=== PATIENT | male | born 1940 | race Caucasian/White ===

== ENCOUNTER → 2016-11-19 | Day surgery (SDC) | payer MEDICARE ==
[~2016-11-19] VITALS: Ht 180.3 cm; Wt 86.2 kg
[~2016-11-19] MED LIST: AMLO5TAB2 PO; ASP81CT PO; HURRICAINE EXT TUBE (BENZOCAINE) ONE; HURRICAINE EXT TUBE (BENZOCAINE) XX PRN; LISI1TAB6 PO; MIDAZOLAM 2 MG/2 ML (VERSED) VIAL ONE; NS IV 500 ML 500 ML IV PRN; NS IV 500 ML 500 ML ONE; OMEG1CAP51 PO; fentaNYL INJECTION 100 MCG/2 ML AMP ONE
[2016-11-19 12:50] VITALS: BP 144/93
[2016-11-19] MEDS: fentaNYL INJECTION 100 MCG/2 ML AMP IVP PRN ×2 (15:04→15:07)
--- NOTE | 2016-11-19 15:04 | Conscious Sedation/ASA ---
Conscious Sedation Pre-Proced Time Reviewed: 15:04 ASA Class: 2 Airway Mallampati Classification: ([place] appropriate class) I. II. III, IV Lungs Heart ASA score ASA 1: a normal healthy patient ASA 2: a patient with a mild systemic disease (mid diabetes, controlled hypertension, obesity ASA 3: a patient with a severe systemic disease that limits activity (angina , COPD, prior Myocardial infarction) ASA 4: a patient with an incapacitating disease that is a constant threat to life (CHF, renal failure) ASA 5: a moribund patient not expected to survive 24 hrs. (ruptured aneurysm) ASA 6: a declared brain patient whose organs are being harvested. For emergent operations, add the letter E after the classification Grade 1 Sedation Plan: Discussed options with patient/fam Note The patient is an appropriate candidate to undergo the planned procedure, sedation, and anesthesia. The patient immediately re-assessed prior to indication. CHRIS BLOOD MD Nov 19, 2016 3:04 pm
--- NOTE | 2016-11-19 15:04 | History & Physicial ---
History of Present Illness History of Present Illness Reason for visit/HPI to undergo an upper endoscopy regarding possible food impaction in his esophagus. Date of Admission Date Seen by Provider: Nov 19, 2016 Time Seen by Provider: 15:02 I consulted on this patient on 11/19/16 15:01 Attending Physician Chris Blood MD Admitting Physician Shaji Gil DO Consult Allergies and Home Medications Allergies Coded Allergies: Penicillins (Verified Allergy, Unknown, 11/19/16) Home Medications Amlodipine Besylate 5 Mg Tablet, 5 MG PO DAILY, (Reported) Lisinopril/Hydrochlorothiazide 1 Each Tablet, 1 EACH PO DAILY, (Reported) Past Yitzitj-Tyjihj-Shcgqf Hx Patient Social History Marrital Status: Employed/Student: self-employed Alcohol Use: Occasionally Uses Recreational Drug Use: No Smoking Status: Never a Smoker Recent Foreign Travel: No Contact w/other who traveled: No Recent Hopitalizations: No Immunizations Up To Date Date of Pneumonia Vaccine: May 06, 2016 Surgeries HX Surgeries: Yes (ROTAROR CUFF SURG. X2 ) Surgeries: Joint Replacement Respiratory Hx Respiratory Disorders: No Cardiovascular Hx Cardiovascular Disorders: No Neurological Hx Neurological Disorders: No Reproductive System Hx Reproductive Disorders: No Sexually Transmitted Disease: No HIV/AIDS: No Genitourinary Hx Genitourinary Disorders: No Gastrointestinal Hx Gastrointestinal Disorders: No Musculoskeletal Hx Musculoskeletal Disorders: No Endocrine Hx Endocrine Disorders: No HEENT HX ENT Disorders: No Cancer Hx Cancer: No Psychosocial Hx Psychiatric Problems: No Blood Transfusions Hx Blood Disorders: No Constitutional: no symptoms reported EENTM: throat pain Respiratory: cough Cardiovascular: no symptoms reported Gastrointestinal: dysphagia, nausea, vomiting Genitourinary: no symptoms reported Musculoskeletal: no symptoms reported Skin: no symptoms reported Psychiatric/Neurological: No Symptoms Reported Physical Exam Vital Signs Vital Sign - Last 12Hours 11/19/16 12:50 Temp 97.7 Pulse 76 Resp 20 B/P (MAP) 144/93 Pulse Ox 97 O2 Delivery Room Air Capillary Refill : General Appearance: Moderate Distress HEENT: Normal ENT Inspection Neck: Normal Inspection Respiratory: Lungs Clear Cardiovascular: Regular Rate, Rhythm Gastrointestinal: Non Tender, Soft Extremity: Normal Inspection Skin: Warm/Dry Assessment/Plan Assessment and Plan gentleman with a possible food impaction in his esophagus. Upper endoscopy with therapeutic intent offered. Willing to proceed Problems: CHRIS BLOOD MD Nov 19, 2016 3:04 pm
[2016-11-19] MEDS: MIDAZOLAM 2 MG/2 ML (VERSED) VIAL IVP PRN ×3 (15:06→15:08)
--- NOTE | 2016-11-19 15:23 | Endo Procedure Record ---
Endo Procedure Report Date of Procedure Nov 19, 2016 Surgeon (s) CHRIS BLOOD MD Post Procedure/Op Diagnosis impacted food in the distal esophagus. Distal esophageal stricture with inflammation Procedure Performed EGD with disimpaction of food Description of Procedure Anesthesia Type: Conscious Sedation Specimen(s) collected/removed none Description of the Procedure Indication for procedure: This gentleman presented with infection of the piece of rib in his esophagus over a 24-hour period he was offered therapeutic endoscopy.informed consent was obtained after reviewing the procedure in detail. Description of procedure:He was placed in the left lateral disposition and his vital signs were monitored. Conscious sedation was achieved using Versed and fentanyl. The flexible gastroscope was introduced down the esophagus where a piece of rib was found impacted at the distal end. It was gently disimpacted into the stomach. Further examination confirmed an inflamed distal esophageal stricture To avoid iatrogenic perforation, balloon dilatation was deferred. He tolerated the procedure well and was taken back to the nursing area in a stable condition. Impression: Food impaction at the distal esophagus due to a stricture. Successful endoscopic disimpaction.Will schedule an elective balloon dilatation in 2 weeks. Copies To: CAROLANN ROMAN XAVIER M MD Nov 19, 2016 3:23 pm
--- NOTE | 2016-11-19 15:25 | Discharge Inst-Simple/Standard ---
Discharge Inst-Standard Discharge Medications New, Converted or Re-Newed RX: Other Patient Instructions/Follow Up Plan of Care/Instructions/FU: my office will schedule an elective balloon dilatation in 2 weeks.soft diet for 3-4 days. Activity as Tolerated: Yes Discharge Diet: Soft Diet CHRIS BLOOD MD Nov 19, 2016 3:25 pm
[2016-11-19 15:50] VITALS: BP 104/55
[2016-11-19 16:20] VITALS: BP 145/93
[2016-11-19 16:25] VITALS: BP 145/93
== END | disposition home or self-care (01) ==
LOC: ENDO 12:27
PROVIDERS: ATTEND Surgery
DX: K22.2 Esophageal obstruction (principal); T18.128A Food in esophagus causing other injury, initial encounter

== ENCOUNTER → 2016-11-25 | Outpatient (CLI) | payer MEDICARE ==
[~2016-11-25] MED LIST changes: -HURRICAINE EXT TUBE (BENZOCAINE) ONE; -HURRICAINE EXT TUBE (BENZOCAINE) XX PRN; -MIDAZOLAM 2 MG/2 ML (VERSED) VIAL ONE; -NS IV 500 ML 500 ML IV PRN; -NS IV 500 ML 500 ML ONE; -fentaNYL INJECTION 100 MCG/2 ML AMP ONE
== END ==
LOC: PREOP 05:46
PROVIDERS: ATTEND Surgery
DX: Z01.818 Encounter for other preprocedural examination (principal); K22.2 Esophageal obstruction

== ENCOUNTER 2016-12-01 09:20 | Day surgery (SDC) | payer MEDICARE ==
[~2016-12-01] VITALS: Ht 177.8 cm; Wt 86.2 kg
[2016-12-01] MEDS ORDERED: NS IV 500 ML 500 ML ONE (09:28)
[2016-12-01] MEDS ORDERED: NS IV 500 ML 500 ML IV ONE (09:30)
[2016-12-01 09:40] VITALS: BP 133/90
[2016-12-01] MEDS ORDERED: OMG1KC PO (09:44)
[2016-12-01] MEDS ORDERED: ASPI-586 PO (09:44)
--- NOTE | 2016-12-01 10:46 | Conscious Sedation/ASA ---
Conscious Sedation Pre-Proced Time Reviewed: 10:46 ASA Class: 2 Airway Mallampati Classification: (osage appropriate class) I. II. III, IV Lungs Heart ASA score ASA 1: a normal healthy patient ASA 2: a patient with a mild systemic disease (mid diabetes, controlled hypertension, obesity ASA 3: a patient with a severe systemic disease that limits activity (angina , COPD, prior Myocardial infarction) ASA 4: a patient with an incapacitating disease that is a constant threat to life (CHF, renal failure) ASA 5: a moribund patient not expected to survive 24 hrs. (ruptured aneurysm) ASA 6: a declared brain patient whose organs are being harvested. For emergent operations, add the letter E after the classification Grade 1 Sedation Plan: Discussed options with patient/fam Note The patient is an appropriate candidate to undergo the planned procedure, sedation, and anesthesia. The patient immediately re-assessed prior to indication. CHRIS BLOOD MD Dec 01, 2016 10:46 am
--- NOTE | 2016-12-01 10:46 | History & Physicial ---
History of Present Illness History of Present Illness Reason for visit/HPI to undergo endoscopic balloon dilatation of an esophageal stricture Date of Admission Date Seen by Provider: Dec 01, 2016 Time Seen by Provider: 10:45 I consulted on this patient on 12/01/16 10:45 Attending Physician Chris Blood MD Admitting Physician Shaji Gil DO Consult Allergies and Home Medications Allergies Coded Allergies: Penicillins (Verified Allergy, Unknown, 11/19/16) Home Medications Amlodipine Besylate 5 Mg Tablet, 5 MG PO DAILY, (Reported) Aspirin 81 Mg Tablet.dr, 81 MG PO DAILY, (Reported) Lisinopril/Hydrochlorothiazide 1 Each Tablet, 1 EACH PO DAILY, (Reported) [place] 3 Polyunsat Fatty Acids 1,000 Mg Cap, 3,000 MG PO DAILY, (Reported) Past Uajdtdj-Xzvsif-Hhtsts Hx Patient Social History Marrital Status: Employed/Student: retired Alcohol Use: Regular Use Recreational Drug Use: No Smoking Status: Never a Smoker Recent Foreign Travel: No Contact w/other who traveled: No Recent Hopitalizations: No Recent Infectious Disease Expo: No Immunizations Up To Date Date of Pneumonia Vaccine: May 06, 2016 Surgeries HX Surgeries: Yes (ROTAROR CUFF SURG. X2 ) Surgeries: Gallbladder, Joint Replacement Respiratory Hx Respiratory Disorders: No Cardiovascular Hx Cardiovascular Disorders: Yes Cardiac Disorders: Hypertension Neurological Hx Neurological Disorders: No Reproductive System Hx Reproductive Disorders: No Sexually Transmitted Disease: No HIV/AIDS: No Genitourinary Hx Genitourinary Disorders: No Gastrointestinal Hx Gastrointestinal Disorders: Yes Gastrointestinal Disorders: Gastroesophageal Reflux Musculoskeletal Hx Musculoskeletal Disorders: No Endocrine Hx Endocrine Disorders: No HEENT HX ENT Disorders: No Cancer Hx Cancer: No Psychosocial Hx Psychiatric Problems: No Integumentary HX Skin/Integumentary Disorder: No Blood Transfusions Hx Blood Disorders: No Constitutional: no symptoms reported EENTM: no symptoms reported Respiratory: no symptoms reported Cardiovascular: no symptoms reported Gastrointestinal: no symptoms reported Genitourinary: no symptoms reported Musculoskeletal: no symptoms reported Skin: no symptoms reported Psychiatric/Neurological: No Symptoms Reported Physical Exam Vital Signs Vital Sign - Last 12Hours 12/01/16 09:40 Temp 97.7 Pulse 60 Resp 18 B/P (MAP) 133/90 Pulse Ox 98 O2 Delivery Room Air Capillary Refill : General Appearance: No Apparent Distress HEENT: Normal ENT Inspection Neck: Normal Inspection Respiratory: Lungs Clear Cardiovascular: Regular Rate, Rhythm Gastrointestinal: Non Tender, Soft Extremity: Normal Inspection Neurologic/Psychiatric: Alert, Oriented x3 Skin: Warm/Dry Assessment/Plan Assessment and Plan gentleman with a known esophageal stricture. 4 endoscopic balloon dilatation. Problems: CHRIS BLOOD MD Dec 01, 2016 10:46 am
[2016-12-01] MEDS ORDERED: MIDAZOLAM 2 MG/2 ML (VERSED) VIAL ONE ×3 (11:15→11:16)
[2016-12-01] MEDS ORDERED: HURRICAINE EXT TUBE (BENZOCAINE) ONE (11:16)
[2016-12-01] MEDS ORDERED: fentaNYL INJECTION 100 MCG/2 ML AMP ONE (11:16)
[2016-12-01] MEDS: fentaNYL INJECTION 100 MCG/2 ML AMP IVP PRN ×2 (11:28→11:35)
[2016-12-01] MEDS: MIDAZOLAM 2 MG/2 ML (VERSED) VIAL IVP PRN ×3 (11:30→11:38)
--- NOTE | 2016-12-01 11:51 | Endo Procedure Record ---
Endo Procedure Report Date of Procedure Dec 01, 2016 Surgeon (s) CHRIS BLOOD MD Post Procedure/Op Diagnosis esophageal stricture Procedure Performed EGD with balloon dilatation Description of Procedure Anesthesia Type: Conscious Sedation Specimen(s) collected/removed none Description of the Procedure Indication for procedure: This gentleman presented with food impaction in his esophagus about 10 days ago, requiring endoscopic management. A structure that was inflamed at the distal end of the esophagus was encountered. To reduce the risk of perforation, immediate balloon dilatation was avoided. He returns today for an elective balloon dilatation. Informed consent was obtained after reviewing the procedure in detail. Description of the procedure: He was placed in left lateral decubitus position and his vital signs were monitored. Conscious sedation was achieved using Versed and fentanyl. The flexible gastroscope was introduced down the esophagus , past the stomach, into the proximal duodenum. Finding and intervention: Concentric stricture at the distal end of the esophagus with resolution of previously noted inflammation. It was dilated to 18 mm with the balloon. Stomach and duodenum where normal. He tolerated the procedure well and was taken back to the nursing area in a stable condition Impression: Elective balloon dilatation of peptic esophageal stricture completed. Recommend proton pump inhibitors. Copies To: CAROLANN ROMAN XAVIER M MD Dec 01, 2016 11:51 am
[2016-12-01] MEDS ORDERED: PANT40TA2 PO (11:52)
--- NOTE | 2016-12-01 11:53 | Discharge Inst-Simple/Standard ---
Discharge Inst-Standard Discharge Medications New, Converted or Re-Newed RX: RX on Chart Patient Instructions/Follow Up Plan of Care/Instructions/FU: follow-up when necessary Activity as Tolerated: Yes Discharge Diet: No Restrictions CHRIS BLOOD MD Dec 01, 2016 11:53 am
[2016-12-01] MEDS ORDERED: HURRICAINE EXT TUBE (BENZOCAINE) XX ONE (12:00)
[2016-12-01 12:10] VITALS: BP 106/74
[2016-12-01 12:40] VITALS: BP 112/83
[2016-12-01 12:44] VITALS: BP 112/83
== END 2016-12-01 12:46 | disposition home or self-care (01) ==
LOC: ENDO 09:20
PROVIDERS: ATTEND Surgery
DX: K22.2 Esophageal obstruction (principal); I10 Essential (primary) hypertension; K21.9 Gastro-esophageal reflux disease without esophagitis

== ENCOUNTER 2017-10-07 13:10 | Outpatient (CLI) | payer MEDICARE ==
[~2017-10-07] VITALS: Ht 177.8 cm; Wt 86.2 kg
[~2017-10-07 13:10] MED LIST changes: +ASPI-586 PO; +OMG1KC PO; +PANT40TA2 PO
[2017-10-07] MEDS ORDERED: CYAN100092 IJ (13:15)
[2017-10-07] MEDS ORDERED: LISI40TA PO (13:15)
[2017-10-07] MEDS ORDERED: PANT40TA3 PO (13:15)
== END 2017-10-07 13:19 ==
LOC: PREOP 13:10
PROVIDERS: ATTEND Specialist
DX: Z01.818 Encounter for other preprocedural examination (principal)

== ENCOUNTER 2017-10-09 08:30 | Day surgery (SDC) | payer MEDICARE ==
[~2017-10-09] VITALS: Ht 177.8 cm; Wt 86.2 kg
[~2017-10-09 08:30] MED LIST changes: +CYAN100092 IJ; +LISI40TA PO; +PANT40TA3 PO
[2017-10-09 08:45] VITALS: BP 146/86
[2017-10-09] MEDS ORDERED: VANCOMYCIN/BSS (COMPOUNDED) 10 MG/ML SYR OP ONE (09:00)
[2017-10-09] MEDS ORDERED: EPINEPHrine INJECTION 1 MG/ML AMP INJ ONE (09:00)
[2017-10-09] MEDS ORDERED: POVIDONE (BETADINE) OPHTH SOLN 5% 30 ML OP ONE (09:00)
[2017-10-09] MEDS ORDERED: TIMOLOL MALEATE 0.5% 5 ML (TIMOPTIC) BTL OU PRN (09:00)
[2017-10-09] MEDS ORDERED: LIDOCAINE PF 1% 2 ML AMP IR PRN (09:00)
[2017-10-09] MEDS: TETRACAINE 0.5% OPHTH SOLN 4 ML BTL (SINGLE DOSE ONLY) OU PRN ×4 (09:03→09:35)
--- OUTSIDE RECORDS SUMMARY | 2017-10-09 09:12 | XMS REPORT | Continuity of Care Document ---
Author Author [facility] Organization [facility] Address Unknown Phone Unavailable Allergies Active Description Code Type Severity Reaction Onset Reported/Identified Relationship to Patient Clinical Status Yes PENICILLIN PENICILLIN Unknown N/A 03/21/2014 Yes Penicillins [id number] Drug Allergy Unknown N/A 11/19/2016 Medications There is no data. Problems Date Dx Coded Attending Type Code Diagnosis Diagnosed By 03/20/2014 KIRAN GANDHI MD Ot V72.84 03/20/2014 KIRAN GANDHI MD, Ot V72.84 03/21/2014 KIRAN GANDHI MD, Ot V72.84 03/21/2014 KIRAN GANDHI MD Ot 211.3 BENIGN NEOPLASM LG BOWEL 03/21/2014 KIRAN GANDHI MD Ot V76.51 SCREEN MAL NEOP-COLON 12/08/2014 KIRAN GANDHI MD Ot V72.84 12/12/2014 CAROLANN ROMAN DO Ot 786.07 12/12/2014 CAROLANN ROMAN DO Ot 786.2 12/22/2014 CAROLANN ROMAN DO Ot 786.07 12/22/2014 CAROLANN ROMAN DO Ot 786.2 01/02/2015 KIRAN GANDHI MD Ot V72.84 01/02/2015 CAROLANN ROMAN DO Ot 786.07 01/02/2015 ROMANCAROLANN SCHMIDT DO Ot 786.2 01/04/2015 ROMANCAROLANN SCHMIDT DO Ot 786.07 01/04/2015 ROMAN DOCAROLANN Ot 786.2 01/09/2015 ROMANCAROLANN LEVY DO Ot 242.90 01/24/2015 CAROLANN ROMAN DO Ot 242.90 01/31/2015 ROMANCAROLANN SCHMIDT DO Ot 242.90 01/31/2015 ROMANCAROLANN SCHMIDT DO Ot 242.90 02/12/2015 ROMANCAROLANN SCHMIDT DO Ot 242.90 11/20/2016 CAITIE DELONG, CHRIS Macias Ot K22.2 ESOPHAGEAL OBSTRUCTION 11/20/2016 CHRIS BLOOD MD Ot T18.128A FOOD IN ESOPHAGUS CAUSING OTHER INJURY, 11/26/2016 CHRIS BLOOD MD Ot K22.2 ESOPHAGEAL OBSTRUCTION 11/26/2016 CHRIS BLOOD MD Ot Z01.818 ENCOUNTER FOR OTHER PREPROCEDURAL EXAMIN 11/28/2016 HIRAM DELONG, KIRAN Marcus Ot V72.84 EXAM PRE-OPERATIVE NOS 11/28/2016 ROMANCAROLANN LEVY DO Ot 786.07 WHEEZING 11/28/2016 ROMANCAROLANN LEVY DO Ot 786.2 COUGH 11/28/2016 CAROLANN ROMAN DO Ot 242.90 THYROTOX NOS NO CRISIS 11/28/2016 CAROLANN ROMAN DO Ot 242.90 THYROTOX NOS NO CRISIS 11/28/2016 CHRIS BLOOD MD Ot K22.2 ESOPHAGEAL OBSTRUCTION 11/28/2016 CHRIS BLOOD MD Ot T18.128A FOOD IN ESOPHAGUS CAUSING OTHER INJURY, 11/28/2016 CHRIS BLOOD MD Ot K22.2 ESOPHAGEAL OBSTRUCTION 11/28/2016 CHRIS BLOOD MD Ot Z01.818 ENCOUNTER FOR OTHER PREPROCEDURAL EXAMIN 12/01/2016 CHRIS BLOOD MD Ot K22.2 ESOPHAGEAL OBSTRUCTION 12/01/2016 CHRIS BLOOD MD Ot T18.128A FOOD IN ESOPHAGUS CAUSING OTHER INJURY, 12/01/2016 CHRIS BLOOD MD Ot I10 ESSENTIAL (PRIMARY) HYPERTENSION 12/01/2016 CHRIS BLOOD MD Ot K21.9 GASTRO-ESOPHAGEAL REFLUX DISEASE WITHOUT 12/01/2016 CHRIS BLOOD MD Ot K22.2 ESOPHAGEAL OBSTRUCTION 12/02/2016 CHRIS BLOOD MD Ot I10 ESSENTIAL (PRIMARY) HYPERTENSION 12/02/2016 CHRIS BLOOD MD Ot K21.9 GASTRO-ESOPHAGEAL REFLUX DISEASE WITHOUT 12/02/2016 CHRIS BLOOD MD Ot K22.2 ESOPHAGEAL OBSTRUCTION 01/16/2017 CHRIS BLOOD MD Ot K22.2 ESOPHAGEAL OBSTRUCTION 01/16/2017 CHRIS BLOOD MD Ot T18.128A FOOD IN ESOPHAGUS CAUSING OTHER INJURY, 01/21/2017 CHRIS BLOOD MD Ot K22.2 ESOPHAGEAL OBSTRUCTION 01/21/2017 CHRIS BLOOD MD Ot T18.128A FOOD IN ESOPHAGUS CAUSING OTHER INJURY, Procedures There is no data. Results There is no data. Encounters ACCT No. Visit Date/Time Discharge Status Pt. Type Provider Facility Loc./Unit Complaint [id number] 12/01/2016 09:20:00 12/01/2016 12:46:00 DIS Outpatient CHRIS BLOOD MD [facility] ENDO STRICTURE [id number] 11/25/2016 05:46:00 11/25/2016 23:59:59 CLS Outpatient CHRIS BLOOD MD [facility] PREOP STRICTURE EGD [id number] 11/19/2016 12:27:00 11/19/2016 23:59:59 CLS Outpatient CHRIS BLOOD MD [facility] ENDO ESOPHAGEAL STRICTURE [id number] 01/11/2015 13:56:00 01/11/2015 23:59:59 CLS Outpatient CAROLANN ROMAN DO [facility] RAD HYPERTHYROID [id number] 01/02/2015 10:53:00 01/02/2015 23:59:59 CLS Outpatient CAROLANN ROMAN DO [facility] CARD HYPERTHYROID [id number] 12/08/2014 14:01:00 12/08/2014 23:59:59 CLS Outpatient CAROLANN ROMAN DO [facility] RAD COUGH,WHEEZING [id number] 03/21/2014 06:57:00 03/21/2014 10:00:00 DIS Outpatient KIRAN GANDHI MD [facility] SDC SCREENING [id number] 03/16/2014 07:21:00 03/16/2014 23:59:59 CLS Outpatient KIARN GANDHI MD [facility] PREOP SCREENING [id number] 01/11/2015 13:57:33 ACT Document Registration
[2017-10-09] MEDS: PHENYLEPHRINE 10% OPHTH (NEO-SYN) 5 ML BTL OU SCH ×3 (09:23→09:35)
[2017-10-09] MEDS: CYCLOPENTOLATE 1% (CYCLOGYL) 2 ML DROPS OP SCH ×3 (09:23→09:35)
--- NOTE | 2017-10-09 10:17 | Ophthalmologist Pre-Op Note ---
Pre-Operative Progress Note H&P Reviewed The H&P was reviewed, patient examined and no changes noted. Date H&P Reviewed: Oct 09, 2017 Time H&P Reviewed: 10:17 Pre-Op Dx Cataract, Left Eye NEELIMA PACHECO MD Oct 09, 2017 10:17
[2017-10-09] MEDS ORDERED: MIDAZOLAM 2 MG/2 ML (VERSED) VIAL ONE (10:20)
--- NOTE | 2017-10-09 10:40 | Ophthalmology Operative Report ---
Cataract removal/placement IOL PREOPERATIVE DIAGNOSIS: Cataract Left Eye POSTOPERATIVE DIAGNOSIS: Cataract Left Eye PROCEDURE: Cataract removal and placement of posterior chamber implant, left eye SURGEON: Kenan Pacheco ANESTHESIA: Topical with sedation COMPLICATIONS: None ESTIMATED BLOOD LOSS: Minimal DESCRIPTION OF PROCEDURE: After proper informed consent was obtained, the patient, a 77 male, was taken to the Operating Room and the left eye was anesthetized with tetracaine. The left eye was then prepped and draped in the usual manner. A wire lid speculum was placed. A paracentesis was made at the left hand position. Preservative free lidocaine was injected into the anterior chamber followed by viscoelastic. A clear corneal incision was made in the temporal position. A capsulorrhexis was preformed and the central nuclear and cortical material were removed. The posterior capsule was polished and an Mckay 16.0 [id number] IOL was placed into the capsular bag. The residual viscoelastic was aspirated and balanced saline solution was injected into the anterior chamber. 0.1 ml of Vancomycin (1mg/0.1ml ) was injected into the anterior chamber. The wound was checked and found to be water tight. The patient tolerated the procedure well without complications. KENAN PACHECO MD Oct 09, 2017 10:40
[2017-10-09 10:50] VITALS: BP 146/86
--- NOTE | 2017-10-09 13:40 | Anesthesia-General Post-Op ---
MAC Patient Condition Mental Status/LOC: Same as Preop Cardiovascular: Satisfactory Nausea/Vomiting: Absent Respiratory: Satisfactory Pain: Controlled Complications: Absent Post Op Complications Complications None Follow Up Care/Instructions Patient Instructions None needed. Anesthesiology Discharge Order Discharge Order Patient was seen after surgery and doing well, no complaints, stable vital signs , no apparent adverse anesthesia problems. AMBERLY OLIVERA DO Oct 09, 2017 13:40
== END 2017-10-09 10:54 | disposition home or self-care (01) ==
LOC: SDC 08:30
PROVIDERS: ATTEND Specialist
DX: H26.9 Unspecified cataract (principal); I10 Essential (primary) hypertension; Z79.82 Long term (current) use of aspirin; Z79.899 Other long term (current) drug therapy

== ENCOUNTER 2017-11-04 05:51 | Outpatient (CLI) | payer MEDICARE ==
[~2017-11-04] VITALS: Ht 177.8 cm; Wt 86.2 kg
== END 2017-11-04 11:56 | disposition home or self-care (01) ==
LOC: PREOP 05:51
PROVIDERS: ATTEND Specialist
DX: Z01.818 Encounter for other preprocedural examination (principal)

== ENCOUNTER 2017-11-06 07:23 | Day surgery (SDC) | payer MEDICARE ==
[~2017-11-06] VITALS: Ht 177.8 cm; Wt 86.2 kg
[2017-11-06 07:28] VITALS: BP 135/92
[2017-11-06] MEDS ORDERED: EPINEPHrine INJECTION 1 MG/ML AMP INJ ONE (07:30)
[2017-11-06] MEDS ORDERED: VANCOMYCIN/BSS (COMPOUNDED) 10 MG/ML SYR OP ONE (07:30)
[2017-11-06] MEDS ORDERED: POVIDONE (BETADINE) OPHTH SOLN 5% 30 ML OP ONE (07:30)
[2017-11-06] MEDS ORDERED: LIDOCAINE PF 1% 2 ML AMP IR PRN (07:30)
[2017-11-06] MEDS ORDERED: TIMOLOL MALEATE 0.5% 5 ML (TIMOPTIC) BTL OU PRN (07:30)
[2017-11-06] MEDS: TETRACAINE 0.5% OPHTH SOLN 4 ML BTL (SINGLE DOSE ONLY) OU PRN ×4 (07:40→08:00)
[2017-11-06] MEDS: PHENYLEPHRINE 10% OPHTH (NEO-SYN) 5 ML BTL OU SCH ×3 (07:45→08:00)
[2017-11-06] MEDS: CYCLOPENTOLATE 1% (CYCLOGYL) 2 ML DROPS OP SCH ×3 (07:46→08:00)
[2017-11-06] MEDS ORDERED: MIDAZOLAM 2 MG/2 ML (VERSED) VIAL ONE (08:13)
--- NOTE | 2017-11-06 08:18 | Ophthalmologist Pre-Op Note ---
Pre-Operative Progress Note H&P Reviewed The H&P was reviewed, patient examined and no changes noted. Date H&P Reviewed: Nov 06, 2017 Time H&P Reviewed: 08:17 Pre-Op Dx Cataract, Right Eye NEELIMA PACHECO MD Nov 06, 2017 08:17
--- NOTE | 2017-11-06 08:42 | Ophthalmology Operative Report ---
Cataract removal/placement IOL PREOPERATIVE DIAGNOSIS: Cataract Right Eye POSTOPERATIVE DIAGNOSIS: Cataract Right Eye PROCEDURE: Cataract removal and placement of posterior chamber implant, right eye SURGEON: Kenan Pacheco ANESTHESIA: Topical with sedation COMPLICATIONS: None ESTIMATED BLOOD LOSS: Minimal DESCRIPTION OF PROCEDURE: After proper informed consent was obtained, the patient, a 77 male, was taken to the Operating Room and the right eye was anesthetized with tetracaine. The right eye was then prepped and draped in the usual manner. A wire lid speculum was placed. A paracentesis was made at the left hand position. Preservative free lidocaine was injected into the anterior chamber followed by viscoelastic. A clear corneal incision was made in the temporal position. A capsulorrhexis was preformed and the central nuclear and cortical material were removed. The posterior capsule was polished and Mckay 17.0 SN6CWS IOL was placed into the capsular bag. The residual viscoelastic was aspirated and balanced saline solution was injected into the anterior chamber. Vancomycin was injected into the anterior chamber. The wound was checked and found to be water tight. The patient tolerated the procedure well without complications. KENAN PACHECO MD Nov 06, 2017 08:42
[2017-11-06 08:53] VITALS: BP 138/92
--- NOTE | 2017-11-06 09:27 | Anesthesia-General Post-Op ---
MAC Patient Condition Mental Status/LOC: Same as Preop Cardiovascular: Satisfactory Nausea/Vomiting: Absent Respiratory: Satisfactory Pain: Controlled Complications: Absent Post Op Complications Complications None Follow Up Care/Instructions Patient Instructions None needed. Anesthesiology Discharge Order Discharge Order Patient is doing well, no complaints, stable vital signs, no apparent adverse anesthesia problems. No complications reported per nursing. DOUG MC CRNA Nov 06, 2017 09:27
== END 2017-11-06 08:53 | disposition home or self-care (01) ==
LOC: SDC 07:23
PROVIDERS: ATTEND Specialist
DX: H26.9 Unspecified cataract (principal); I10 Essential (primary) hypertension; I48.91 Unspecified atrial fibrillation; Z79.82 Long term (current) use of aspirin; Z79.899 Other long term (current) drug therapy

== ENCOUNTER → 2017-11-23 | Outpatient (CLI) | payer MEDICARE | LOC: CARD 07:35 | PROVIDERS: ATTEND Internal Medicine | DX: I48.91 Unspecified atrial fibrillation (principal) | CPT/HCPCS: 93225; 93226 ==

== ENCOUNTER → 2017-12-08 | Outpatient (CLI) | payer MEDICARE | LOC: CARD 12:40 | PROVIDERS: ATTEND Internal Medicine | DX: I48.91 Unspecified atrial fibrillation (principal) | CPT/HCPCS: 93306 ==

== ENCOUNTER 2017-12-31 13:48 | Outpatient (CLI) | payer MEDICARE ==
[~2017-12-31 13:48] MED LIST changes: -AMLO5TAB2 PO; +AMLO5TAB7 PO
== END 2017-12-31 14:00 | disposition home or self-care (01) ==
LOC: SLEEP 13:48
PROVIDERS: ATTEND Internal Medicine Cardiovascular Disease
DX: G47.33 Obstructive sleep apnea (adult) (pediatric) (principal); I48.1 Persistent atrial fibrillation; I10 Essential (primary) hypertension; I49.3 Ventricular premature depolarization; I27.20 Pulmonary hypertension, unspecified

== ENCOUNTER 2018-02-15 20:45 | Outpatient (CLI) | payer MEDICARE | END 2018-02-16 06:20 | disposition home or self-care (01) | LOC: SLEEP 20:45 | PROVIDERS: ATTEND Nurse Practitioner Family | DX: G47.33 Obstructive sleep apnea (adult) (pediatric) (principal); G47.31 Primary central sleep apnea; G47.36 Sleep related hypoventilation in conditions classified elsewhere; G47.10 Hypersomnia, unspecified | CPT/HCPCS: 95811 ==

== ENCOUNTER → 2018-06-28 | Outpatient (CLI) | payer MEDICARE ==
[~2018-06-28] MED LIST changes: -AMLO5TAB7 PO; +AMLO5TAB9 PO
--- NOTE | 2018-06-28 18:28 | Diagnostic Imaging Report ---
INDICATION: Neck pain. AP, odontoid, and lateral views of the cervical spine are obtained. FINDINGS: Cervical vertebrae are normal in height and alignment. There is diffuse osteophyte formation throughout the cervical region with mild disc space narrowing. There is diffuse facet degenerative change which appears more prominent on the left than on the right. IMPRESSION: Diffuse degenerative findings in cervical spine as described above with no evidence of fracture or subluxation. Dictated by: Dictated on workstation # [id number]
== END ==
LOC: RAD 11:29
PROVIDERS: ATTEND Chiropractor Sports Physician
DX: M47.812 Spondylosis without myelopathy or radiculopathy, cervical region (principal); M50.30 Other cervical disc degeneration, unspecified cervical region; M25.78 Osteophyte, vertebrae
CPT/HCPCS: 72040

== ENCOUNTER → 2019-10-24 | Outpatient (CLI) | payer MEDICARE ==
[~2019-10-24] MED LIST changes: +AMIO200T4 PO; +AMLO10TA7 PO; +APIX5TAB PO; +CARB10DR5 OU; +CLIN300C11 PO; +IBUP-2185 PO; +LISI1TAB29 PO; -LISI1TAB6 PO; +METO-351 PO
--- NOTE | 2019-10-24 16:30 | Diagnostic Imaging Report ---
Indication: Right rib injury 3 views of the right ribs do not show any displaced fractures. There is no effusion or pneumothorax. IMPRESSION: Negative right ribs. There are moderate to severe degenerative changes of the right shoulder. Dictated by: Dictated on workstation # [id number]
== END ==
LOC: RAD 16:00
PROVIDERS: ATTEND Internal Medicine
DX: M19.011 Primary osteoarthritis, right shoulder (principal); R07.89 Other chest pain
CPT/HCPCS: 71100

== ENCOUNTER 2019-11-21 11:49 | Emergency (ER) | payer MEDICARE ==
[~2019-11-21] VITALS: Ht 177.8 cm; Wt 83.9 kg
[2019-11-21] MEDS ORDERED: fentaNYL INJECTION 100 MCG/2 ML AMP ONE (12:10)
[2019-11-21] MEDS ORDERED: proPOfol 200 MG/20 ML (DIPRIVAN) VIAL IV ONE ×2 (12:10→12:15)
--- NOTE | 2019-11-21 12:10 | NUR ---
1210- CONSENT SIGNED AND TIMEOUT PERFORMED FOR PROCEDURE. HR 151, RR 19, 95% RA, 98/83 1212-25MCG FENTNAYL ADMINISTERED 1213- 20MG PROPOFOL ADMINISTERED BY Sriram CARTER APRN 1215- 10 MG PROPOFOL ADMINISTERED BY Sriram CARTER APRN 1216- ZOLL CHARGED TO 120 JOULES, SHOCK ADMINISTERED 1216- HR 80.RR 17, 93% 4LNC, 110/74
[2019-11-21] MEDS ORDERED: fentaNYL INJECTION 100 MCG/2 ML AMP IVP PRN (12:15)
[2019-11-21] MEDS ORDERED: NS IV 1000 ML 1,000 ML IV SCH (12:15)
[2019-11-21 12:20] LABS: BASOPHILS % (AUTO) 0 % (0-10); EOSINOPHILS % (AUTO) 0 % (0-10); HEMATOCRIT 41 % (40-54); HEMOGLOBIN 13.9 G/DL (13.3-17.7); LYMPHOCYTES # (AUTO) 1.4 X 10^3 (1.0-4.0); LYMPHOCYTES % (AUTO) 18 % (12-44); MEAN CORPUSCULAR HEMOGLOBIN 28 PG (25-34); MEAN CORPUSCULAR HGB CONC 34 G/DL (32-36); MEAN CORPUSCULAR VOLUME 84 FL (80-99); MEAN PLATELET VOLUME 9.6 FL (7.4-10.4); MONOCYTES # (AUTO) 0.5 X 10^3 (0.0-1.0); MONOCYTES % (AUTO) 6 % (0-12); NEUTROPHILS # (AUTO) 5.7 X 10^3 (1.8-7.8); NEUTROPHILS % (AUTO) 75 % (42-75); PLATELET COUNT 260 10^3/uL (130-400); RED CELL DISTRIBUTION WIDTH 15.4 % (10.0-14.5); WHITE BLOOD COUNT 7.6 10^3/uL (4.3-11.0)
[2019-11-21 12:24] LABS: INR 1.5 (0.8-1.4); PROTHROMBIN TIME PATIENT 18.3 SEC (12.2-14.7)
[2019-11-21 12:26] LABS: ALBUMIN 4.1 GM/DL (3.2-4.5)
[2019-11-21 12:27] LABS: POTASSIUM 4.1 MMOL/L (3.6-5.0)
[2019-11-21 12:28] LABS: CALCIUM 9.5 MG/DL (8.5-10.1)
--- NOTE | 2019-11-21 12:28 | ED Cardiac General ---
History of Present Illness General Chief Complaint: Cardiac/General Problems Stated Complaint: ACCELERATED HEART RATE Nursing Triage Note: PT BROUGHT FROM DR TAYLOR OFFICE WITH COMPLAINT OF RAPID HR. Source: patient Exam Limitations: no limitations History of Present Illness Date Seen by Provider: Nov 21, 2019 Time Seen by Provider: 11:50 Initial Comments ER with reports of tachycardia. He rolled over in bed and noticed his heartbeat seems to be well a.m. today. I will he decided to come to the emergency room. No chest pain or shortness of breath. He has an implanted pacemaker/defibrillator. History of atrial fibrillation maintained on Eliquis and amiodarone Timing/Duration: 1/2 hour Activities at Onset: none NTG SL INDUSTRIAL MANAGEMENT TEACHER: No ASA po INDUSTRIAL MANAGEMENT TEACHER: No Associated Systoms: Denies Symptoms Allergies and Home Medications Allergies Coded Allergies: Penicillins (Verified Allergy, Unknown, 11/19/16) Home Medications Amiodarone HCl 200 Mg Tablet, 200 MG PO BID Take 2 tablet twice a day for one week then Take one tablet twice a day Prescribed by: ROMINA TRUJILLO on 09/30/19 09 Apixaban 5 Mg Tablet, 5 MG PO BID, (Reported) RECIEVED SAMPLES ON 08-09-2019 #60/30DS Carboxymethylcellulos/Glycerin 10 Ml Drops, 2 DROPS OU TID PRN for DRY EYES, (Reported) Clindamycin HCl 300 Mg Capsule, 300 MG PO TID Prescribed by: ROMINA TRUJILLO on 09/30/19905 Cyanocobalamin (Vitamin B-12) 1,000 Mcg/1 Ml Kit, 1,000 MCG IJ MONTHLY, (Reported) Ibuprofen 200 Mg Capsule, 600 MG PO Q8H PRN for PAIN-MILD (1-4), (Reported) Lisinopril 40 Mg Tablet, 40 MG PO DAILY, (Reported) Metoprolol Succinate 25 Mg Tab.er.24h, 25 MG PO DAILY Prescribed by: ROMINA TRUJILLO on 09/30/19 09 Kell 3 Polyunsat Fatty Acids 1,000 Mg Cap, 3,000 MG PO HS, (Reported) Patient Home Medication List Home Medication List Reviewed: Yes Review of Systems Review of Systems Constitutional: see HPI EENTM: No Symptoms Reported Respiratory: No Symptoms Reported Cardiovascular: No Symptoms Reported Gastrointestinal: See HPI Genitourinary: No Symptoms Reported Musculoskeletal: no symptoms reported Skin: no symptoms reported Psychiatric/Neurological: No Symptoms Reported Endocrine: No Symptoms Reported Hematologic/Lymphatic: No Symptoms Reported Past Wcvqjbg-Sxqqav-Wgxgvb Hx Patient Social History Alcohol Use: Occasionally Uses Number of Drinks Today: AA Alcohol Beverage of Choice: Beer Recreational Drug Use: No Smoking Status: Never a Smoker Recent Foreign Travel: No Contact w/Someone Who Travel: No Recent Infectious Disease Expo: No Recent Hopitalizations: No Immunizations Up To Date Date of Pneumonia Vaccine: May 06, 2016 Past Medical History Surgeries: Yes (ROTAROR CUFF SURG. X2 ) Gallbladder, Joint Replacement Respiratory: No Cardiac: Yes Hypertension Neurological: No Reproductive Disorders: No Sexually Transmitted Disease: No HIV/AIDS: No Gastrointestinal: Yes Gastroesophageal Reflux Musculoskeletal: No Endocrine: No Cancer: No Psychosocial: No Integumentary: No Blood Disorders: No Family Medical History No Pertinent Family Hx Physical Exam Vital Signs Vital Signs - First Documented 11/21/19 11/21/19 11:50 12:18 Temp 36.8 Pulse 156 Resp 16 B/P (MAP) 119/94 (102) Pulse Ox 99 O2 Delivery Room Air O2 Flow Rate 4.00 Capillary Refill : Less Than 3 Seconds Height, Weight, BMI Height: 5'10.00" Weight: 190lbs. 0.0oz. 86.330911yg; 26.00 BMI Method: General Appearance: No Apparent Distress, WD/WN Neck: Full Range of Motion, Normal Inspection Respiratory: No Accessory Muscle Use, No Respiratory Distress Cardiovascular: Normal Peripheral Pulses, Tachycardia (wide-complex tachycardia rate of 155. Alert and mentating well.) Gastrointestinal: Non Tender, Soft Neurologic/Psychiatric: Alert, Oriented x3 Skin: Normal Color, Warm/Dry Procedures/Interventions Patient Education: Explained Benefits, Explained Risks, Pt. Ack. Understanding Breath Sounds per Auscultation: Clear Heart Sounds per Auscultation: Regular Airway Exam: Mouth opens >2 fingers Sedation Adminstration Time: 1542 Total Time spent in 10 minutes Progress/Results/Core Measures Results/Orders Lab Results Laboratory Tests Test 11/21/19 11:58 Range/Units White Blood Count 7.6 4.3-11.0 10^3/uL Red Blood Count 4.91 4.35-5.85 10^6/uL Hemoglobin 13.9 13.3-17.7 G/DL Hematocrit 41 40-54 % Mean Corpuscular Volume 84 80-99 FL Mean Corpuscular Hemoglobin 28 25-34 PG Mean Corpuscular Hemoglobin Concent 34 32-36 G/DL Red Cell Distribution Width 15.4 H 10.0-14.5 % Platelet Count 260 130-400 10^3/uL Mean Platelet Volume 9.6 7.4-10.4 FL Neutrophils (%) (Auto) 75 42-75 % Lymphocytes (%) (Auto) 18 12-44 % Monocytes (%) (Auto) 6 0-12 % Eosinophils (%) (Auto) 0 0-10 % Basophils (%) (Auto) 0 0-10 % Neutrophils # (Auto) 5.7 1.8-7.8 X 10^3 Lymphocytes # (Auto) 1.4 1.0-4.0 X 10^3 Monocytes # (Auto) 0.5 0.0-1.0 X 10^3 Eosinophils # (Auto) 0.0 0.0-0.3 10^3/uL Basophils # (Auto) 0.0 0.0-0.1 10^3/uL Prothrombin Time 18.3 H 12.2-14.7 SEC INR Comment 1.5 H 0.8-1.4 Activated Partial Thromboplast Time 37 H 24-35 SEC Sodium Level 140 135-145 MMOL/L Potassium Level 4.1 3.6-5.0 MMOL/L Chloride Level 105 98-107 MMOL/L Carbon Dioxide Level 23 21-32 MMOL/L Anion Gap 12 5-14 MMOL/L Blood Urea Nitrogen 16 7-18 MG/DL Creatinine 1.68 H 0.60-1.30 MG/DL Estimat Glomerular Filtration Rate 40 BUN/Creatinine Ratio 10 Glucose Level 127 H 70-105 MG/DL Calcium Level 9.5 8.5-10.1 MG/DL Corrected Calcium 9.4 8.5-10.1 MG/DL Magnesium Level 1.9 1.6-2.4 MG/DL Total Bilirubin 1.3 H 0.1-1.0 MG/DL Aspartate Amino Transf (AST/SGOT) 39 H 5-34 U/L Alanine Aminotransferase (ALT/SGPT) 32 0-55 U/L Alkaline Phosphatase 75 40-136 U/L Myoglobin 139.0 H 10.0-92.0 NG/ML Troponin I < 0.028 <0.028 NG/ML B-Type Natriuretic Peptide 735.1 H <100.0 PG/ML Total Protein 8.2 6.4-8.2 GM/DL Albumin 4.1 3.2-4.5 GM/DL My Orders Orders - JORDYN CARTER APRN Diltiazem Injection (Cardizem Injection) (11/21/19 11:56) Ns Iv 1000 Ml (Sodium Chloride 0.9%) (11/21/19 12:15) Diltiazem Injection (Cardizem Injection) (11/21/19 12:15) Cbc With Automated Diff (11/21/19 12:07) Magnesium (11/21/19 12:07) Chest 1 View, Ap/Pa Only (11/21/19 12:07) Ekg Tracing (11/21/19 12:07) Comprehensive Metabolic Panel (11/21/19 12:07) Myoglobin Serum (11/21/19 12:07) Protime With Inr (11/21/19 12:07) Partial Thromboplastin Time (11/21/19 12:07) O2 (11/21/19 12:07) Monitor-Rhythm Ecg Trace Only (11/21/19 12:07) Ed Iv/Invasive Line Start (11/21/19 12:07) BNP (11/21/19 12:07) Troponin I (11/21/19 12:07) Propofol Injection (Diprivan Injection) (11/21/19 12:15) Fentanyl Injection (Sublimaze Injection (11/21/19 12:15) Fentanyl Injection (Sublimaze Injection (11/21/19 12:10) Propofol Injection (Diprivan Injection) (11/21/19 12:10) Ekg Tracing (11/21/19 13:44) Ekg Tracing (11/21/19 13:44) Medications Given in ED Vital Signs/I&O 11/21/19 11/21/19 11/21/19 11/21/19 11:50 12:10 12:18 13:40 Temp 36.8 Pulse 156 60 Resp 16 18 B/P (MAP) 119/94 (102) 98/63 Pulse Ox 99 94 O2 Delivery Room Air Room Air Nasal Cannula Room Air O2 Flow Rate 4.00 Blood Pressure Mean: 102 Departure Communication (Admissions) 1210-there was absolutely no change in rate despite 20 mg of IV Cardizem. Blood pressure got down to 90 systolic. Maintained a 154 heart rate wide-complex area and made to proceed with electrical cardioversion since he is maintained on oral anticoagulation. He was given 30 mg of propofol 25 g of fentanyl and cardioverted at 120 J synchronized. Converted to a rate of 80 paced, blood pressure 110/74. Patient tolerated very well. Spoke with Dr. Huang from cardiology agrees patient can go home since he is back to normal Impression Primary Impression: Wide-complex tachycardia Disposition: HOME, SELF-CARE Condition: Improved Departure-Patient Inst. Decision time for Depature: 13:24 Referrals: CAROLANN ROMAN DO (PCP/Family) Primary Care Physician Patient Instructions: Atrial Fibrillation (DC) Add. Discharge Instructions: 1. Call Dr. Taylor office today to make an appointment to be seen tomorrow. Return to ER for any concerns. All discharge instructions reviewed with patient and/or family. Voiced understanding. Copy Copies To 1: ROMINA TRUJILLO MD, PETER J APRN Nov 21, 2019 12:27
[2019-11-21 12:29] LABS: TOTAL PROTEIN 8.2 GM/DL (6.4-8.2)
[2019-11-21 12:31] LABS: BILIRUBIN,TOTAL 1.3 MG/DL (0.1-1.0)
[2019-11-21 12:33] LABS: CREATININE SERUM 1.68 MG/DL (0.60-1.30)
[2019-11-21 12:36] LABS: MAGNESIUM 1.9 MG/DL (1.6-2.4)
--- NOTE | 2019-11-21 12:36 | NUR ---
PT ALERT AND ORIENTED. SITTING UP IN BED
[2019-11-21 13:40] VITALS: BP 98/63
--- NOTE | 2019-11-21 13:42 | Diagnostic Imaging Report ---
INDICATION: Tachycardia. COMPARISON: 09/29/2019. FINDINGS: Single frontal radiographic view of the chest was obtained and demonstrates stable cardiomegaly. Pulmonary vasculature however is within normal limits. Lungs show low inspiratory volumes, but are otherwise clear. There is no focal consolidation, large effusion, nor pneumothorax. Osseous structures show no gross acute abnormalities. Left-sided AICD is noted. IMPRESSION: 1. Mild cardiomegaly, but no evidence of failure or focal infiltrate. Dictated by: Dictated on workstation # [id number]
== END 2019-11-21 13:40 | disposition home or self-care (01) ==
LOC: EDUNIT# 11:49 → ER 11:51
DX: R00.0 Tachycardia, unspecified (principal); I48.91 Unspecified atrial fibrillation; I10 Essential (primary) hypertension; Z79.01 Long term (current) use of anticoagulants; Z95.810 Presence of automatic (implantable) cardiac defibrillator; Z88.0 Allergy status to penicillin
CPT/HCPCS: 36415; 71045; 80053; 83735; 83874; 83880; 84484; 85025; 85610; 85730; 93005; 93041

== ENCOUNTER 2019-11-22 20:00 | Inpatient (IN) | payer MEDICARE ==
[~2019-11-22] VITALS: Ht 177.8 cm; Wt 83.7 kg
[2019-11-22] MEDS ORDERED: NS IV 1000 ML 1,000 ML ONE (20:16)
[2019-11-22] MEDS ORDERED: NS IV 1000 ML 1,000 ML IV SCH (20:18)
[2019-11-22] MEDS ORDERED: PROPOFOL DRIP (ICU) 100 ML IV ONE (20:20)
[2019-11-22] MEDS ORDERED: fentaNYL INJECTION 100 MCG/2 ML AMP ONE (20:20)
--- NOTE | 2019-11-22 20:23 | NUR ---
2022- TIMEOUT PERFORMED, DR ALVARADO AT BEDSIDE. 2024- 25MCG FENTANYL 2026- 30MG PROPOFOL IV PUSH ADMINISTERED DR ALVARADO. 2027- PT PLACED ON 4LNC 2029- RESPIRATORY DRIVE DECREASED, PT BAGGED AT THIS TIME 2030- FIRST SHOCK ADMINISTERED @ 120 JOULES 2032- 0.4MG NARCAN ADMINISTERED IV; NPA PLACED AT THIS TIME 2033- SECOND SHOCK ADMINISTERED @ 150 JOULES 2035- PT BACK IN SINUS RHYTHM. HR IN 60s 2044- PT ALERT AND SITTING UP IN BED. VSS
[2019-11-22 20:25] LABS: BASOPHILS % (AUTO) 0 % (0-10); EOSINOPHILS % (AUTO) 0 % (0-10); HEMATOCRIT 41 % (40-54); HEMOGLOBIN 13.8 G/DL (13.3-17.7); LYMPHOCYTES # (AUTO) 1.6 X 10^3 (1.0-4.0); LYMPHOCYTES % (AUTO) 20 % (12-44); MEAN CORPUSCULAR HEMOGLOBIN 29 PG (25-34); MEAN CORPUSCULAR HGB CONC 34 G/DL (32-36); MEAN CORPUSCULAR VOLUME 85 FL (80-99); MEAN PLATELET VOLUME 9.7 FL (7.4-10.4); MONOCYTES # (AUTO) 0.5 X 10^3 (0.0-1.0); MONOCYTES % (AUTO) 7 % (0-12); NEUTROPHILS # (AUTO) 5.7 X 10^3 (1.8-7.8); NEUTROPHILS % (AUTO) 73 % (42-75); PLATELET COUNT 244 10^3/uL (130-400); RED CELL DISTRIBUTION WIDTH 15.6 % (10.0-14.5); WHITE BLOOD COUNT 7.8 10^3/uL (4.3-11.0)
[2019-11-22] MEDS ORDERED: NALOXONE 0.4 MG/ML 1 ML (NARCAN) VIAL ONE (20:29)
[2019-11-22 20:34] LABS: INR 1.5 (0.8-1.4); PROTHROMBIN TIME PATIENT 18.8 SEC (12.2-14.7)
[2019-11-22 20:40] LABS: MAGNESIUM 2.8 MG/DL (1.6-2.4)
[2019-11-22] MEDS ORDERED: AMIODARONE INJECTION 450 MG in D5W IV SOLUTION (EXCEL) 250 ML IV SCH (20:45)
--- NOTE | 2019-11-22 21:17 | Diagnostic Imaging Report ---
INDICATION: Tachycardia COMPARISON is made to study of one day earlier. AP view of the chest reveals cardiomegaly. Left anterior chest wall defibrillator device remains in place. There is no evidence of pneumothorax or pulmonary edema. Pulmonary vascularity is at the upper limits of normal. Degenerative findings are seen in the shoulders. IMPRESSION: 1. Cardiomegaly with pulmonary vascularity at the upper limits of normal. 2. No overt pulmonary edema or other adverse change is seen. Dictated by: Dictated on workstation # [id number]
--- NOTE | 2019-11-22 21:37 | ED Cardiac General ---
History of Present Illness General Chief Complaint: Conscious Sedation Stated Complaint: HEART RATE 145 Nursing Triage Note: PT AMB TO RM 2 WITH COMPLAINT OF HIGH HEARTRATE. PT WAS SEEN AT DR TAYLOR THIS MORNING AT 0900 AND HAD CHANGES IN MEDICATIONS. PT WAS SEEN IN ER YESTERDAY AND CARDIOVERTED. Source: patient, old records History of Present Illness Date Seen by Provider: Nov 22, 2019 Time Seen by Provider: 20:15 Initial Comments PT ARRIVES VIA POV FROM HOME PT HAS HISTORY OF WIDE COMPLEX TACHYCARDIA HAD PACEMAKER/DEFIBRILLATOR PLACED IN SEPTEMBER FOR THIS PROBLEM PT SEEN HERE YESTERDAY FOR RECURRENCE--NO RESPONSE TO CARDIZEM, HAD SUCCESSFUL CARDIOVERSION AT 120 J UNDER CONSCIOUS SEDATION. WAS SENT HOME PT SEEN BY DR. TRUJILLO THIS MORNING AT 0900. STATES HIS AMIODARONE DOSE WAS DOUBLED AND HE WAS STARTED ON TOPROL. HAS TAKEN ALL OF THESE DOSES TODAY AROUND NOON TODAY, HE "WASN'T DOING ANYTHING" AND HE BEGAN HAVING TACHYCARDIA AGAIN. THIS HAS BEEN CONSTANT ALL DAY. DID NOT ATTEMPT TO CONTACT DR. TRUJILLO THIS AFTERNOON FOR THIS NO CHEST PAIN NO SHORTNESS OF BREATH NO SWEATS NO DIZZINESS OR SYNCOPE PT IS ON ELIQUIS, AND HAS TAKEN HIS DOSE TODAY PCP: DR. ROMAN NATIONAL ACCOUNT REPRESENTATIVE: DR. TRUJILLO Allergies and Home Medications Allergies Coded Allergies: Penicillins (Verified Allergy, Unknown, 11/19/16) Home Medications Amiodarone HCl 200 Mg Tablet, 200 MG PO BID Take 2 tablet twice a day for one week then Take one tablet twice a day Prescribed by: ROMINA TRUJILLO on 09/30/19905 Apixaban 5 Mg Tablet, 5 MG PO BID, (Reported) RECIEVED SAMPLES ON 08-09-2019 #60/30DS Carboxymethylcellulos/Glycerin 10 Ml Drops, 2 DROPS OU TID PRN for DRY EYES, (Reported) Clindamycin HCl 300 Mg Capsule, 300 MG PO TID Prescribed by: ROMINA TRUJILLO on 09/30/19905 Cyanocobalamin (Vitamin B-12) 1,000 Mcg/1 Ml Kit, 1,000 MCG IJ MONTHLY, (Reported) Ibuprofen 200 Mg Capsule, 600 MG PO Q8H PRN for PAIN-MILD (1-4), (Reported) Lisinopril 40 Mg Tablet, 40 MG PO DAILY, (Reported) Metoprolol Succinate 25 Mg Tab.er.24h, 25 MG PO DAILY Prescribed by: ROMINA TRUJILLO on 09/30/19 0906 Lexa 3 Polyunsat Fatty Acids 1,000 Mg Cap, 3,000 MG PO HS, (Reported) Patient Home Medication List Home Medication List Reviewed: Yes Review of Systems Review of Systems Constitutional: no symptoms reported; No chills, No diaphoresis, No dizziness, No malaise, No weakness EENTM: No Symptoms Reported Respiratory: No Symptoms Reported; Denies Shortness of Air Cardiovascular: See HPI; Denies Chest Pain, Denies Edema; Irregular Heart Rate; Denies Lightheadedness; Palpitations; Denies Syncope Gastrointestinal: No Symptoms Reported Genitourinary: No Symptoms Reported Musculoskeletal: no symptoms reported Skin: no symptoms reported Psychiatric/Neurological: No Symptoms Reported Endocrine: No Symptoms Reported Hematologic/Lymphatic: No Symptoms Reported Past Emgujfi-Svknim-Pzjrpn Hx Past Med/Social Hx: Reviewed and Corrections made Patient Social History Alcohol Use: Past History Number of Drinks Today: AA Alcohol Beverage of Choice: Beer Recreational Drug Use: No Smoking Status: Never a Smoker Recent Foreign Travel: No Contact w/Someone Who Travel: No Recent Infectious Disease Expo: No Recent Hopitalizations: No Immunizations Up To Date Tetanus Booster (TDap): Unknown PED Vaccines UTD: Yes Date of Pneumonia Vaccine: May 06, 2016 Past Medical History Surgeries: Yes (SEE BELOW) Defibrillator, Eye Surgery, Gallbladder, Joint Replacement, Pacemaker Respiratory: No Cardiac: Yes (WIDE COMPLEX TACHYCARDIA; PACEMAKER/DEFIBRILLATOR 09/2019;CARDIOVERSIONS) Hypertension, Syncope (DUE TO WIDE COMPLEX TACHYCARDIA) Neurological: No Reproductive Disorders: No Sexually Transmitted Disease: No HIV/AIDS: No Genitourinary: No Gastrointestinal: Yes (OPEN CHOLECYSTECTOMY) Gastroesophageal Reflux, Gall Bladder Disease Musculoskeletal: Yes (BILAT ROTATOR CUFF; BILAT TKR) Arthritis Endocrine: No HEENT: Yes (BILAT CATARACT SURGERY) Cataract Cancer: No Psychosocial: No Integumentary: No Blood Disorders: No Family Medical History No Pertinent Family Hx PSH: -BILATERAL CATARACT SURGERY -BILATERAL ROTATOR CUFF SURGERY -BILATERAL TOTAL KNEE REPLACEMENTS -OPEN CHOLECYSTECTOMY 1969--LARGE MIDLINE SCAR -PACEMAKER/DEFIBRILLATOR 09/2019 -CARDIOVERSIONS FOR WIDE COMPLEX TACHYCARDIA Physical Exam Vital Signs Vital Signs - First Documented 11/22/19 20:08 Pulse 131 Resp 22 B/P (MAP) 104/93 (97) Pulse Ox 98 O2 Delivery Room Air Capillary Refill : Less Than 3 Seconds Height, Weight, BMI Height: 5'10.00" Weight: 190lbs. 0.0oz. 86.693932lh; 27.00 BMI Method: General Appearance: No Apparent Distress, WD/WN; No Anxious; Other (PT CALM, VERY PLEASANT AND TALKATIVE, HARD OF HEARING) Neck: Normal Inspection; No JVD Respiratory: Normal Breath Sounds, No Accessory Muscle Use, No Respiratory Distress Cardiovascular: No JVD, No Murmur, Normal Peripheral Pulses, Tachycardia Gastrointestinal: Non Tender, Soft Extremity: Normal Capillary Refill, Normal Inspection, Normal Range of Motion, Non Tender, No Calf Tenderness, No Pedal Edema Neurologic/Psychiatric: Alert, Oriented x3, No Motor/Sensory Deficits, Normal Mood/Affect, qc manager II-XII Norm as Tested Skin: Normal Color (VERY GAYTAN), Warm/Dry Procedures/Interventions Patient Education: Explained Benefits, Explained Risks, Pt. Ack. Understanding Agreement on procedure with pt: Yes Breath Sounds per Auscultation: Clear Heart Sounds per Auscultation: Regular (TACHYCARDIA) Airway Exam: Mouth opens >2 fingers Sedation Adminstration Time: 1542 SYNCHRONIZED CARDIOVERSION AT 120 J--VERY BRIEF CONVERSION, THEN QUICKLY BACK TO WIDE COMPLEX TACHYCARDIA SECOND ATTEMPT AT 150 J WITH SUCCESSFUL CONVERSION TO 100% PACED RHYTHM Progress/Results/Core Measures Results/Orders Lab Results Laboratory Tests Test 11/22/19 20:19 Range/Units White Blood Count 7.8 4.3-11.0 10^3/uL Red Blood Count 4.81 4.35-5.85 10^6/uL Hemoglobin 13.8 13.3-17.7 G/DL Hematocrit 41 40-54 % Mean Corpuscular Volume 85 80-99 FL Mean Corpuscular Hemoglobin 29 25-34 PG Mean Corpuscular Hemoglobin Concent 34 32-36 G/DL Red Cell Distribution Width 15.6 H 10.0-14.5 % Platelet Count 244 130-400 10^3/uL Mean Platelet Volume 9.7 7.4-10.4 FL Neutrophils (%) (Auto) 73 42-75 % Lymphocytes (%) (Auto) 20 12-44 % Monocytes (%) (Auto) 7 0-12 % Eosinophils (%) (Auto) 0 0-10 % Basophils (%) (Auto) 0 0-10 % Neutrophils # (Auto) 5.7 1.8-7.8 X 10^3 Lymphocytes # (Auto) 1.6 1.0-4.0 X 10^3 Monocytes # (Auto) 0.5 0.0-1.0 X 10^3 Eosinophils # (Auto) 0.0 0.0-0.3 10^3/uL Basophils # (Auto) 0.0 0.0-0.1 10^3/uL Prothrombin Time 18.8 H 12.2-14.7 SEC INR Comment 1.5 H 0.8-1.4 Activated Partial Thromboplast Time 36 H 24-35 SEC Magnesium Level 2.8 H 1.6-2.4 MG/DL Total Creatine Kinase 129 30-200 U/L Myoglobin 146.6 H 10.0-92.0 NG/ML Troponin I 0.041 H <0.028 NG/ML B-Type Natriuretic Peptide 1213.9 H <100.0 PG/ML My Orders Orders - JOLANTA ALVARADO DO Ed Iv/Invasive Line Start (11/22/19 20:18) Ekg Tracing (11/22/19 20:18) O2 (11/22/19 20:18) Monitor-Rhythm Ecg Trace Only (11/22/19 20:18) BNP (11/22/19 20:18) Cbc With Automated Diff (11/22/19 20:18) Creatine Kinase (11/22/19 20:18) Magnesium (11/22/19 20:18) Protime With Inr (11/22/19 20:18) Partial Thromboplastin Time (11/22/19 20:18) Myoglobin Serum (11/22/19 20:18) Troponin I (11/22/19 20:18) Chest 1 View, Ap/Pa Only (11/22/19 20:18) Ed Iv/Invasive Line Start (11/22/19 20:18) Ns Iv 1000 Ml (Sodium Chloride 0.9%) (11/22/19 20:18) Ns Iv 1000 Ml (Sodium Chloride 0.9%) (11/22/19 20:16) Fentanyl Injection (Sublimaze Injection (11/22/19 20:20) Propofol Drip (Icu) (Diprivan Drip (Icu) (11/22/19 20:20) Naloxone Injection (Narcan Injection) (11/22/19 20:29) Medications Given in ED Current Medications Medications Dose Ordered Sig/Billy Route Start Time Stop Time Status Last Admin Dose Admin Fentanyl Citrate 100 mcg STK-MED ONCE .ROUTE 11/22/19 20:20 11/22/19 20:24 DC 11/22/19 20:25 25 MCG Naloxone HCl 0.4 mg STK-MED ONCE .ROUTE 11/22/19 20:29 11/22/19 20:33 DC 11/22/19 20:33 0.4 MG Vital Signs/I&O 11/22/19 11/22/19 11/22/19 20:08 20:30 20:40 Pulse 131 63 Resp 22 B/P (MAP) 104/93 (97) Pulse Ox 98 O2 Delivery Room Air Nasal Cannula Blood Pressure Mean: 97 Progress Progress Note : Progress Note EE NURSING NOTES FOR DETAILS OF CARDIOVERSION/CONSCIOUS SEDATION Initial ECG Impression Date: Nov 22, 2019 Initial ECG Impression Time: 20:25 Initial ECG Rate: 139 Comment WIDE COMPLEX TACHYCARDIA EKG : EKG Time: 20:36 Rate: 78 Comment 100% ATRIAL PACED RHYTHM Diagnostic Imaging Comments CXR--PER RADIOLOGIST REPORT AT 2134 IMPRESSION: 1. Cardiomegaly with pulmonary vascularity at the upper limits of normal. 2. No overt pulmonary edema or other adverse change is seen. Reviewed: Reviewed by Me Critical Care Note Critical Care Total Time (minutes) 30 Departure Communication (Admissions) 2038/2039--PAGED/SPOKE WITH DR. DALEY. ACCEPTS PT FOR ADMIT. ORDERS FOR AMIODARONE DRIP NOTED. Impression Primary Impression: RECURRENT SUSTAINED WIDE COMPLEX TACHYCARDIA Additional Impression: Mild congestive heart failure Disposition: ADMITTED INPATIENT Condition: Improved Admissions Decision to Admit Reason: Admit from ER (General) Decision to Admit/Date: Nov 22, 2019 Time/Decision to Admit Time: 20:40 Departure-Patient Inst. Referrals: CAROLANN ROMAN DO (PCP/Family) Primary Care Physician Patient Instructions: Moderate Sedation in Adults (DC), Moderate Sedation in Children (DC) JOLANTA ALVARADO DO Nov 22, 2019 21:37
[2019-11-22] MEDS ORDERED: FUROSEMIDE 40 MG/4 ML INJ (LASIX) IVP ONE (21:45)
[2019-11-22] MEDS ORDERED: 1/2 NS IV SOLUTION 1,000 ML IV ONE (22:09)
[2019-11-22 22:22] VITALS: BP 108/86
[2019-11-22 22:30] VITALS: BP 106/86
[2019-11-22 22:45] VITALS: BP 107/99
[2019-11-22] MEDS ORDERED: AMIODARONE 450 MG/250 ML D5W EXCEL IV SCH ×2 (22:45)
[2019-11-22] MEDS ORDERED: 1/2 NS IV SOLUTION 1,000 ML IV SCH (22:45)
[2019-11-22 23:00] VITALS: BP 123/92
[2019-11-23] VITALS (32 sets, daily range): BP systolic 84–146; BP diastolic 67–104
--- OUTSIDE RECORDS SUMMARY | 2019-11-23 00:07 | XMS REPORT | Continuity of Care Document ---
Author Organization Unknown Address Unknown Phone Unavailable Allergies Active Description Code Type Severity Reaction Onset Reported/Identified Relationship to Patient Clinical Status Yes PENICILLIN PENICILLIN Unknown N/A 03/21/2014 Yes Penicillins [id number] Drug Aller gy Unknown N/A 11/19/2016 Medications There is no data. Problems Date Dx Coded Attending Type Code Diagnosis Diagnosed By 03/20/2014 KIRAN GANDHI MD Ot V72. 84 03/20/2014 KIRAN GANDHI MD, Ot V72. 84 03/21/2014 KIRAN GANDHI MD, Ot V72. 84 03/21/2014 KIRAN GANDHI MD Ot 211. 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 84 12/12/2014 CAROLANN ROMAN DO Ot 786.07 12/12/2014 CAROLANN ROMAN DO Ot 786.2 12/22/2014 CAROLANN ROMAN DO Ot 786.07 12/22/2014 CAROLANN ROMAN DO Ot 786.2 01/02/2015 KIRAN GANDHI MD, Ot V72. 84 01/02/2015 CAROLANN ROMAN DO Ot 786.07 01/02/2015 ROMANCAROLANN SCHMIDT DO Ot 786.2 01/04/2015 ROMAN CAROLANN HERNÁNDEZ Ot 786.07 01/04/2015 ROMAN CAROLANN HERNÁNDEZ Ot 786.2 01/09/2015 ROMANCAROLANN SCHMIDT DO Ot 242.90 01/24/2015 ROMANCAROLANN LEVY DO Ot 242.90 01/31/2015 ROMANCAROLANN SCHMIDT DO [...] EXAMIN 11/28/2016 HIRAM DELONG, KIRAN Marcus Ot V72. 84 EXAM PRE-OPERATIVE NOS 11/28/2016 ROMANCAROLANN LEVY DO Ot 786.07 WHEEZING 11/28/2016 ROMAN DOCAROLANN Ot 786.2 COUGH 11/28/2016 JESSIE DOCAROLANN Ot 242.90 THYROTOX NOS NO CRISIS 11/28/2016 ROMANCAROLANN LEVY DO Ot 242.90 THYROTOX NOS NO CRISIS [...] OTHER INJURY, 12/01/2016 CHRIS BLOOD MD Ot I1 0 ESSENTIAL (PRIMARY) HYPERTENSION 12/01/2016 CHRIS BLOOD MD Ot K21.9 GASTRO-ESOPHAGEAL REFLUX DISEASE WITHOUT 12/01/2016 CHRIS BLOOD MD Ot K22.2 ESOPHAGEAL OBSTRUCTION 12/02/2016 CHRIS BLOOD MD Ot I1 0 ESSENTIAL (PRIMARY) HYPERTENSION 12/02/2016 CHRIS BLOOD MD Ot K21.9 GASTRO-ESOPHAGEAL REFLUX DISEASE WITHOUT 12/02/2016 CHRIS BLOOD MD Ot K22.2 ESOPHAGEAL OBSTRUCTION 01/16/2017 CHRIS BLOOD MD Ot K22.2 ESOPHAGEAL OBSTRUCTION 01/16/2017 CHRIS BLOOD MD Ot T18.128A FOOD IN ESOPHAGUS CAUSING OTHER INJURY, 01/21/2017 CHRIS BLOOD MD Ot K22.2 ESOPHAGEAL OBSTRUCTION 01/21/2017 CHRIS BLOOD MD Ot T18.128A FOOD IN ESOPHAGUS CAUSING OTHER INJURY, 10/07/2017 HIRAM DELONG, KIRAN Marcus Ot V72. 84 EXAM PRE-OPERATIVE NOS 10/07/2017 CAROLANN ROMAN DO Ot 786.07 WHEEZING 10/07/2017 CAROLANN ROMAN DO Ot 786.2 COUGH 10/07/2017 CAROLANN ROMAN DO Ot 242.90 THYROTOX NOS NO CRISIS 10/07/2017 ROMANCAROLANN LEVY DO Ot 242.90 THYROTOX NOS NO CRISIS 10/07/2017 CHRIS BLOOD MD Ot K22.2 ESOPHAGEAL OBSTRUCTION 10/07/2017 CHRIS BLOOD MD Ot T18.128A FOOD IN ESOPHAGUS CAUSING OTHER INJURY, 10/07/2017 CHRIS BLOOD MD Ot K22.2 ESOPHAGEAL OBSTRUCTION 10/07/2017 CHRIS BLOOD MD Ot Z01.818 ENCOUNTER FOR OTHER PREPROCEDURAL EXAMIN 10/07/2017 NEELIMA PACHECO MD Ot Z01.818 ENCOUNTER FOR OTHER PREPROCEDURAL EXAMIN 10/08/2017 NEELIMA PACHECO MD Ot Z01.818 ENCOUNTER FOR OTHER PREPROCEDURAL EXAMIN 10/09/2017 HIRAM DELONG, KIRAN Marcus Ot V72. 84 EXAM PRE-OPERATIVE NOS 10/09/2017 CAROLANN ROMAN DO Ot 786.07 WHEEZING 10/09/2017 CAROLANN ROMAN DO Ot 786.2 COUGH 10/09/2017 CAROLANN ROMAN DO Ot 242.90 THYROTOX NOS NO CRISIS 10/09/2017 CAROLANN ROMAN DO Ot 242.90 THYROTOX NOS NO CRISIS 10/09/2017 CAITIE DELONG, CHRIS Macias Ot K22.2 ESOPHAGEAL OBSTRUCTION 10/09/2017 CHRIS BLOOD MD Ot T18.128A FOOD IN ESOPHAGUS CAUSING OTHER INJURY, 10/09/2017 CHRIS BLOOD MD Ot K22.2 ESOPHAGEAL OBSTRUCTION 10/09/2017 CHRIS BLOOD MD Ot Z01.818 ENCOUNTER FOR OTHER PREPROCEDURAL EXAMIN 10/09/2017 NEELIMA PACHECO MD Ot H26 .9 UNSPECIFIED CATARACT 10/09/2017 NEELIMA PACHECO MD Ot I10 ESSENTIAL (PRIMARY) HYPERTENSION 10/09/2017 NEELIMA PACHECO MD Ot 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 10/09/2017 NEELIMA PACHECO MD Ot Z79.899 OTHER CARPET INSTALLATION SPECIALIST (CURRENT) DRUG THERAPY 10/13/2017 NEELIMA PACHECO MD Ot H26 .9 UNSPECIFIED CATARACT 10/13/2017 NEELIMA PACHECO MD Ot I10 ESSENTIAL (PRIMARY) HYPERTENSION 10/13/2017 NEELIMA PACHECO MD Ot Z79.82 CORRECTION (CURRENT) USE OF ASPIRIN 10/13/2017 NEELIMA PACHECO MD Ot Z79.899 OTHER CARPET INSTALLATION SPECIALIST (CURRENT) DRUG THERAPY 10/13/2017 NEELIMA PACHECO MD Ot H26 .9 UNSPECIFIED CATARACT 10/13/2017 NEELIMA PACHECO MD Ot I10 ESSENTIAL (PRIMARY) HYPERTENSION 10/13/2017 NEELIMA PACHECO MD Ot 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 84 EXAM PRE-OPERATIVE NOS 11/06/2017 CAROLANN ROMAN DO Ot 786.07 WHEEZING 11/06/2017 CAROLANN ROMAN DO Ot 786.2 COUGH 11/06/2017 CAROLANN ROMAN DO Ot 242.90 THYROTOX NOS NO CRISIS 11/06/2017 CAROLANN ROMAN DO Ot 242.90 THYROTOX NOS NO CRISIS 11/06/2017 CHRIS BLOOD MD Ot K22.2 ESOPHAGEAL OBSTRUCTION 11/06/2017 CHRIS BLOOD MD Ot T18.128A FOOD IN ESOPHAGUS CAUSING OTHER INJURY, 11/06/2017 CHRIS BLOOD MD Ot K22.2 ESOPHAGEAL OBSTRUCTION 11/06/2017 CHRIS BLOOD MD Ot Z01.818 ENCOUNTER FOR OTHER PREPROCEDURAL EXAMIN 11/06/2017 NEELIMA PACHECO MD Ot H26 .9 UNSPECIFIED CATARACT 11/06/2017 NEELIMA PACHECO MD Ot I10 ESSENTIAL (PRIMARY) HYPERTENSION 11/06/2017 NEELIMA PACHECO MD Ot I48.91 UNSPECIFIED ATRIAL FIBRILLATION 11/06/2017 NEELIMA PACHECO MD Ot Z79.82 CORRECTION (CURRENT) USE OF ASPIRIN 11/06/2017 NEELIMA PACHECO MD Ot Z79.899 OTHER CARPET INSTALLATION SPECIALIST (CURRENT) DRUG THERAPY 11/10/2017 NEELIMA PACHECO MD Ot H26 .9 UNSPECIFIED CATARACT 11/10/2017 NEELIMA PACHECO MD Ot I10 ESSENTIAL (PRIMARY) HYPERTENSION 11/10/2017 NEELIMA PACHECO MD Ot I48.91 UNSPECIFIED ATRIAL FIBRILLATION 11/10/2017 NEELIMA PACHECO MD Ot 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 1 PERSISTENT ATRIAL FIBRILLATION 12/31/2017 ROMINA TRUJILLO MD Ot I49. 3 VENTRICULAR PREMATURE DEPOLARIZATION 01/14/2018 Ot I48.91 UNS PECIFIED ATRIAL FIBRILLATION 01/15/2018 CAROLANN ROMAN DO Ot I48.91 UNSPECIFIED ATRIAL FIBRILLATION 01/20/2018 Ot I48.91 UNS PECIFIED ATRIAL FIBRILLATION 01/20/2018 CAROLANN ROMAN DO Ot I48.91 UNSPECIFIED ATRIAL FIBRILLATION 02/12/2018 GIL SCHULTZ Ot G47.33 OBSTRUCTIVE SLEEP APNEA (ADULT) (PEDIATR 02/18/2018 GIL SCHULTZ Ot G47.10 HYPERSOMNIA, UNSPECIFIED 02/18/2018 ANTOINE, GIL J USED CAR RENOVATOR Ot G47.31 PRIMARY CENTRAL SLEEP APNEA 02/18/2018 ANTOINE, GIL J USED CAR RENOVATOR Ot G47.33 OBSTRUCTIVE SLEEP APNEA (ADULT) (PEDIATR 02/18/2018 ANTOINE, GIL J USED CAR RENOVATOR Ot G47.36 SLEEP RELATED HYPOVENTILATION IN CONDITI 02/21/2018 ANTOINE, GIL J USED CAR RENOVATOR Ot G47.10 HYPERSOMNIA, UNSPECIFIED 02/21/2018 ANTOINE, GIL J USED CAR RENOVATOR Ot G47.31 PRIMARY CENTRAL SLEEP APNEA 02/21/2018 ANTOINE, GIL J USED CAR RENOVATOR Ot G47.33 OBSTRUCTIVE SLEEP APNEA (ADULT) (PEDIATR 02/21/2018 ANTOINE, GIL J USED CAR RENOVATOR Ot G47.36 SLEEP RELATED HYPOVENTILATION IN CONDITI 06/29/2018 ARNOLDO RAMSES, KADE J Ot M25. 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 33 OBSTRUCTIVE SLEEP APNEA (ADULT) (PEDIATR 09/30/2019 ROMINA TRUJILLO MD Ot I10 ESSENTIAL (PRIMARY) HYPERTENSION 09/30/2019 ROMINA TRUJILLO MD Ot I25. 10 ATHSCL HEART DISEASE OF [place] CORONARY 09/30/2019 ROMINA TRUJILLO MD Ot I25. 41 CORONARY ARTERY ANEURYSM 09/30/2019 ROMINA TRUJILLO MD, Ot I42. 9 CARDIOMYOPATHY, UNSPECIFIED 09/30/2019 ROMINA TRUJILLO MD, Ot I47. 2 VENTRICULAR TACHYCARDIA 09/30/2019 ROMINA TRUJILLO MD, Ot I48. 19 OTHER PERSISTENT ATRIAL FIBRILLATION 09/30/2019 ROMINA TRUJILLO MD, Ot I49. 3 VENTRICULAR PREMATURE DEPOLARIZATION 09/30/2019 ROMINA TRUJILLO MD, Ot K21. 9 GASTRO-ESOPHAGEAL REFLUX DISEASE WITHOUT 09/30/2019 ROMINA TRUJILLO MD, Ot R07. 81 PLEURODYNIA 09/30/2019 ROMINA TRUJILLO MD, Ot S00.83XA CONTUSION OF OTHER PART OF HEAD, INITIAL 09/30/2019 ROMINA TRUJILLO MD, Ot W19.XXXA UNSPECIFIED FALL, INITIAL ENCOUNTER 09/30/2019 ROMINA TRUJILLO MD, Ot Y92. 39 [address] [facility] 09/30/2019 ROMINA TRUJILLO MD, Ot Y93. 53 ACTIVITY, GOLF 09/30/2019 ROMINA TRUJILLO MD, Ot Z79. 01 CORRECTION (CURRENT) USE OF ANTICOAGULANT 09/30/2019 ROMINA TRUJILLO MD, Ot Z96.659 PRESENCE OF UNSPECIFIED ARTIFICIAL KNEE 10/26/2019 ROMAN CAROLANN Ot M19.011 PRIMARY OSTEOARTHRITIS, RIGHT SHOULDER 10/26/2019 ROMAN CAROLANN HERNÁNDEZ Ot R07.89 OTHER CHEST PAIN 11/18/2019 ROMANCAROLANN SCHMIDT DO, Ot M19.011 PRIMARY OSTEOARTHRITIS, RIGHT SHOULDER 11/18/2019 [facility] R07.89 OTHER CHEST PAIN Procedures Code Description Performed By Per formed On [id number] ID ASURE OF CARDIAC SAMPL PRESSURE, L H 09/27/2019 [id number] RE STORATION OF CARDIAC RHYTHM, SINGLE 09/27/2019 [id number] FL UOROSCOPY OF MULT COR ART USING L OSM 09/27/2019 [id number] FL UOROSCOPY OF LEFT HEART USING LOW OSMO 09/27/2019 [id number] IN SERTION OF DEFIBRILLATOR LEAD INTO R A 09/29/2019 [id number] IN SERTION OF DEFIB LEAD INTO R VENTRICLE 09/29/2019 [id number] IN SERT OF DEFIB GEN INTO CHEST SUBCU/FAS 09/29/2019 Results Test Result Range Complete blood count (CBC) with automate d white blood cell (WBC) differential - 09/27/19 14:39 Blood leukocytes automated count (number/volume) 8.4 10*3/uL 4.3-11.0 Blood erythrocytes automated count (number/volume) 4.81 10*6/uL 4.35-5.85 Venous blood hemoglobin measurement (mass/volume) 13.5 g/dL 13.3-17.7 Blood hematocrit (volume fraction) 40 % 40-54 Automated erythrocyte mean corpuscular volume 83 [ foz_us] 80-99 Automated erythrocyte mean corpuscular h emoglobin (mass per erythrocyte) 28 pg 25-34 Automated erythrocyte mean corpuscular h emoglobin concentration measurement (mass/volume) 34 g/dL 32-36 Automated erythrocyte distribution width ratio 15. 1 % 10.0- 14.5 Automated blood platelet count (count/volume) 276 10*3/uL 130-400 Automated blood platelet mean volume measurement 9.5 [foz_us] 7.4-10.4 Automated blood neutrophils/100 leukocytes 66 % 42-75 Automated blood lymphocytes/100 leukocytes 24 % 12-44 Blood monocytes/100 leukocytes 8 % 0-12 Automated blood eosinophils/100 leukocytes 1 % 0-10 Automated blood basophils/100 leukocytes 1 % 0-10 Blood neutrophils automated count (number/volume) 5.5 10*3 1.8-7.8 Blood lymphocytes automated count (number/volume) 2.0 10*3 1.0-4.0 Blood monocytes automated count (number/volume) 0. 7 10*3 0.0-1.0 Automated eosinophil count 0.1 10*3/uL 0 .0-0.3 Automated blood basophil count (count/volume) 0.0 10*3/uL 0.0-0.1 Comprehensive metabolic panel - 09/27/19 14:39 Serum or plasma sodium measurement (moles/volume) 138 mmol/L 135-145 Serum or plasma potassium measurement (moles/volume) 3.7 mmol/L 3.6-5.0 Serum or plasma chloride measurement (moles/volume) 104 mmol/L 98-107 Carbon dioxide 23 mmol/L 21-32 Serum or plasma anion gap determination (moles/volume) 11 mmol/L 5-14 Serum or plasma urea nitrogen measurement (mass/volume ) 19 mg/dL 7-18 Serum or plasma creatinine measurement (mass/volume) 1.68 mg/dL 0.60-1.30 Serum or plasma urea nitrogen/creatinine mass ratio 11 NRG Serum or plasma creatinine measurement w ith calculation of estimated glomerular filtration rate 40 NRG Serum or plasma glucose measurement (mass/volume) 122 mg/dL 70-105 Serum or plasma calcium measurement (mass/volume) 9.3 mg/dL 8.5-10.1 Serum or plasma total bilirubin measurement (mass/volu me) 1.3 mg/dL 0.1-1.0 Serum or plasma alkaline phosphatase coral surement (enzymatic activity/volume) 62 U/L 40-136 Serum or plasma aspartate aminotransfera se measurement (enzymatic activity/volume) 35 U/L 5-34 Serum or plasma alanine aminotransferase measurement (enzymatic activity/volume) 27 U/L 0-55 Serum or plasma protein measurement (mass/volume) 8.1 g/dL 6.4-8.2 Serum or plasma albumin measurement (mass/volume) 4.1 g/dL 3.2-4.5 CALCIUM CORRECTED 9.2 mg/dL 8.5-10.1 Magnesium - 09/27/19 14:39 Magnesium 1.8 mg/dL 1.6-2.4 Myoglobin, serum - 09/27/19 14:39 Myoglobin, serum 253.5 ng/mL 10.0-92.0 Serum or plasma troponin i.cardiac measu rement (mass/volume) - 09/27/19 14:39 Serum or plasma troponin i.cardiac measurement (mass/v olume) < ng/mL <0.028 PT panel in platelet poor plasma by coag ulation assay - 09/27/19 14:39 Prothrombin time (PT) in platelet poor plasma by coagu lation assay 16.1 s 12.2-14.7 INR in platelet poor plasma or blood by coagulation as say 1.2 0.8-1.4 Activated partial thromboplastin time (a PTT) in platelet poor plasma bycoagulation assay - 09/27/19 14:39 Activated partial thromboplastin time (a PTT) in platelet poor plasma bycoagulation assay 35 s 24-35 Automated blood complete blood count (he mogram) panel - 09/28/19 02:22 Blood leukocytes automated count (number/volume) 6.5 10*3/uL 4.3-11.0 Blood erythrocytes automated count (number/volume) 4.33 10*6/uL 4.35-5.85 Venous blood hemoglobin measurement (mass/volume) 12.4 g/dL 13.3-17.7 Blood hematocrit (volume fraction) 36 % 40-54 Automated erythrocyte mean corpuscular volume 82 [ foz_us] 80-99 Automated erythrocyte mean corpuscular h emoglobin (mass per erythrocyte) 29 pg 25-34 Automated erythrocyte mean corpuscular h emoglobin concentration measurement (mass/volume) 35 g/dL 32-36 Automated erythrocyte distribution width ratio 14. 9 % 10.0- 14.5 Automated blood platelet count (count/volume) 199 10*3/uL 130-400 Automated blood platelet mean volume measurement 9.7 [foz_us] 7.4-10.4 Whole blood basic metabolic panel - 07/14 02:22 Serum or plasma sodium measurement (moles/volume) 138 mmol/L 135-145 Serum or plasma potassium measurement (moles/volume) 3.8 mmol/L 3.6-5.0 Serum or plasma chloride measurement (moles/volume) 108 mmol/L 98-107 Carbon dioxide 20 mmol/L 21-32 Serum or plasma anion gap determination (moles/volume) 10 mmol/L 5-14 Serum or plasma urea nitrogen measurement (mass/volume ) 17 mg/dL 7-18 Serum or plasma creatinine measurement (mass/volume) 1.26 mg/dL 0.60-1.30 Serum or plasma urea nitrogen/creatinine mass ratio 13 NRG Serum or plasma creatinine measurement w ith calculation of estimated glomerular filtration rate 55 NRG Serum or plasma glucose measurement (mass/volume) 105 mg/dL 70-105 Serum or plasma calcium measurement (mass/volume) 8.4 mg/dL 8.5-10.1 Magnesium - 09/28/19 02:22 Magnesium 1.8 mg/dL 1.6-2.4 Lipid 1996 panel - 09/28/19 02:22 Serum or plasma triglyceride measurement (mass/volume) 69 mg/dL <150 Serum or plasma cholesterol measurement (mass/volume) 140 mg/dL < 200 Serum or plasma cholesterol in HDL measurement (mass/v olume) 33 mg/dL 40-60 Cholesterol in LDL [mass/volume] in serum or plasma by direct assay 105 mg/dL 1-129 Serum or plasma cholesterol in VLDL measurement (mass/ volume) 14 mg/dL 5-40 Automated blood complete blood count (he mogram) panel - 09/30/19 06:14 Blood leukocytes automated count (number/volume) 7.5 10*3/uL 4.3-11.0 Blood erythrocytes automated count (number/volume) 4.35 10*6/uL 4.35-5.85 Venous blood hemoglobin measurement (mass/volume) 12.4 g/dL 13.3-17.7 Blood hematocrit (volume fraction) 36 % 40-54 Automated erythrocyte mean corpuscular volume 83 [ foz_us] 80-99 Automated erythrocyte mean corpuscular h emoglobin (mass per erythrocyte) 29 pg 25-34 Automated erythrocyte mean corpuscular h emoglobin concentration measurement (mass/volume) 34 g/dL 32-36 Automated erythrocyte distribution width ratio 14. 8 % 10.0- 14.5 Automated blood platelet count (count/volume) 214 10*3/uL 130-400 Automated blood platelet mean volume measurement 9.9 [foz_us] 7.4-10.4 Comprehensive metabolic panel - 09/30/19 06:14 Serum or plasma sodium measurement (moles/volume) 136 mmol/L 135-145 Serum or plasma potassium measurement (moles/volume) 3.7 mmol/L 3.6-5.0 Serum or plasma chloride measurement (moles/volume) 107 mmol/L 98-107 Carbon dioxide 20 mmol/L 21-32 Serum or plasma anion gap determination (moles/volume) 9 mmol/L 5-14 Serum or plasma urea nitrogen measurement (mass/volume ) 16 mg/dL 7-18 Serum or plasma creatinine measurement (mass/volume) 1.12 mg/dL 0.60-1.30 Serum or plasma urea nitrogen/creatinine mass ratio 14 NRG Serum or plasma creatinine measurement w ith calculation of estimated glomerular filtration rate > NRG Serum or plasma glucose measurement (mass/volume) 98 mg/dL 70-105 Serum or plasma calcium measurement (mass/volume) 8.8 mg/dL 8.5-10.1 Serum or plasma total bilirubin measurement (mass/volu me) 1.8 mg/dL 0.1-1.0 Serum or plasma alkaline phosphatase ocral surement (enzymatic activity/volume) 57 U/L 40-136 Serum or plasma aspartate aminotransfera se measurement (enzymatic activity/volume) 28 U/L 5-34 Serum or plasma alanine aminotransferase measurement (enzymatic activity/volume) 25 U/L 0-55 Serum or plasma protein measurement (mass/volume) 7.4 g/dL 6.4-8.2 Serum or plasma albumin measurement (mass/volume) 3.5 g/dL 3.2-4.5 CALCIUM CORRECTED 9.2 mg/dL 8.5-10.1 Complete blood count (CBC) with automate d white blood cell (WBC) differential - 11/21/19 11:58 Blood leukocytes automated count (number/volume) 7.6 10*3/uL 4.3-11.0 Blood erythrocytes automated count (number/volume) 4.91 10*6/uL 4.35-5.85 Venous blood hemoglobin measurement (mass/volume) 13.9 g/dL 13.3-17.7 Blood hematocrit (volume fraction) 41 % 40-54 Automated erythrocyte mean corpuscular volume 84 [ foz_us] 80-99 Automated erythrocyte mean corpuscular h emoglobin (mass per erythrocyte) 28 pg 25-34 Automated erythrocyte mean corpuscular h emoglobin concentration measurement (mass/volume) 34 g/dL 32-36 Automated erythrocyte distribution width ratio 15. 4 % 10.0- 14.5 Automated blood platelet count (count/volume) 260 10*3/uL 130-400 Automated blood platelet mean volume measurement 9.6 [foz_us] 7.4-10.4 Automated blood neutrophils/100 leukocytes 75 % 42-75 Automated blood lymphocytes/100 leukocytes 18 % 12-44 Blood monocytes/100 leukocytes 6 % 0-12 Automated blood eosinophils/100 leukocytes 0 % 0-10 Automated blood basophils/100 leukocytes 0 % 0-10 Blood neutrophils automated count (number/volume) 5.7 10*3 1.8-7.8 Blood lymphocytes automated count (number/volume) 1.4 10*3 1.0-4.0 Blood monocytes automated count (number/volume) 0. 5 10*3 0.0-1.0 Automated eosinophil count 0.0 10*3/uL 0 .0-0.3 Automated blood basophil count (count/volume) 0.0 10*3/uL 0.0-0.1 PT panel in platelet poor plasma by coag ulation assay - 11/21/19 11:58 Prothrombin time (PT) in platelet poor plasma by coagu lation assay 18.3 s 12.2-14.7 INR in platelet poor plasma or blood by coagulation as say 1.5 0.8-1.4 Activated partial thromboplastin time (a PTT) in platelet poor plasma bycoagulation assay - 11/21/19 11:58 Activated partial thromboplastin time (a PTT) in platelet poor plasma bycoagulation assay 37 s 24-35 Comprehensive metabolic panel - 11/21/19 11:58 Serum or plasma sodium measurement (moles/volume) 140 mmol/L 135-145 Serum or plasma potassium measurement (moles/volume) 4.1 mmol/L 3.6-5.0 Serum or plasma chloride measurement (moles/volume) 105 mmol/L 98-107 Carbon dioxide 23 mmol/L 21-32 Serum or plasma anion gap determination (moles/volume) 12 mmol/L 5-14 Serum or plasma urea nitrogen measurement (mass/volume ) 16 mg/dL 7-18 Serum or plasma creatinine measurement (mass/volume) 1.68 mg/dL 0.60-1.30 Serum or plasma urea nitrogen/creatinine mass ratio 10 NRG Serum or plasma creatinine measurement w ith calculation of estimated glomerular filtration rate 40 NRG Serum or plasma glucose measurement (mass/volume) 127 mg/dL 70-105 Serum or plasma calcium measurement (mass/volume) 9.5 mg/dL 8.5-10.1 Serum or plasma total bilirubin measurement (mass/volu me) 1.3 mg/dL 0.1-1.0 Serum or plasma alkaline phosphatase coral surement (enzymatic activity/volume) 75 U/L 40-136 Serum or plasma aspartate aminotransfera se measurement (enzymatic activity/volume) 39 U/L 5-34 Serum or plasma alanine aminotransferase measurement (enzymatic activity/volume) 32 U/L 0-55 Serum or plasma protein measurement (mass/volume) 8.2 g/dL 6.4-8.2 Serum or plasma albumin measurement (mass/volume) 4.1 g/dL 3.2-4.5 CALCIUM CORRECTED 9.4 mg/dL 8.5-10.1 Magnesium - 11/21/19 11:58 Magnesium 1.9 mg/dL 1.6-2.4 Myoglobin, serum - 11/21/19 11:58 Myoglobin, serum 139.0 ng/mL 10.0-92.0 Serum or plasma troponin i.cardiac measu rement (mass/volume) - 11/21/19 11:58 Serum or plasma troponin i.cardiac measurement (mass/v olume) < ng/mL <0.028 Serum or plasma lithium measurement (mol es/volume) - 11/21/19 11:58 BNP PT 735.1 pg/mL <100.0 Encounters ACCT No. Visit Date/Time Discharge Status Pt. Type Provider Facility Loc./Unit Complaint [id number] 11/21/2019 11:51:00 13:40:00 DIS Emergency JORDYN CARTER APRN [facility] ER ACCELERATED HEART RATE [id number] 10/24/2019 16:00:00 23:59:59 CLS Outpatient CAROLANN ROMAN DO [facility] RAD OTHER CHEST KARINA N [id number] 09/27/2019 16:39:00 11:40:00 DIS Inpatient ROMINA TRUJILLO MD [facility] CSD V-TACH [id number] 06/28/2018 11:29:00 23:59:59 CLS Outpatient KADE MCLAUGHLIN DC [facility] RAD CERVICAL SPINE PAIN IN [place]AN[place]'S [id number] 02/15/2018 20:45:00 06:20:00 DIS Outpatient GIL SCHULTZ USED CAR RENOVATOR [facility] SLEEP ABNORMAL SLEEP STUDY [id number] 01/18/2018 12:23:00 23:59:59 CLS Preadmit CAROLANN ROMAN DO [facility] SLEEP HUMBLE [id number] 12/31/2017 13:48:00 14:00:00 DIS Outpatient ROMINA TRUJILLO MD [facility] SLEEP OBSTRUCTIVE SLEEP APNEA [id number] 12/18/2017 06:46:00 018 23:59:59 CLS Outpatient CAROLANN ROMAN DO [facility] CARD A FIB [id number] 11/23/2017 07:35:00 018 23:59:59 CLS Outpatient CAROLANN ROMAN DO [facility] CARD ATRIAL FIBRILLA TION [id number] 11/06/2017 07:23:00 018 08:53:00 DIS Outpatient NEELIMA PACHECO MD [facility] CATARACT RIGHT EYE [id number] 11/04/2017 05:51:00 018 11:56:00 DIS Outpatient NEELIMA PACHECO MD [facility] PREOP CATARACT RIGHT EYE [id number] 10/09/2017 08:30:00 018 10:54:00 DIS Outpatient NEELIMA PACHECO MD [facility] CATARACT LEFT EYE [id number] 10/07/2017 13:10:00 018 13:19:00 DIS Outpatient NEELIMA PACHECO MD [facility] PREOP CATARACT LEFT EYE [id number] 12/01/2016 09:20:00 017 12:46:00 DIS Outpatient CHRIS BLOOD MD [facility] ENDO STRICTURE [id number] 11/25/2016 05:46:00 017 23:59:59 CLS Outpatient CHRIS BLOOD MD [facility] PREOP STRICTURE EGD [id number] 11/19/2016 12:27:00 017 23:59:59 CLS Outpatient CHRIS BLOOD MD [facility] ENDO ESOPHAGEAL STRICTURE [id number] 01/11/2015 13:56:00 015 23:59:59 CLS Outpatient CAROLANN ROMAN DO [facility] RAD HYPERTHYROID [id number] 01/02/2015 10:53:00 015 23:59:59 CLS Outpatient CAROLANN ROMAN DO [facility] CARD HYPERTHYROID [id number] 12/08/2014 14:01:00 015 23:59:59 CLS Outpatient CAROLANN ROMAN DO [facility] RAD COUGH,WHEEZING [id number] 03/21/2014 06:57:00 014 10:00:00 DIS Outpatient KIRAN GANDHI MD [facility] SDC SCREENING [id number] 03/16/2014 07:21:00 014 23:59:59 CLS Outpatient KIRAN GANDHI MD [facility] PREOP SCREENING [id number] 12/08/2017 12:40:00 Document Registration
[2019-11-23 03:26] LABS: BASOPHILS % (AUTO) 0 % (0-10); EOSINOPHILS % (AUTO) 0 % (0-10); HEMATOCRIT 40 % (40-54); HEMOGLOBIN 13.1 G/DL (13.3-17.7); LYMPHOCYTES # (AUTO) 1.3 X 10^3 (1.0-4.0); LYMPHOCYTES % (AUTO) 18 % (12-44); MEAN CORPUSCULAR HEMOGLOBIN 28 PG (25-34); MEAN CORPUSCULAR HGB CONC 33 G/DL (32-36); MEAN CORPUSCULAR VOLUME 85 FL (80-99); MEAN PLATELET VOLUME 10.2 FL (7.4-10.4); MONOCYTES # (AUTO) 0.7 X 10^3 (0.0-1.0); MONOCYTES % (AUTO) 9 % (0-12); NEUTROPHILS # (AUTO) 5.5 X 10^3 (1.8-7.8); NEUTROPHILS % (AUTO) 73 % (42-75); PLATELET COUNT 211 10^3/uL (130-400); RED CELL DISTRIBUTION WIDTH 15.6 % (10.0-14.5); WHITE BLOOD COUNT 7.5 10^3/uL (4.3-11.0)
[2019-11-23 03:30] LABS: ALBUMIN 3.8 GM/DL (3.2-4.5)
[2019-11-23 03:31] LABS: CALCIUM 8.9 MG/DL (8.5-10.1)
[2019-11-23 03:32] LABS: TOTAL PROTEIN 7.4 GM/DL (6.4-8.2)
[2019-11-23] MEDS: POTASSIUM CL 10MEQ/50ML IVPB 50 ML IV SCH (03:32)
[2019-11-23] MEDS: KCL 20 MEQ TAB (K-DUR) PO SCH (03:32)
[2019-11-23 03:34] LABS: BILIRUBIN,TOTAL 1.8 MG/DL (0.1-1.0)
[2019-11-23 03:36] LABS: CREATININE SERUM 1.95 MG/DL (0.60-1.30); PHOSPHORUS 3.8 MG/DL (2.3-4.7)
[2019-11-23 03:39] LABS: MAGNESIUM 1.9 MG/DL (1.6-2.4)
[2019-11-23] MEDS: MAGNESIUM 1 GM/100 ML IVPB 100 ML IV SCH (03:42)
--- NOTE | 2019-11-23 04:58 | Pulmonary Consultation ---
GERRY SAAVEDRA,MED STUDENT 11/23/19 0457: History of Present Illness History of Present Illness Date Seen by Provider: Nov 23, 2019 Time Seen by Provider: 04:30 Date of Admission History of Present Illness Pt is a 79yo M presented to [facility] ED on 11/21 c/o palpitations/tachycardia. He had a pacemaker/defibrillator placed in September. He was seen at [facility] on 11/20 for similar symptoms and did not respond to Cardizem, so cardioversion was performed and he was sent home. Pt. was seen 11/[address] Stephenson and was started on Toprol and increased dose of Amiodarone but continued to experience tachycardia, so was instructed to come to the ED. Allergies and Home Medications Allergies Coded Allergies: Penicillins (Verified Allergy, Unknown, 11/19/16) Home Medications Amiodarone HCl 200 Mg Tablet, 200 MG PO BID, (Reported) Amlodipine Besylate 5 Mg Tablet, 5 MG PO DAILY, (Reported) Apixaban 5 Mg Tablet, 5 MG PO BID, (Reported) Cyanocobalamin (Vitamin B-12) 1,000 Mcg/1 Ml Kit, 1,000 MCG IJ MONTHLY, (Reported) Ibuprofen 200 Mg Capsule, 600 MG PO Q8H PRN for PAIN-MILD (1-4), (Reported) [place] 3 Polyunsat Fatty Acids 1,000 Mg Cap, 3,000 MG PO HS, (Reported) Sennosides/Docusate Sodium 1 Each Tablet, 2 EACH PO Q48H, (Reported) Past Uucgnwt-Xypvtv-Qpfpxj Hx Past Med/Social Hx: Reviewed and Corrections made Patient Social History Alcohol Use: Past History Number of Drinks Today: AA Alcohol Beverage of Choice: Beer Recreational Drug Use: No Smoking Status: Never a Smoker Recent Foreign Travel: No Contact w/Someone Who Travel: No Recent Infectious Disease Expo: No Recent Hopitalizations: No Immunizations Up To Date Tetanus Booster (TDap): Unknown PED Vaccines UTD: Yes Date of Pneumonia Vaccine: May 06, 2016 Past Medical History Surgeries: Yes (SEE BELOW) Defibrillator, Eye Surgery, Gallbladder, Joint Replacement, Pacemaker Respiratory: No Cardiac: Yes (WIDE COMPLEX TACHYCARDIA; PACEMAKER/DEFIBRILLATOR 09/2019;CARDIOVERSIONS) Hypertension, Syncope (DUE TO WIDE COMPLEX TACHYCARDIA) Neurological: No Reproductive Disorders: No Sexually Transmitted Disease: No HIV/AIDS: No Genitourinary: No Gastrointestinal: Yes (OPEN CHOLECYSTECTOMY) Gastroesophageal Reflux, Gall Bladder Disease Musculoskeletal: Yes (BILAT ROTATOR CUFF; BILAT TKR) Arthritis Endocrine: No HEENT: Yes (BILAT CATARACT SURGERY) Cataract Cancer: No Psychosocial: No Integumentary: No Blood Disorders: No Family Medical History No Pertinent Family Hx PSH: -BILATERAL CATARACT SURGERY -BILATERAL ROTATOR CUFF SURGERY -BILATERAL TOTAL KNEE REPLACEMENTS -OPEN CHOLECYSTECTOMY 1969--LARGE MIDLINE SCAR -PACEMAKER/DEFIBRILLATOR 09/2019 -CARDIOVERSIONS FOR WIDE COMPLEX TACHYCARDIA Review of Systems Constitutional: No: Fever, Chills Eyes: No: Vision change ENT: No: Nose discharge, Nose congestion, Throat pain Respiratory: No: Cough, Shortness of breath, Wheezing Cardiovascular: Palpitations, Lt Headedness (mild); No: Chest Pain, Edema Gastrointestinal: Constipation; No: Nausea, Vomiting, Abdominal Pain Neurological: No: Weakness, Numbness Sepsis Event Evaluation Height, Weight, BMI Height: 5'10.00" Weight: 190lbs. 0.0oz. 86.369196kn; 27.00 BMI Method: Exam Exam Vital Signs Date Time Temp Pulse Resp B/P (MAP) Pulse Ox O2 Delivery O2 Flow Rate FiO2 11/23/19 03:41 36.4 91 Room Air 11/23/19 03:19 93 Room Air 11/23/19 03:00 61 10 111/76 (88) Room Air 11/23/19 03:00 93 Room Air 11/23/19 02:00 92 Room Air 11/23/19 02:00 60 18 122/88 (99) Room Air 11/23/19 01:00 63 11/23/19 01:00 63 18 111/85 (94) Room Air 11/23/19 01:00 92 Room Air 11/23/19 00:47 95 Room Air 11/23/19 00:00 93 Room Air 11/23/19 00:00 60 19 109/78 (88) Room Air 11/23/19 00:00 92 Room Air 11/22/19 23:00 95 Room Air 11/22/19 23:00 61 10 123/92 (102) Room Air 11/22/19 22:45 60 15 107/99 (102) Room Air 11/22/19 22:37 60 11/22/19 22:30 60 19 106/86 (93) Room Air 11/22/19 22:22 36.0 60 20 108/86 (93) 97 Room Air 11/22/19 22:15 53 16 118/81 96 Nasal Cannula 2.00 11/22/19 20:40 63 11/22/19 20:30 Nasal Cannula 11/22/19 20:08 131 22 104/93 (97) 98 Room Air I & O 11/23/19 07:00 Output Total 850 ml Balance -850 ml Height & Weight Height: 5'10.00" Weight: 190lbs. 0.0oz. 86.284084ue; 27.00 BMI Method: General Appearance: No Apparent Distress, WD/WN; No Anxious; Other (PT CALM, VERY PLEASANT AND TALKATIVE, HARD OF HEARING) HEENT: Moist Mucous Membranes; No Scleral Icterus (L), No Scleral Icterus (R) Neck: Normal Inspection; No JVD Respiratory: Chest Non Tender, Normal Breath Sounds, No Accessory Muscle Use, No Respiratory Distress Cardiovascular: No JVD, No Murmur, Normal Peripheral Pulses, Tachycardia Capillary Refill: Less Than 3 Seconds Peripheral Pulses: 2+ Radial Pulses (R), 2+ Radial Pulses (L) Gastrointestinal: non tender, soft Extremity: Normal Capillary Refill, Normal Inspection, Normal Range of Motion, Non Tender, No Calf Tenderness, No Pedal Edema Neurologic/Psychiatric: Alert, Oriented x3, No Motor/Sensory Deficits, Normal Mood/Affect Skin: Normal Color (VERY GAYTAN), Warm/Dry Results Lab Laboratory Tests 11/22/19 20:19 11/23/19 02:29 Assessment/Plan Assessment/Plan Wide complex tachycardia -dual-chamber ICD placed in September -cardiology following -amiodarone started Hx of A-fib -on Eliquis Hx of mild CHF CAD -per cardiology report DALTON DE DO 11/23/19 0548: History of Present Illness History of Present Illness Time Seen by Provider: 05:42 Allergies and Home Medications Allergies Coded Allergies: Penicillins (Verified Allergy, Unknown, 11/19/16) Home Medications Amiodarone HCl 200 Mg Tablet, 200 MG PO BID, (Reported) Amlodipine Besylate 5 Mg Tablet, 5 MG PO DAILY, (Reported) Apixaban 5 Mg Tablet, 5 MG PO BID, (Reported) Cyanocobalamin (Vitamin B-12) 1,000 Mcg/1 Ml Kit, 1,000 MCG IJ MONTHLY, (Reported) Ibuprofen 200 Mg Capsule, 600 MG PO Q8H PRN for PAIN-MILD (1-4), (Reported) [place] 3 Polyunsat Fatty Acids 1,000 Mg Cap, 3,000 MG PO HS, (Reported) Sennosides/Docusate Sodium 1 Each Tablet, 2 EACH PO Q48H, (Reported) Review of Systems Time Seen by Provider: 05:42 Exam Exam General Appearance: No Apparent Distress, WD/WN HEENT: Moist Mucous Membranes; No Scleral Icterus (L), No Scleral Icterus (R) Neck: Normal Inspection; No JVD Respiratory: Chest Non Tender, Normal Breath Sounds, No Accessory Muscle Use, No Respiratory Distress Cardiovascular: No JVD, No Murmur, Normal Peripheral Pulses, Tachycardia Gastrointestinal: non tender, soft Extremity: Normal Capillary Refill, Normal Inspection, Normal Range of Motion, Non Tender, No Calf Tenderness Neurologic/Psychiatric: Alert, Oriented x3, No Motor/Sensory Deficits, Normal Mood/Affect Skin: Normal Color (VERY GAYTAN), Warm/Dry Assessment/Plan Assessment/Plan Wide complex tachycardia - Cardioverted in ED now sinus -dual-chamber ICD placed in September -cardiology following -amiodarone gtt Elevated troponin -- probably secondary to cardioversion -Cardiology following Hx of A-fib -on Eliquis Acute renal failure -IVF Elevated LFTs -Monitor Hx of mild CHF CAD -per cardiology report Supervisory-Addendum Brief Verification & Attestation Participated in pt care: history, MDM, physical Personally performed: exam, history, MDM, supervision of care Care discussed with: Medical Student Procedures: n/a Verification and Attestation of Medical Student E/M Service A medical student performed and documented this service in my presence. I reviewed and verified all information documented by the medical student and made modifications to such information, when appropriate. I personally performed the physical exam and medical decision making. Dalton De, Nov 23, 2019,05:48 GERRY SAAVEDRA,MED STUDENT Nov 23, 2019 04:57 DALTON DE DO Nov 23, 2019 05:48
[2019-11-23] MEDS ORDERED: LACTATED RINGERS 1,000 ML IV ONE (05:47)
[2019-11-23] MEDS: LACTATED RINGERS 1,000 ML IV SCH ×2 (05:51→19:58)
--- NOTE | 2019-11-23 06:20 | Diagnostic Imaging Report ---
Clinical indication: Patient with wide complex tachycardia. Exam: Portable chest x-ray upright view. Comparisons: Portable chest x-ray dated 11/22/2019. Findings: Stable cardiomegaly. Pulmonary vasculature is mildly congested and appears to have slightly progressed. There is also slight low lung volumes with suspected mild bibasilar atelectasis. There is no pleural effusion or pneumothorax. Cardiac pacemaker/AICD again seen overlying the left chest region. The remainder of this exam shows no significant interval change compared to the prior study of comparison. Impression: 1: There is cardiomegaly with mild pulmonary vascular congestion which is slightly progressed. 2: There is interval development of mild bilateral lung atelectasis. Dictated by: Dictated on workstation # [id number]
--- NOTE | 2019-11-23 07:59 | Cardiology History & Physical ---
HPI-Cardiology Cardiology H&P Date of Admission Primary Care Physician Shaji Gil DO Attending Physician Shaji Gil DO Consulting Physician [id number] Hx Patient Social History Alcohol Use: Past History Recreational Drug Use: No Smoking Status: Never a Smoker Recent Foreign Travel: No Recent Infectious Disease Expo: No Hospitalization with Isolation: Denies Immunizations Up To Date Tetanus Booster (TDap): Unknown Date of Pneumonia Vaccine: May 06, 2016 Past Medical History [facility] As described under Assessment. Allergies and Home Medications Allergies Coded Allergies: Penicillins (Verified Allergy, Unknown, 11/19/16) Home Medications Amiodarone HCl 400 Mg Tablet, 400 MG PO BID Prescribed by: ANDREE FREGOSO on 11/25/19 0841 Apixaban 5 Mg Tablet, 5 MG PO BID, (Reported) Cyanocobalamin (Vitamin B-12) 1,000 Mcg/1 Ml Kit, 1,000 MCG IJ MONTHLY, (Reported) Digoxin 250 Mcg Tablet, 0.25 MG PO DAILY Prescribed by: ANDREE FREGOSO on 11/25/19 0841 Diltiazem HCl 360 Mg Cap.er.24h, 360 MG PO DAILY Prescribed by: ANDREE FREGOSO on 11/25/19 0841 Furosemide 20 Mg Tablet, 20 MG PO DAILY Prescribed by: ANDREE FREGOSO on 11/25/19 0841 [place] 3 Polyunsat Fatty Acids 1,000 Mg Cap, 3,000 MG PO HS, (Reported) Potassium Chloride 20 Meq Tablet.er, 20 MEQ PO DAILY Prescribed by: ANDREE FREGOSO on 11/25/19 0841 Sennosides/Docusate Sodium 1 Each Tablet, 2 EACH PO Q48H, (Reported) Physical Exam-Cardiology Physical Exam Vital Signs/I&O Capillary Refill : Less Than 3 Seconds Data Review Labs Microbiology 11/22/19 MRSA Screen - Final, Complete MRSA not isolated Radiology NAME: [facility] REC#: [id number] PT STATUS: ADM IN : 1940 PHYSICIAN: SHAJI GIL DO ADMIT DATE: 11/22/19/ICU Draft Date of Exam:11/23/19 CHEST 1 VIEW, AP/PA ONLY Clinical indication: Patient with wide complex tachycardia. Exam: Portable chest x-ray upright view. Comparisons: Portable chest x-ray dated 11/22/2019. Findings: Stable cardiomegaly. Pulmonary vasculature is mildly congested and appears to have slightly progressed. There is also slight low lung volumes with suspected mild bibasilar atelectasis. There is no pleural effusion or pneumothorax. Cardiac pacemaker/AICD again seen overlying the left chest region. The remainder of this exam shows no significant interval change compared to the prior study of comparison. Impression: 1: There is cardiomegaly with mild pulmonary vascular congestion which is slightly progressed. 2: There is interval development of mild bilateral lung atelectasis. Dictated on workstation # [id number] Dict: 11/23/19 0545 Trans: 11/23/19 0620 KEVEN [id number] Interpreted by: GABRIEL FORTE MD Electronically signed by: A/P-Cardiology Assessment/Admission Diagnosis Syncope, secondary to ventricular tachycardia, was hospitalized on September 27, 2019, underwent cardiac catheterization and started on amiodarone. Had another episode of tachycardia on November 20 and had another cardioversion, having multiple episodes of short runs of atrial fibrillation with rapid ventricular response. Continue on amiodarone 200 mg daily, I instructed him to increase it to twice a day and use beta blockers as needed. Continue to monitor Chronic paroxysmal atrial fibrillation, after the shock for the ventricular tachycardia patient went to sinus rhythm, he is unable to tolerate beta blockers, using it only as needed, continue on amiodarone and he is scheduled to see Dr. Peter next week for possible ablation [id number] score of 3, yearly risk of stroke without oral anticoagulation is 3.2 percent, maintained on Eliquis. Sinus node dysfunction, status post dual-chamber pacemaker/ICD placed by Dr. Peter. Scheduled to see him next week Hypertension, good control, was intolerant to Toprol, feeling foggy. I instructed him to take it as needed for tachycardia Coronary artery disease, cardiac catheterization done on September 27, 2019 after ventricular tachycardia and syncope showing mild disease nonobstructive disease. Moderate obstructive sleep apnea, having difficulties adjusting to the C Pap machine. Managed by Dr. Martinez History of cholecystectomy, rotator cuff surgery, knee replacement surgery and cataract surgery. Clinical Quality Measures DVT/VTE Risk/Contraindication: Risk Factor Score Per Nursin RFS Level Per Nursing on Admit: 3=High ANDREE FREGOSO Nov 23, 2019 07:59
[2019-11-23] MEDS ORDERED: FUROSEMIDE 40 MG/4 ML INJ (LASIX) IVP ONE (10:00)
[2019-11-23] MEDS ORDERED: APIXABAN 5 MG (ELIQUIS) TABLET PO ONE (10:00)
[2019-11-23] MEDS ORDERED: AMIO200T4 PO (10:40)
[2019-11-23] MEDS ORDERED: AMLO5TAB9 PO (10:40)
[2019-11-23] MEDS ORDERED: SENN-145 PO (10:40)
--- NOTE | 2019-11-23 10:50 | NUR ---
I SPOKE WITH THE PATIENT AND HIS AND WENT THROUGH THE EXTERNAL MED HISTORY AND CALLED DR. TRUJILLO'S OFFICE TO COMPLETE THE MED REC. METOPROLOL 25MG AND LISINOPRIL 40MG HAVE BOTH BEEN RECENTLY PICKED UP BUT THE PATIENT SAID THAT HE WAS NO LONGER TAKING EITHER OF THEM. AMLODIPINE 10MG AND 5MG WERE BOTH ON THE EXTERNAL MED HISTORY BUT THE PATIENT IS ONLY TAKING 5MG DAILY. ELIQUIS 5MG WAS GIVEN TO THE PATIENT SAMPLES FROM DR. TRUJILLO'S OFFICE. LAST PICKED UP ON 11/22/2019 #60 30DS OTC: FISH OIL SENNA S IBUPROFEN
--- NOTE | 2019-11-23 13:23 | Consultation-Cardiology ---
HPI-Cardiology Cardiology Consultation: Date of Consultation 11/23/19 Time Seen by a Provider: 09:30 Date of Admission Attending Physician Shaji Gil DO Admitting Physician Shaji Gil DO Consulting Physician SHERWIN DALEY MD, MA, FACP, FACC, FSCAI, CCDS HPI: Chief Complaint: Palpitations HPI 79 yo man with 2 presentations to ER within the last 3 days with tachycardia requiring cardioversion. Saw Dr Pruett yesterday. Amiodarone increased. BB added back to regimen. Had recurrent tach that afternoon, waited to come to ER for several hours, had to be cardioverted in ER. Currently feels well. Denies cp or syncope. No shortness of breath. Report marked intolerance to beta-gabrielle. Review of Systems-Cardiology Review of Systems Constitutional: malaise, tiredness; No weight loss, No weight gain Eyes: No vision change Ears/Nose/Throat: No ear discharge, No nasal drainage, No recent hearing loss Respiratory: As described under HPI Cardiovascular: As described under HPI Gastrointestinal: No diarrhea, No vomiting Genitourinary: No dysuria, No hematuria, No urine frequency changes Musculoskeletal: No back pain, No joint pain Skin: No rash, No ulcerations Psychiatric/Neurological: No seizure, No focal weakness, No syncope Hematologic: No bleeding abnormalities CCR-Mzjphh-Rloenv Hx Patient Social History Alcohol Use: Past History Recreational Drug Use: No Smoking Status: Never a Smoker Recent Foreign Travel: No Recent Infectious Disease Expo: No Hospitalization with Isolation: Denies Immunizations Up To Date Tetanus Booster (TDap): Unknown Date of Pneumonia Vaccine: May 06, 2016 Past Medical History PMH As described under Assessment. Family Medical History Family Medical History: Does not report fam h/o early CAD Allergies and Home Medications Allergies Coded Allergies: Penicillins (Verified Allergy, Unknown, 11/19/16) Home Medications Amiodarone HCl 200 Mg Tablet, 200 MG PO BID, (Reported) Amlodipine Besylate 5 Mg Tablet, 5 MG PO DAILY, (Reported) Apixaban 5 Mg Tablet, 5 MG PO BID, (Reported) Cyanocobalamin (Vitamin B-12) 1,000 Mcg/1 Ml Kit, 1,000 MCG IJ MONTHLY, (Reported) Ibuprofen 200 Mg Capsule, 600 MG PO Q8H PRN for PAIN-MILD (1-4), (Reported) [place] 3 Polyunsat Fatty Acids 1,000 Mg Cap, 3,000 MG PO HS, (Reported) Sennosides/Docusate Sodium 1 Each Tablet, 2 EACH PO Q48H, (Reported) Patient Home Medication List Home Medication List Reviewed: Yes Physical Exam-Cardiology Physical Exam Vital Signs/I&O 11/23/19 11/23/19 11/23/19 11/23/19 02:00 02:00 03:00 03:00 Pulse 60 61 Resp 18 10 B/P (MAP) 122/88 (99) 111/76 (88) Pulse Ox 92 93 O2 Delivery Room Air Room Air Room Air Room Air 11/23/19 11/23/19 11/23/19 11/23/19 03:19 03:41 04:00 04:00 Temp 36.4 Pulse 59 Resp 8 B/P (MAP) 98/69 (79) Pulse Ox 93 91 93 O2 Delivery Room Air Room Air Room Air Room Air 11/23/19 11/23/19 11/23/19 11/23/19 05:00 05:00 06:00 06:00 Pulse 61 78 Resp 18 11 B/P (MAP) 110/82 (91) 108/94 (99) Pulse Ox 93 94 O2 Delivery Room Air Room Air Room Air Room Air 11/23/19 11/23/19 11/23/19 11/23/19 07:00 07:00 07:16 08:00 Temp 36.8 Pulse 54 54 62 63 Resp 11 19 18 B/P (MAP) 106/72 (83) 117/67 (84) 118/84 (95) O2 Delivery Room Air Room Air Room Air 11/23/19 11/23/19 11/23/19 11/23/19 08:00 09:00 10:00 11:12 Temp 36.6 Pulse 60 60 69 Resp 17 13 18 B/P (MAP) 108/80 (89) 111/86 (94) 146/81 (102) Pulse Ox 96 95 O2 Delivery Room Air Room Air Room Air Room Air 11/23/19 11/23/19 12:00 12:05 Pulse 61 Resp 28 B/P (MAP) 93/86 (88) Pulse Ox 94 O2 Delivery Room Air Capillary Refill : Less Than 3 Seconds Constitutional: AAO x 3, well-developed, well-nourished HEENT: EOMI, hearing is well preserved; No xanthelasmas are seen Neck: carotid pulses are 2 + bilaterally, with good upstrokes Respiratory: No accessory muscle use; other (good bilat air entry, somewhat diminished at the bases) Cardiovascular: regular rate-rhythm, S1 and S2, systolic murmur (soft IZABEL at card base) Gastrointestinal: No tender; soft; No guarding, No rebound; audible bowel sounds Extremities: No clubbing, No cyanosis, No significant edema Neurologic/Psychiatric: other (moves all limbs equally) Skin: No rash on exposed areas, No ulcerations on exposed areas Data Review Labs Laboratory Tests 11/22/19 20:19: White Blood Count 7.8, Red Blood Count 4.81, Hemoglobin 13.8, Hematocrit 41, Mean Corpuscular Volume 85, Mean Corpuscular Hemoglobin 29, Mean Corpuscular Hemoglobin Concent 34, Red Cell Distribution Width 15.6H, Platelet Count 244, Mean Platelet Volume 9.7, Neutrophils (%) (Auto) 73, Lymphocytes (%) (Auto) 20, Monocytes (%) (Auto) 7, Eosinophils (%) (Auto) 0, Basophils (%) (Auto) 0, Neutrophils # (Auto) 5.7, Lymphocytes # (Auto) 1.6, Monocytes # (Auto) 0.5, Eosinophils # (Auto) 0.0, Basophils # (Auto) 0.0, Prothrombin Time 18.8H, INR Comment 1.5H, Activated Partial Thromboplast Time 36H, Magnesium Level 2.8H, Total Creatine Kinase 129, Myoglobin 146.6H, Troponin I 0.041H, B-Type Natriuretic Peptide 1213.9H 11/23/19 02:29: White Blood Count 7.5, Red Blood Count 4.66, Hemoglobin 13.1L, Hematocrit 40, Mean Corpuscular Volume 85, Mean Corpuscular Hemoglobin 28, Mean Corpuscular Hemoglobin Concent 33, Red Cell Distribution Width 15.6H, Platelet Count 211, Mean Platelet Volume 10.2, Neutrophils (%) (Auto) 73, Lymphocytes (%) (Auto) 18, Monocytes (%) (Auto) 9, Eosinophils (%) (Auto) 0, Basophils (%) (Auto) 0, Neutrophils # (Auto) 5.5, Lymphocytes # (Auto) 1.3, Monocytes # (Auto) 0.7, Eosinophils # (Auto) 0.0, Basophils # (Auto) 0.0, Magnesium Level 1.9, Sodium Level 138, Potassium Level 4.0, Chloride Level 105, Carbon Dioxide Level 20L, Anion Gap 13, Blood Urea Nitrogen 26H, Creatinine 1.95H, Estimat Glomerular Filtration Rate 34, BUN/Creatinine Ratio 13, Glucose Level 117H, Calcium Level 8.9, Corrected Calcium 9.1, Phosphorus Level 3.8, Total Bilirubin 1.8H, Aspartate Amino Transf (AST/SGOT) 91H, Alanine Aminotransferase (ALT/SGPT) 87H, Alkaline Phosphatase 67, Total Protein 7.4, Albumin 3.8 A/P-Cardiology Assessment/Admission Diagnosis 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 Echo of 09/28/19: LVEF 40-45%, grade 2 diastolic dysfunction, biatrial enlargement, mod (valve area approx 1 sq cm), mild MR, mod TR, PASP 45-50 mmHg Inability to tolerate beta gabrielle Hypertension, by history Coronary artery disease, mild, on card cath of 09/27/19 HUM[place], not fully compliant with CPAP, managed by Dr Martinez Surgical history: cholecystectomy, rotator cuff surgery, knee replacement surgery and cataract surgery. 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
[2019-11-23] MEDS: APIXABAN 5 MG (ELIQUIS) TABLET PO SCH (19:13)
[2019-11-23] MEDS: AMIODARONE 200 MG (CORDARONE) TAB PO SCH (19:13)
--- NOTE | 2019-11-23 22:45 | NUR ---
2246- DR DALEY PAGED D/T PT HEART RATE BEING 140. PT WAS EXPERIENCING WIDE COMPLEX TACHYCARDIA. 2253- 0.5 MG OF DIGOXIN GIVEN PER DR DALEY. 2254- CARDIZEM DRIP INITIATED AT 10MG/HR PER DR DALEY. 2306- PT CONVERTED TO SINUS RHYTHM WITH A RATE OF 60. VITAL SIGNS STABLE AT THIS TIME. WILL CONTINUE TO MONITOR.
[2019-11-23] MEDS ORDERED: DIGOXIN 0.25 MG/ML (LANOXIN) 2 ML AMP IV ONE (23:00)
[2019-11-23] MEDS ORDERED: dilTIAZem DRIP PRE-MIX 125 ML IV SCH (23:00)
[2019-11-24] VITALS (16 sets, daily range): BP systolic 103–120; BP diastolic 56–98
[2019-11-24 03:46] LABS: BASOPHILS % (AUTO) 0 % (0-10); EOSINOPHILS # (AUTO) 0.1 10^3/uL (0.0-0.3); EOSINOPHILS % (AUTO) 1 % (0-10); HEMATOCRIT 36 % (40-54); HEMOGLOBIN 12.2 G/DL (13.3-17.7); LYMPHOCYTES # (AUTO) 1.2 X 10^3 (1.0-4.0); LYMPHOCYTES % (AUTO) 18 % (12-44); MEAN CORPUSCULAR HEMOGLOBIN 29 PG (25-34); MEAN CORPUSCULAR HGB CONC 34 G/DL (32-36); MEAN CORPUSCULAR VOLUME 84 FL (80-99); MONOCYTES # (AUTO) 0.5 X 10^3 (0.0-1.0); MONOCYTES % (AUTO) 7 % (0-12); NEUTROPHILS # (AUTO) 5.2 X 10^3 (1.8-7.8); NEUTROPHILS % (AUTO) 75 % (42-75); PLATELET COUNT 204 10^3/uL (130-400); RED CELL DISTRIBUTION WIDTH 14.8 % (10.0-14.5)
[2019-11-24 04:06] LABS: ALBUMIN 3.5 GM/DL (3.2-4.5); BILIRUBIN,TOTAL 1.4 MG/DL (0.1-1.0); CALCIUM 8.9 MG/DL (8.5-10.1); CREATININE SERUM 1.72 MG/DL (0.60-1.30); POTASSIUM 3.4 MMOL/L (3.6-5.0)
[2019-11-24] MEDS: POTASSIUM CL 10MEQ/50ML IVPB 50 ML IV SCH (04:19)
[2019-11-24] MEDS: KCL 20 MEQ TAB (K-DUR) PO SCH (04:19)
[2019-11-24] MEDS: MAGNESIUM 1 GM/100 ML IVPB 100 ML IV SCH (04:19)
--- NOTE | 2019-11-24 04:53 | Pulmonary Progress Note ---
GERRY SAAVEDRA,MED STUDENT 11/24/19 0453: Subjective Date Seen by a Provider: Nov 24, 2019 Time Seen by a Provider: 04:35 Subjective/Events-last exam Pt. denies new concerns this morning. Went back into wide complex tachycardia overnight, and cardizem and digoxin were started per cardiology and pt. converted to sinus rhythm. Sepsis Event Evaluation Height, Weight, BMI Height: 5'10.00" Weight: 190lbs. 0.0oz. 86.634564lh; 27.00 BMI Method: Exam Exam Vital Signs Date Time Temp Pulse Resp B/P (MAP) Pulse Ox O2 Delivery O2 Flow Rate FiO2 11/24/19 04:00 36.6 11/24/19 03:03 95 Room Air 11/24/19 03:00 82 17 110/69 (83) 90 Room Air 11/24/19 02:00 78 13 108/74 (85) 94 Room Air 11/24/19 01:00 79 11/24/19 01:00 79 14 112/77 (89) 97 Room Air 11/24/19 00:00 85 9 117/98 (104) 94 Room Air 11/23/19 23:42 37.0 11/23/19 23:40 95 Room Air 11/23/19 23:10 68 17 130/95 (107) 92 Room Air 11/23/19 23:06 89 11/23/19 23:00 140 20 128/104 (112) 93 Room Air 11/23/19 22:47 138 22 112/95 (101) 94 Room Air 11/23/19 22:41 140 15 107/93 (98) 87 Room Air 11/23/19 22:39 138 11/23/19 22:00 80 22 113/83 (93) 91 Room Air 11/23/19 21:00 65 14 113/79 (90) 91 Room Air 11/23/19 20:15 61 20 108/86 (93) 94 Room Air 11/23/19 20:00 60 21 112/79 (90) 95 Room Air 11/23/19 19:45 60 30 117/91 (100) 97 Room Air 11/23/19 19:43 95 Room Air 11/23/19 19:30 64 30 118/96 (103) 97 Room Air 11/23/19 19:15 61 122/80 (94) 98 Room Air 11/23/19 19:01 61 11/23/19 19:00 61 22 109/78 (88) 95 Room Air 11/23/19 18:00 60 13 115/77 (90) 87 Room Air 11/23/19 17:00 62 35 107/89 (95) 96 Room Air 11/23/19 16:00 71 34 106/75 (85) 85 Room Air 11/23/19 15:48 95 Room Air 11/23/19 15:40 36.6 11/23/19 15:00 65 21 84/80 (81) 95 Room Air 11/23/19 14:00 60 18 109/78 (88) 94 Room Air 11/23/19 13:00 61 11/23/19 13:00 61 27 107/83 (91) 93 Room Air 11/23/19 12:05 94 Room Air 11/23/19 12:00 61 28 93/86 (88) 11/23/19 11:12 36.6 69 18 146/81 (102) 95 Room Air 11/23/19 10:00 60 13 111/86 (94) Room Air 11/23/19 09:00 60 17 108/80 (89) Room Air 11/23/19 08:00 96 Room Air 11/23/19 08:00 63 18 118/84 (95) Room Air 11/23/19 07:16 36.8 62 19 117/67 (84) Room Air 11/23/19 07:00 54 11 106/72 (83) Room Air 11/23/19 07:00 54 11/23/19 06:00 78 11 108/94 (99) Room Air 11/23/19 06:00 94 Room Air 11/23/19 05:00 61 18 110/82 (91) Room Air 11/23/19 05:00 93 Room Air I & O 11/24/19 07:00 Intake Total 2000 ml Output Total 1800 ml Balance 200 ml Height & Weight Height: 5'10.00" Weight: 190lbs. 0.0oz. 86.863237ye; 27.00 BMI Method: General Appearance: No Apparent Distress, WD/WN HEENT: Moist Mucous Membranes; No Scleral Icterus (L), No Scleral Icterus (R) Neck: Normal Inspection; No JVD Respiratory: Chest Non Tender, Normal Breath Sounds, No Accessory Muscle Use, No Respiratory Distress Cardiovascular: No JVD, No Murmur, Normal Peripheral Pulses, Tachycardia Capillary Refill: Less Than 3 Seconds Peripheral Pulses: 2+ Radial Pulses (R), 2+ Radial Pulses (L) Gastrointestinal: non tender, soft Extremity: Normal Capillary Refill, Normal Inspection, Normal Range of Motion, Non Tender, No Calf Tenderness Neurologic/Psychiatric: Alert, Oriented x3, No Motor/Sensory Deficits, Normal Mood/Affect Skin: Normal Color (VERY GAYTAN), Warm/Dry Results Lab Laboratory Tests 11/22/19 20:19 11/23/19 02:29 11/24/19 02:53 Assessment/Plan Assessment/Plan Wide complex tachycardia - Cardioverted in ED now sinus -dual-chamber ICD placed in September -cardiology following -amiodarone gtt -on cardizem Elevated troponin -- probably secondary to cardioversion -Cardiology following Hx of A-fib -on Eliquis Acute renal failure -IVF -improving Elevated LFTs -Monitor Hx of mild CHF CAD -per cardiology report DALTON DE DO 11/24/19 0600: Subjective Time Seen by a Provider: 05:58 Exam Exam General Appearance: No Apparent Distress, WD/WN HEENT: Moist Mucous Membranes Neck: Normal Inspection Respiratory: Chest Non Tender, Normal Breath Sounds, No Accessory Muscle Use, No Respiratory Distress Cardiovascular: No JVD, No Murmur, Normal Peripheral Pulses Gastrointestinal: non tender, soft Extremity: Normal Capillary Refill, Normal Inspection, Normal Range of Motion, Non Tender, No Calf Tenderness Neurologic/Psychiatric: Alert, Oriented x3, No Motor/Sensory Deficits, Normal Mood/Affect Skin: Normal Color (VERY GAYTAN), Warm/Dry Assessment/Plan Assessment/Plan Wide complex tachycardia - Cardioverted in ED now sinus -dual-chamber ICD placed in September -cardiology following -amiodarone gtt -on cardizem Elevated troponin -- probably secondary to cardioversion -Cardiology following Hx of A-fib -on Eliquis Acute renal failure -IVF -improving Elevated LFTs -Monitor Hx of mild CHF CAD -per cardiology report Supervisory-Addendum Brief Verification & Attestation Participated in pt care: history, MDM, physical Personally performed: exam, history Care discussed with: Medical Student Procedures: n/a Verification and Attestation of Medical Student E/M Service A medical student performed and documented this service in my presence. I reviewed and verified all information documented by the medical student and made modifications to such information, when appropriate. I personally performed the physical exam and medical decision making. Dalton De, Nov 24, 2019,06:00 GERRY SAAVEDRA,MED STUDENT Nov 24, 2019 04:53 DALTON DE DO Nov 24, 2019 06:00
--- NOTE | 2019-11-24 07:49 | Diagnostic Imaging Report ---
INDICATION: Tachycardia, cardiac pacemaker COMPARISON: 11/23/2019 FINDINGS: Single view of the chest demonstrates stable cardiac enlargement. Vascular congestion has resolved. There is no pneumothorax, effusion or focal infiltrate. Pacemaker is in stable position. IMPRESSION: Persisting cardiac enlargement with resolved central vascular congestion. Dictated by: Dictated on workstation # [id number]
[2019-11-24] MEDS: AMIODARONE 200 MG (CORDARONE) TAB PO SCH ×2 (07:59→21:19)
[2019-11-24] MEDS: APIXABAN 5 MG (ELIQUIS) TABLET PO SCH ×2 (08:00→21:19)
[2019-11-24] MEDS: DIGOXIN 0.25 MG (LANOXIN) TAB PO SCH (08:29)
[2019-11-24] MEDS ORDERED: KCL 20 MEQ TAB (K-DUR) PO ONE ×2 (09:00→09:45)
--- NOTE | 2019-11-24 09:26 | Progress Note - Cardiology ---
Cardiology SOAP Progress Note Objective: I&O/Vital Signs Weight (Pounds): 190 Weight (Ounces): 0.0 Weight (Calculated Kilograms): 86.152777 Constitutional: AAO x 3, well-developed, well-nourished Respiratory: No accessory muscle use; other (good bilat air entry, somewhat diminished at the bases) Cardiovascular: regular rate-rhythm, S1 and S2, systolic murmur (soft IZABEL at card base) Gastrointestional: No tender; soft; No guarding, No rebound; audible bowel sounds Extremities: No clubbing, No cyanosis, No significant edema Neurologic/Psychiatric: other (moves all limbs equally) Skin: No rash on exposed areas, No ulcerations on exposed areas Results/Procedures: Labs Microbiology 11/22/19 MRSA Screen - Final, Complete MRSA not isolated Procedures NAME: [facility] REC#: [id number] PT STATUS: ADM IN : 1940 PHYSICIAN: CAROLANN ROMAN DO ADMIT DATE: 11/22/19/ICU Draft Date of Exam:11/24/19 CHEST 1 VIEW, AP/PA ONLY INDICATION: Tachycardia, cardiac pacemaker COMPARISON: 11/23/2019 FINDINGS: Single view of the chest demonstrates stable cardiac enlargement. Vascular congestion has resolved. There is no pneumothorax, effusion or focal infiltrate. Pacemaker is in stable position. IMPRESSION: Persisting cardiac enlargement with resolved central vascular congestion. 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 Echo of 09/28/19: LVEF 40-45%, grade 2 diastolic dysfunction, biatrial enlargement, mod (valve area approx 1 sq cm), mild MR, mod TR, PASP 45-50 mmHg Inability to tolerate beta gabrielle Hypertension, by history Coronary artery disease, mild, on card cath of 09/27/19 HUMBLE, not fully compliant with CPAP, managed by Dr Martinez Surgical history: cholecystectomy, rotator cuff surgery, knee replacement surgery and cataract surgery. Plan: * Recurrent WCT last evening - received IV Cardizem - increase oral dose - converted * Continue oral amiodarone * D/c bb due to intolerance * iv furosemide today due to decomp CHF * Hold DIANNE-inhib for now due to marked deterioration of renal function since September 2019 * Elevated liver enzymes of undetermined etiology - consult medical services * Monitor labs closely ANDREE FREGOSO Nov 24, 2019 09:26
[2019-11-24] MEDS ORDERED: FUROSEMIDE 40 MG/4 ML INJ (LASIX) IVP ONE (09:45)
--- NOTE | 2019-11-24 10:42 | Diagnostic Imaging Report ---
PROCEDURE: US Hepatic (Liver). TECHNIQUE: Multiple real-time grayscale images were obtained over the right upper quadrant in various projections. INDICATION: Elevated liver enzymes There are no prior studies available for comparison. The liver does not appear to be enlarged and there is no focal mass involving the liver. The biliary tree is not abnormally dilated either. The liver has normal echogenicity and there is no sign of fatty metamorphosis. Spectral and color-flow imaging of the portal and hepatic vein shows that the veins are patent and that there is normal directional flow within the veins. The gallbladder is surgically absent. The common bile duct, the pancreas, the aorta and inferior vena cava were obscured by bowel gas. The right kidney is unremarkable. IMPRESSION: 1. The liver does not appear to be enlarged and there is no focal mass involving the liver. There is no sign of fatty metamorphosis, either. 2. There has been prior cholecystectomy. 3. Much of the right upper quadrant is obscured by bowel gas. Dictated by: Dictated on workstation # [id number]
--- NOTE | 2019-11-24 14:00 | Consultation - Hospitalist ---
HPI History of Present Illness: HPI/Chief Complaint Pt is a 79yoCM with a PMH of sustained V-tach s/p defibrillator placement in September who was admitted for sustained v-tach. He was seen in the ER twice for this and was cardioverted and sent home. Last night he checked his pulse and it was 145 prompting him to seek evaluation. He was seen yesterday by his primary sock boarder Dr Stephenson and his amiodarone was doubled. Despite this he was in V- tach and was admitted to the ICU on an amiodarone gtt. I am consulted for medical management. Source: patient Date Seen 11/24/19 Attending Physician Shaji Gil DO PCP Shaji Gil DO Referring Physician Date of Admission Nov 22, 2019 at 20:40 Home Medications & Allergies Home Medications Reviewed patient Home Medication Reconciliation performed by pharmacy medication reconciliations aviation safety technician and/or nursing. Patients Allergies have been reviewed. Allergies Allergies Coded Allergies Penicillins (Verified Allergy, Unknown, 11/19/16) Past Rtxpnob-Ezzzzz-Xuxgnc Hx Past Med/Social Hx: Reviewed and Corrections made Patient Social History Alcohol Use: Past History Alcohol Beverage of Choice: Beer Recreational Drug Use: No Smoking Status: Never a Smoker Recent Foreign Travel: No Contact w/other who traveled: No Recent Hopitalizations: No Recent Infectious Disease Expo: No Immunizations Up To Date Tetanus Booster (TDap): Unknown Pediatric: Yes Date of Pneumonia Vaccine: May 06, 2016 Past Medical History Surgeries: Defibrillator, Eye Surgery, Gallbladder, Joint Replacement, Pacemaker Cardiac: Hypertension, Syncope (DUE TO WIDE COMPLEX TACHYCARDIA) Reproductive: No Sexually Transmitted Disease: No HIV/AIDS: No Gastrointestinal: Gastroesophageal Reflux, Gall Bladder Disease Musculoskeletal: Arthritis HEENT: Cataract History of Blood Disorders: No Family History Reviewed Nursing Family Hx No Pertinent Family Hx PSH: -BILATERAL CATARACT SURGERY -BILATERAL ROTATOR CUFF SURGERY -BILATERAL TOTAL KNEE REPLACEMENTS -OPEN CHOLECYSTECTOMY 1969--LARGE MIDLINE SCAR -PACEMAKER/DEFIBRILLATOR 09/2019 -CARDIOVERSIONS FOR WIDE COMPLEX TACHYCARDIA Review of Systems Constitutional: No chills, No fever Respiratory: No cough, No short of breath Cardiovascular: No chest pain; Hx of Intervention; No palpitations Gastrointestinal: No abdominal pain, No constipation, No nausea, No vomiting Genitourinary: no symptoms reported Musculoskeletal: no symptoms reported Skin: no symptoms reported Psychiatric/Neurological: No Symptoms Reported Physical Exam Physical Exam Vital Signs Vital Signs - First Documented 11/22/19 11/22/19 11/22/19 20:08 22:15 22:22 Temp 36.0 Pulse 131 Resp 22 B/P (MAP) 104/93 (97) Pulse Ox 98 O2 Delivery Room Air O2 Flow Rate 2.00 Capillary Refill : Less Than 3 Seconds Height, Weight, BMI Height: 5'10.00" Weight: 190lbs. 0.0oz. 86.122730mf; 27.00 BMI Method: General Appearance: No Apparent Distress, WD/WN HEENT: PERRL/EOMI, Moist Mucous Membranes; No Scleral Icterus (L), No Scleral Icterus (R) Neck: Normal Inspection, Supple; No JVD Respiratory: Lungs Clear, No Accessory Muscle Use, No Respiratory Distress Cardiovascular: Regular Rate, Rhythm, No Murmur, Normal Peripheral Pulses Gastrointestinal: Normal Bowel Sounds, Non Tender, Soft Extremity: Normal Capillary Refill, No Calf Tenderness, No Pedal Edema Neurologic/Psychiatric: Alert, Oriented x3, No Motor/Sensory Deficits, Normal Mood/Affect Skin: Normal Color (Noticably mckeon), Warm/Dry Results Results/Procedures Labs Laboratory Tests 11/22/19 20:19 11/23/19 02:29 11/24/19 02:53 Patient resulted labs reviewed. Imaging: Reviewed Imaging Report Assessment/Plan Assessment and Plan Assess & Plan/Chief Complaint V-tach management per primary Amiodarone, Digoxin, and Diltiazem Eliquis CHf- acutely decompensated lasix given Transaminitis likely due to heart failure Liver usg normal Check in AM Clinical Quality Measures DVT/VTE Risk/Contraindication: Risk Factor Score Per Nursin RFS Level Per Nursing on Admit: 3=High JUDSON RM MD Nov 24, 2019 14:00
--- NOTE | 2019-11-24 15:02 | Progress Note - Cardiology ---
Cardiology SOAP Progress Note Subjective: Had recurrent tach last night w/o significant symptoms No cp or syncope or shortness of breath at rest No focal weakness No n/v/d Objective: I&O/Vital Signs 11/24/19 11/24/19 11/24/19 11/24/19 03:00 03:03 04:00 04:00 Temp 36.6 Pulse 82 77 Resp 17 20 B/P (MAP) 110/69 (83) 112/84 (93) Pulse Ox 90 95 100 O2 Delivery Room Air Room Air Room Air 11/24/19 11/24/19 11/24/19 11/24/19 05:00 06:09 07:00 07:00 Pulse 84 80 87 80 Resp 18 14 23 B/P (MAP) 108/86 (93) 113/64 (80) 114/74 (87) Pulse Ox 90 92 O2 Delivery Room Air Room Air Room Air 11/24/19 11/24/19 11/24/19 11/24/19 08:00 08:00 08:35 09:00 Temp 37.1 Pulse 67 65 Resp 13 21 B/P (MAP) 114/80 (91) 103/71 (82) Pulse Ox 93 95 O2 Delivery Room Air Room Air Room Air 11/24/19 11/24/19 11/24/19 11/24/19 10:00 11:43 12:00 12:00 Temp 36.9 Pulse 91 61 Resp 25 B/P (MAP) 103/64 (77) 120/78 (92) O2 Delivery Room Air Room Air Room Air 11/24/19 11/24/19 12:29 12:40 Pulse 84 Pulse Ox 95 O2 Delivery Room Air 11/24/19 00:00 Intake Total 1900 ml Output Total 1500 ml Balance 400 ml Weight (Pounds): 190 Weight (Ounces): 0.0 Weight (Calculated Kilograms): 86.382636 Constitutional: AAO x 3, well-developed, well-nourished Respiratory: No accessory muscle use; other (good bilat air entry, somewhat diminished at the bases) Cardiovascular: regular rate-rhythm, S1 and S2, systolic murmur (soft IZABEL at card base) Gastrointestional: No tender; soft; No guarding, No rebound; audible bowel sounds Extremities: No clubbing, No cyanosis, No significant edema Neurologic/Psychiatric: other (moves all limbs equally) Skin: No rash on exposed areas, No ulcerations on exposed areas Results/Procedures: Labs Laboratory Tests 11/24/19 02:53: White Blood Count 7.0, Red Blood Count 4.28L, Hemoglobin 12.2L, Hematocrit 36L, Mean Corpuscular Volume 84, Mean Corpuscular Hemoglobin 29, Mean Corpuscular Hemoglobin Concent 34, Red Cell Distribution Width 14.8H, Platelet Count 204, Mean Platelet Volume 10.0, Neutrophils (%) (Auto) 75, Lymphocytes (%) (Auto) 18, Monocytes (%) (Auto) 7, Eosinophils (%) (Auto) 1, Basophils (%) (Auto) 0, Neutrophils # (Auto) 5.2, Lymphocytes # (Auto) 1.2, Monocytes # (Auto) 0.5, Eosinophils # (Auto) 0.1, Basophils # (Auto) 0.0, Sodium Level 138, Potassium Level 3.4L, Chloride Level 104, Carbon Dioxide Level 22, Anion Gap 12, Blood Urea Nitrogen 24H, Creatinine 1.72H, Estimat Glomerular Filtration Rate 39, BUN/Creatinine Ratio 14, Glucose Level 104, Calcium Level 8.9, Corrected Calcium 9.3, Phosphorus Level 3.0, Magnesium Level 2.0, Total Bilirubin 1.4H, Aspartate Amino Transf (AST/SGOT) 94H, Alanine Aminotransferase (ALT/SGPT) 113H, Alkaline Phosphatase 65, Total Protein 7.0, Albumin 3.5, Thyroid Stimulating Hormone (TSH ) 3.20 Microbiology 11/22/19 MRSA Screen - Final, Complete MRSA not isolated Laboratory Tests 11/22/19 20:19 11/23/19 02:29 11/24/19 02:53 A/P: Assessment: 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 Episode on the evening of 11/22/19 required cardioversion; episode on the evening of 11/23/19 responded to iv dig and iv dilt S/p dual-chamber pacemaker-defib placement by Dr Peter in September 2019 MARIANA 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 Echo of 09/28/19: LVEF 40-45%, grade 2 diastolic dysfunction, biatrial enlargement, mod (valve area approx 1 sq cm), mild MR, mod TR, PASP 45-50 mmHg Inability to tolerate beta gabrielle Hypertension, by history Coronary artery disease, mild, on card cath of 09/27/19 HUMBLE, not fully compliant with CPAP, managed by Dr Martinez Surgical history: cholecystectomy, rotator cuff surgery, knee replacement surgery and cataract surgery. Plan: * Increase oral dilt. Stop iv dilt * Add oral dig * Continue oral amiodarone * Repeat furosemide today due to decomp CHF * Hold DIANNE-inhib for now due to marked deterioration of renal function since September 2019 * Elevated liver enzymes and bilirubin of undetermined etiology - consult Medical services * Monitor labs closely SHERWIN ADLEY MD FACP FAC CCDS Nov 24, 2019 15:02
--- NOTE | 2019-11-24 16:41 | NUR ---
report given to cody martinez who assumes care of pt for remainder of shift.
--- NOTE | 2019-11-24 16:50 | NUR ---
THIS NURSE TOOK OVER CARE OF PT. THIS NURSE AGREES WITH PREVIOUS NURSE ASSESSMENT. PT IS RESTING IN BED. PT STATES HE DOES NOT NEED ANYTHING AT THE MOMENT.
--- NOTE | 2019-11-24 19:13 | Physician Query Clarification ---
"Physician Query-General Query to Physician: The medical record reflects the following clinical scenario: History/Risk factors: Cardiomyopathy, Arrhythmias, Clinical Findings: CXR: Pulmonary vascularity upper limits, BNP elevated, MARIANA, Elevated LFTs Treatment: Lasix IV, ICU monitoring Question: What condition best reflects the above clinical scenario? Please document response in the Progress notes or Discharge Summary. 1. Mild Acute systolic and diastolic heart failure 2. Mild, decompensated, systolic and diastolic CHF (as currently documented) 3. Other , with explanation of the clinical findings 4. Clinically undetermined, no explanation for the clinical findings Please remember a lack of response to the above will prompt a phone page by CDI/coding staff In responding to this query, please exercise your independent professional judgment. The purpose of this communication is to more accurately reflect the complexity of your patients condition. The fact that a question is asked does not imply that any particular answer is desired or expected. Thank you for timely response to this clarification. Josey Drake, MSN, RN RN Specialist-Clinical Doc Improvement CD -Health Info Mgmt Operations [address] [facility] t: [phone] | f: [phone] If you are unable to reach me at my extension, I may be working from home. Please contact me at [phone] PHYSICIAN RESPONSE: Based on the clinical findings in the record, please respond to the query above on this document as an addendum. Physician Response: Physician Response 2 If you have questions please contact: Field Mechanic/Site Lead: Ext: Thank you for your time and cooperation. Clinical Slip Feeder/Field Mechanic/Site Lead This is a permanent part of the medical record JOSEY DRAKE Nov 24, 2019 19:13 SHERWIN DALEY MD [facility] Nov 25, 2019 09:21"
[2019-11-25] VITALS: BP 119/78
[2019-11-25 03:24] LABS: BASOPHILS % (AUTO) 0 % (0-10); EOSINOPHILS # (AUTO) 0.1 10^3/uL (0.0-0.3); EOSINOPHILS % (AUTO) 2 % (0-10); HEMATOCRIT 38 % (40-54); HEMOGLOBIN 13.2 G/DL (13.3-17.7); LYMPHOCYTES # (AUTO) 1.4 X 10^3 (1.0-4.0); LYMPHOCYTES % (AUTO) 22 % (12-44); MEAN CORPUSCULAR HEMOGLOBIN 28 PG (25-34); MEAN CORPUSCULAR HGB CONC 34 G/DL (32-36); MEAN CORPUSCULAR VOLUME 83 FL (80-99); MEAN PLATELET VOLUME 9.4 FL (7.4-10.4); MONOCYTES # (AUTO) 0.6 X 10^3 (0.0-1.0); MONOCYTES % (AUTO) 10 % (0-12); NEUTROPHILS # (AUTO) 4.2 X 10^3 (1.8-7.8); NEUTROPHILS % (AUTO) 67 % (42-75); PLATELET COUNT 221 10^3/uL (130-400); RED CELL DISTRIBUTION WIDTH 14.6 % (10.0-14.5); WHITE BLOOD COUNT 6.3 10^3/uL (4.3-11.0)
[2019-11-25 03:51] LABS: ALBUMIN 3.6 GM/DL (3.2-4.5); BILIRUBIN,TOTAL 1.5 MG/DL (0.1-1.0); CALCIUM 9.2 MG/DL (8.5-10.1); CREATININE SERUM 1.47 MG/DL (0.60-1.30); MAGNESIUM 1.7 MG/DL (1.6-2.4); POTASSIUM 3.4 MMOL/L (3.6-5.0); TOTAL PROTEIN 7.5 GM/DL (6.4-8.2)
[2019-11-25 04:00] VITALS: BP 121/91
[2019-11-25] MEDS: POTASSIUM CL 10MEQ/50ML IVPB 50 ML IV SCH (05:48)
[2019-11-25] MEDS: KCL 20 MEQ TAB (K-DUR) PO SCH (05:49)
[2019-11-25] MEDS: MAGNESIUM 1 GM/100 ML IVPB 100 ML IV SCH (05:49)
[2019-11-25] MEDS: APIXABAN 5 MG (ELIQUIS) TABLET PO SCH (07:46)
[2019-11-25] MEDS: DIGOXIN 0.25 MG (LANOXIN) TAB PO SCH (07:46)
[2019-11-25] MEDS: AMIODARONE 200 MG (CORDARONE) TAB PO SCH (07:47)
[2019-11-25 08:00] VITALS: BP 117/84
[2019-11-25] MEDS ORDERED: POTA-51 PO (08:41)
[2019-11-25] MEDS ORDERED: FURO-125 PO (08:41)
[2019-11-25] MEDS ORDERED: AMIO400T5 PO (08:41)
[2019-11-25] MEDS ORDERED: DIGO250T15 PO (08:41)
[2019-11-25] MEDS ORDERED: DILT360C26 PO (08:41)
[2019-11-25] MEDS ORDERED: KCL 20 MEQ TAB (K-DUR) PO ONE (08:45)
[2019-11-25] MEDS ORDERED: MAGNESIUM 1 GM/100 ML IVPB 100 ML IV ONE (08:45)
[2019-11-25] MEDS ORDERED: FUROSEMIDE 20 MG (LASIX) TAB PO SCH (09:00)
--- NOTE | 2019-11-25 09:00 | Progress Note - Cardiology ---
Cardiology SOAP Progress Note Subjective: No palp or syncope or shortness of breath in past 24 hours or more No focal weakness No n/v/d Objective: I&O/Vital Signs 11/24/19 11/24/19 11/24/19 11/25/19 21:00 22:00 23:00 00:00 Pulse 84 65 59 B/P (MAP) 110/84 (93) Pulse Ox 93 96 96 O2 Delivery Room Air Room Air Room Air Room Air 11/25/19 11/25/19 11/25/19 11/25/19 00:00 00:00 01:00 04:00 Temp 36.8 Pulse 60 60 84 B/P (MAP) 119/78 (92) 121/91 (101) Pulse Ox 95 94 O2 Delivery Room Air Room Air 11/25/19 11/25/19 11/25/19 11/25/19 04:00 04:00 06:39 07:59 Temp 36.8 Pulse 89 O2 Delivery Room Air Room Air 11/25/19 08:00 Temp 36.8 Pulse 61 Resp 17 B/P (MAP) 117/84 (95) Pulse Ox 95 O2 Delivery Room Air 11/25/19 00:00 Intake Total 840 ml Output Total 3025 ml Balance -2185 ml Weight (Pounds): 190 Weight (Ounces): 0.0 Weight (Calculated Kilograms): [id number] Constitutional: AAO x 3, well-developed, well-nourished Respiratory: No accessory muscle use; other (good bilat air entry, somewhat diminished at the bases) Cardiovascular: regular rate-rhythm, S1 and S2, systolic murmur (soft IZABEL at card base) Gastrointestional: No tender; soft; No guarding, No rebound; audible bowel sounds Extremities: No clubbing, No cyanosis, No significant edema Neurologic/Psychiatric: other (moves all limbs equally) Skin: No rash on exposed areas, No ulcerations on exposed areas Results/Procedures: Labs Laboratory Tests 11/25/19 03:00: White Blood Count 6.3, Red Blood Count 4.65, Hemoglobin 13.2L, Hematocrit 38L, Mean Corpuscular Volume 83, Mean Corpuscular Hemoglobin 28, Mean Corpuscular Hemoglobin Concent 34, Red Cell Distribution Width 14.6H, Platelet Count 221, Mean Platelet Volume 9.4, Neutrophils (%) (Auto) 67, Lymphocytes (%) (Auto) 22, Monocytes (%) (Auto) 10, Eosinophils (%) (Auto) 2, Basophils (%) (Auto) 0, Neutrophils # (Auto) 4.2, Lymphocytes # (Auto) 1.4, Monocytes # (Auto) 0.6, Eosinophils # (Auto) 0.1, Basophils # (Auto) 0.0, Sodium Level 138, Potassium Level 3.4L, Chloride Level 104, Carbon Dioxide Level 23, Anion Gap 11, Blood Urea Nitrogen 18, Creatinine 1.47H, Estimat Glomerular Filtration Rate 46, BUN/Creatinine Ratio 12, Glucose Level 107H, Calcium Level 9.2, Corrected Calcium 9.5, Phosphorus Level 3.0, Magnesium Level 1.7, Total Bilirubin 1.5H, Aspartate Amino Transf (AST/SGOT) 76H, Alanine Aminotransferase (ALT/SGPT) 112H, Alkaline Phosphatase 68, Total Protein 7.5, Albumin 3.6 Microbiology 11/22/19 MRSA Screen - Final, Complete MRSA not isolated Laboratory Tests 11/24/19 02:53 11/25/19 03:00 A/P: Assessment: 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 Episode on the evening of 11/22/19 required cardioversion; episode on the evening of 11/23/19 responded to iv dig and iv dilt S/p dual-chamber pacemaker-defib placement by Dr Peter in September 2019 MARIANA 3 on CKD 2. 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 Echo of 09/28/19: LVEF 40-45%, grade 2 diastolic dysfunction, biatrial enlargement, mod (valve area approx 1 sq cm), mild MR, mod TR, PASP 45-50 mmHg Inability to tolerate beta gabrielle Elevated liver enzymes and bilirubin, evaluated by Dr Ervin during this hospitalization who opined that they were related to CHF Coronary artery disease, mild, on card cath of 09/27/19 HUMBLE, not fully compliant with CPAP, managed by Dr Martinez Surgical history: cholecystectomy, rotator cuff surgery, knee replacement surgery and cataract surgery. Plan: * Continue dilt and dig * Continue oral amiodarone * Add low-dose furosemide and K to home regimen * Replenish K today * Continue to hold DIANNE-inhib for now (because of presentation with MARIANA-3). Resume as outpt when kidney injury fully resolved * Elevated liver enzymes and bilirubin of undetermined etiology - Dr Ervin has reviewed in Medical consultation and feels it is related to CHF. We appreciate her help * Close outpt f/u SHERWIN DALEY MD FACP FAC CCDS Nov 25, 2019 09:00
--- NOTE | 2019-11-25 09:05 | Cardiology Discharge Summary ---
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 Episode on the evening of 11/22/19 required cardioversion; episode on the evening of 11/23/19 responded to iv dig and iv dilt S/p dual-chamber pacemaker-defib placement by Dr Peter in September 2019 MARIANA 3 on CKD 2. 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 Echo of 09/28/19: LVEF 40-45%, grade 2 diastolic dysfunction, biatrial enlargement, mod (valve area approx 1 sq cm), mild MR, mod TR, PASP 45-50 mmHg Inability to tolerate beta gabrielle Elevated liver enzymes and bilirubin, evaluated by Dr Ervin during this hospitalization who opined that they were related to CHF Coronary artery disease, mild, on card cath of 09/27/19 HUMBLE, not fully compliant with CPAP, managed by Dr Martinez Surgical history: cholecystectomy, rotator cuff surgery, knee replacement surgery and cataract surgery. Chief Complaint/HPI Chief Complaint/HPI HPI 79 yo man with 2 presentations to ER within the last 3 days with tachycardia requiring cardioversion. Saw Dr Pruett yesterday. Amiodarone increased. BB added back to regimen. Had recurrent tach that afternoon, waited to come to ER for several hours, had to be cardioverted in ER. Currently feels well. Denies cp or syncope. No shortness of breath. Report marked intolerance to beta-gabrielle. Please see our note of today's date for condition at discharge. We had a detailed conversation with him and his and answered questions and advised close oupt f/u with Anna Stephenson and Brittani Discharge Summary Procedures None. Hospital Course Pending Labs Laboratory Tests 11/25/19 03:00: White Blood Count 6.3, Red Blood Count 4.65, Hemoglobin 13.2, Hematocrit 38, Mean Corpuscular Volume 83, Mean Corpuscular Hemoglobin 28, Mean Corpuscular Hemoglobin Concent 34, Red Cell Distribution Width 14.6, Platelet Count 221, Mean Platelet Volume 9.4, Neutrophils (%) (Auto) 67, Lymphocytes (%) (Auto) 22, Monocytes (%) (Auto) 10, Eosinophils (%) (Auto) 2, Basophils (%) (Auto) 0, Neutrophils # (Auto) 4.2, Lymphocytes # (Auto) 1.4, Monocytes # (Auto) 0.6, Eosinophils # (Auto) 0.1, Basophils # (Auto) 0.0, Sodium Level 138, Potassium Level 3.4, Chloride Level 104, Carbon Dioxide Level 23, Anion Gap 11, Blood Urea Nitrogen 18, Creatinine 1.47, Estimat Glomerular Filtration Rate 46, BUN/Creatinine Ratio 12, Glucose Level 107, Calcium Level 9.2, Corrected Calcium 9.5, Phosphorus Level 3.0, Magnesium Level 1.7, Total Bilirubin 1.5, Aspartate Amino Transf (AST/SGOT) 76, Alanine Aminotransferase (ALT/SGPT) 112, Alkaline Phosphatase 68, Total Protein 7.5, Albumin 3.6 Discussion & Recommendations Home Medications Reviewed patient Home Medication Reconciliation performed by pharmacy medication reconciliations on call pharmacy technician and/or nursing. Patients Allergies have been reviewed. Discharge Home Medications: Reviewed and agree with Discharge Medication list on patient's Discharge Instruction sheet Clinical Quality Measures DVT/VTE Risk/Contraindication: Risk Factor Score Per Nursin RFS Level Per Nursing on Admit: 3=High SHERWIN DALEY MD FACP [facility] CCDS Nov 25, 2019 09:05
--- NOTE | 2019-11-25 10:00 | NUR ---
HOA AHMADI demonstrates understanding of discharge instructions and accurately returns instructions upon questioning. Copy of Post-Discharge Instructions and Medication Discharge Instructions given to PT. HOA AHMADI is able to manage continuing needs after discharge. Patients belongings returned to PT. Skin dry and intact; no breakdown noted. Patient discharged from [facility] on 11/25/19 at 1000. HOA AHMADI left floor via WC, accompanied by STAFF/.
[2019-11-25] MEDS ORDERED: KCL 20 MEQ TAB (K-DUR) PO SCH (11:00)
== END 2019-11-25 10:00 | disposition home or self-care (01) | DRG 280 ==
LOC: EDUNIT# 20:00 → ER 20:01 → ICU 20:40 → CSD 11-25 16:46 → ICU 11-25 16:46
PROVIDERS: ADMIT Internal Medicine Cardiovascular Disease; ATTEND Internal Medicine
PROC: 5A2204Z Restoration of Cardiac Rhythm, Single (ICD-10-PCS; principal; 2019-11-22)
DX: I47.2 Ventricular tachycardia (principal); I21.A1 Myocardial infarction type 2; I50.43 Acute on chronic combined systolic (congestive) and diastolic (congestive) heart failure; I13.0 Hypertensive heart and chronic kidney disease with heart failure and stage 1 through stage 4 chronic kidney disease, or unspecified chronic kidney disease; N17.9 Acute kidney failure, unspecified; I42.9 Cardiomyopathy, unspecified; N18.2 Chronic kidney disease, stage 2 (mild); I48.0 Paroxysmal atrial fibrillation; G47.33 Obstructive sleep apnea (adult) (pediatric); I25.10 Atherosclerotic heart disease of native coronary artery without angina pectoris; I49.5 Sick sinus syndrome; K21.9 Gastro-esophageal reflux disease without esophagitis; M19.91 Primary osteoarthritis, unspecified site; Z95.810 Presence of automatic (implantable) cardiac defibrillator; Z79.01 Long term (current) use of anticoagulants
CPT/HCPCS: 36415; 71045; 76705; 80053; 82550; 83735; 83874; 83880; 84100; 84443; 84484; 85025; 85610; 85730; 87081; 93005; 93041; 96361; 96365; 96375; 99291

== ENCOUNTER → 2019-12-29 | Day surgery (SDC) | payer MEDICARE ==
[~2019-12-29] VITALS: Ht 177 cm; Wt 82.0 kg
[~2019-12-29] MED LIST changes: +AMIO400T5 PO; +DIGO250T15 PO; +DILT120T3 PO; +DILT360C26 PO; +FURO-125 PO; +ISOPROTERENOL 0.2 MG/D5W 50 ML IV ONE; +MIDAZOLAM 2 MG/2 ML (VERSED) VIAL ONE; +MIDAZOLAM 5 MG/5 ML (VERSED) VIAL IV ONE; +NS IV 1000 ML 1,000 ML IV ONE; +NS IV 1000 ML 1,000 ML IV SCH; +NS IV 1000 ML 1,000 ML ONE; +POTA-51 PO; +SENN-145 PO; +fentaNYL INJECTION 100 MCG/2 ML AMP IV ONE; +proPOfol 200 MG/20 ML (DIPRIVAN) VIAL IV ONE
[2019-12-29 07:37] VITALS: BP 170/98
[2019-12-29 08:13] VITALS: BP 142/93
[2019-12-29 08:18] VITALS: BP 129/77
[2019-12-29 08:23] VITALS: BP 131/77
[2019-12-29 08:31] VITALS: BP 133/78
--- NOTE | 2019-12-29 14:15 | Cardioversion ---
Cardioversion PROCEDURE PHYSICIAN: Luna Peter MD DATE OF PROCEDURE: 12/29/19 DIRECT EXTERNAL ELECTRICAL CARDIOVERSION: Indications: Atrial Fibrillation with rapid ventricular rate Preoperative diagnoses: Atrial Fibrillation with rapid ventricular rate Postoperative diagnosis: Sinus rhythm, Successful Electrical Cardioversion History: previous history of hemodynamically significant VT requiring ICD. Persistent atrial fibrillation. Anesthesia: By Anesthesia services Complications: None Specimen: None Contrast: 0 Flouroscopy: none Procedure Details: The patient was brought the cytogenetics laboratory manager after informed consent was taken, all the risks and complications were explained including the risk of stroke. Electrical cardioversion was carried out with anesthesia support with propofol. 200 joules of synchronized shock was delivered through external patches which promptly restored sinus rhythm. The patient tolerated the procedure well. Conclusions: 1.Successful Cardioversion. 2.Continue oral anticoagulation and rate controlling agent. 3.Follow up in office in 7 days. Luna Peter MD, [facility] Cardiac Electrophysiology Colleen PETER MD Dec 29, 2019 14:14
--- NOTE | 2019-12-29 15:39 | Anesthesia-General Post-Op ---
MAC Patient Condition Mental Status/LOC: Same as Preop Cardiovascular: Satisfactory Nausea/Vomiting: Absent Respiratory: Satisfactory Pain: Controlled Complications: Absent Post Op Complications Complications None Follow Up Care/Instructions Patient Instructions None needed. Anesthesiology Discharge Order Discharge Order Patient was seen this morning after the procedure and he was doing well, no complaints, stable vital signs, no apparent adverse anesthesia problems. AMBERLY OLIVERA DO Dec 29, 2019 15:39
== END | disposition home or self-care (01) ==
LOC: CATH 08:00
PROVIDERS: ATTEND Internal Medicine Interventional Cardiology
DX: I48.19 Other persistent atrial fibrillation (principal)
CPT/HCPCS: 92960; 93005

== ENCOUNTER → 2020-02-01 | Outpatient (CLI) | payer MEDICARE ==
[~2020-02-01] MED LIST changes: -ISOPROTERENOL 0.2 MG/D5W 50 ML IV ONE; -MIDAZOLAM 2 MG/2 ML (VERSED) VIAL ONE; -MIDAZOLAM 5 MG/5 ML (VERSED) VIAL IV ONE; -NS IV 1000 ML 1,000 ML IV ONE; -NS IV 1000 ML 1,000 ML IV SCH; -NS IV 1000 ML 1,000 ML ONE; -PANT40TA3 PO; +PANT40TA52 PO; -fentaNYL INJECTION 100 MCG/2 ML AMP IV ONE; -proPOfol 200 MG/20 ML (DIPRIVAN) VIAL IV ONE
== END ==
LOC: LABNPT 05:34
PROVIDERS: ATTEND Internal Medicine Interventional Cardiology
DX: Z01.812 Encounter for preprocedural laboratory examination (principal); Z20.828 Contact with and (suspected) exposure to other viral communicable diseases
CPT/HCPCS: 87635

== ENCOUNTER 2020-02-10 09:12 | Emergency (ER) | payer MEDICARE ==
[~2020-02-10] VITALS: Ht 177 cm; Wt 83.9 kg
[2020-02-10] MEDS ORDERED: NS 1000 ML IV BAG IV ONE (09:15)
[2020-02-10] MEDS ORDERED: MAG SULFATE 1 GM/100 ML IV PRE-MIX BAG IV ONE (09:15)
[2020-02-10] MEDS ORDERED: LIDOCAINE DRIP PRE-MIX 2 GM/500 ML BAG IV ONE (09:15)
[2020-02-10 09:34] LABS: BASOPHILS % (AUTO) 1 % (0-10); EOSINOPHILS % (AUTO) 0 % (0-10); HEMATOCRIT 39 % (40-54); HEMOGLOBIN 12.2 g/dL (13.3-17.7); LYMPHOCYTES # (AUTO) 1.3 10^3/uL (1.0-4.0); LYMPHOCYTES % (AUTO) 15 % (12-44); MEAN CORPUSCULAR HEMOGLOBIN 26 pg (25-34); MEAN CORPUSCULAR HGB CONC 31 g/dL (32-36); MEAN CORPUSCULAR VOLUME 84 fL (80-99); MEAN PLATELET VOLUME 9.3 fL (9.0-12.2); MONOCYTES # (AUTO) 0.7 10^3/uL (0.0-1.0); MONOCYTES % (AUTO) 8 % (0-12); NEUTROPHILS # (AUTO) 6.4 10^3/uL (1.8-7.8); NEUTROPHILS % (AUTO) 76 % (42-75); PLATELET COUNT 303 10^3/uL (130-400); WHITE BLOOD COUNT 8.4 10^3/uL (4.3-11.0)
[2020-02-10 09:45] LABS: INR 2.1 (0.8-1.4); PROTHROMBIN TIME PATIENT 24.3 SEC (12.2-14.7)
[2020-02-10] MEDS ORDERED: MIDAZOLAM 10 MG/2 ML (VERSED) VIAL IVP ONE (09:45)
[2020-02-10 09:46] LABS: POTASSIUM 3.9 MMOL/L (3.6-5.0)
[2020-02-10 09:47] LABS: CALCIUM 9.1 MG/DL (8.5-10.1)
[2020-02-10 09:48] LABS: TOTAL PROTEIN 8.1 GM/DL (6.4-8.2)
[2020-02-10 09:52] LABS: CREATININE SERUM 1.95 MG/DL (0.60-1.30)
--- NOTE | 2020-02-10 09:52 | Diagnostic Imaging Report ---
INDICATION: Tachycardia. TIME OF EXAM: 9:49 AM Correlation is made with prior chest from 11/24/2019. FINDINGS: The heart is enlarged but stable. Cardiac defibrillator remains in place. Lungs are clear. There is no infiltrate or failure. No effusion or pneumothorax is identified. IMPRESSION: Cardiomegaly. No acute feature is detected. Dictated by: Dictated on workstation # [id number]
[2020-02-10 09:55] LABS: MAGNESIUM 1.9 MG/DL (1.6-2.4)
[2020-02-10] MEDS ORDERED: MIDAZOLAM 5 MG/5 ML (VERSED) VIAL ONE (10:01)
--- NOTE | 2020-02-10 10:10 | NUR ---
1010- HR 151, 97% RA, 117/94, RR 14 1028- VERSED 5 MG 1029- FENTANYL 50MCG 1028- 2LNC PLACED 1031- SYNCRONIZED SHOCK OF 200 EMANUEL 1031- HR 74, CO2 21, BP 109/91, 98% 2LNC 1033- PT PLACED ON 10L OXYMASK. O2 SAT 87% 1035- SECOND SYNCRONIZED SHOCK OF 200 EMANUEL 1037- HR 140, BP 106/84, CO2 27 1045- 100MG LIDOCAINE BOLUS ADMINISTERED PER DR RAY 1053- LIDOCAINE DRIP STARTED AT 1MG/MIN, 15ML/HR 1056- THIRD SYNCRONIZED SHOCK OF 200 EMANUEL 1100- DR DALEY HERE TO SEE PT
[2020-02-10] MEDS: LACTATED RINGERS 1,000 ML IV ONE ×2 (10:15→10:20)
[2020-02-10] MEDS: MIDAZOLAM 5 MG/5 ML (VERSED) VIAL IVP ONE (10:28)
[2020-02-10] MEDS: fentaNYL INJECTION 100 MCG/2 ML AMP IVP ONE (10:29)
[2020-02-10] MEDS ORDERED: NS IV 1000 ML 1,000 ML IV SCH (10:50)
[2020-02-10] MEDS: LIDOCAINE DRIP 500 ML IV SCH (10:53)
--- NOTE | 2020-02-10 11:19 | Consultation-Cardiology ---
HPI-Cardiology Cardiology Consultation: Date of Consultation 02/10/20 Time Seen by a Provider: 10:55 Date of Admission Attending Physician Admitting Physician Shaji Gil DO Consulting Physician SHERWIN DALEY MD, MA, FACP, FACC, FSCAI, CCDS HPI: Chief Complaint: CC: Rapid heart beat HPI 79 yo man with known h/o recurrent arrhythmia (PAF and intermittent sustained VT) presented to ER when he noted his heart rate to be persistently high at home. Did not report any cp or shortness of breath or palp or syncope to the ER physician, Dr Alvarenga. ECG showed sustained VT at rate approx [address] Alvarenga proceed with elec cardioversion. This was done twice but he would sustain sinus only for a few seconds. 100 mg iv lidocaine given and an infusion of 1mg/min. Cardioversion again, currently maintaining sinus or dual chamber paced rhythm. Currently, under influence of sedatives given for elec cardioversion and not able to provide history Review of Systems-Cardiology Review of Systems Constitutional: other (under influence of sedatives at time of this exam and not able to provide ROS. To the extent a ROS could be obtained by the ER physician is given under HPI) NXO-Sswuxl-Ihiwof Hx Patient Social History Alcohol Use: Occasionally Uses Recreational Drug Use: No Smoking Status: Never a Smoker Recent Foreign Travel: No Recent Infectious Disease Expo: No Hospitalization with Isolation: Denies Immunizations Up To Date Tetanus Booster (TDap): Unknown Date of Pneumonia Vaccine: May 06, 2016 Date of Influenza Vaccine: Dec 28, 2018 Past Medical History PMH As described under Assessment. Family Medical History Family Medical History: Does not report fam h/o early CAD Allergies and Home Medications Allergies Coded Allergies: Penicillins (Verified Allergy, Unknown, 11/19/16) Home Medications Amiodarone HCl 200 Mg Tablet, 200 MG PO DAILY, (Reported) Apixaban 5 Mg Tablet, 5 MG PO BID, (Reported) Cyanocobalamin (Vitamin B-12) 1,000 Mcg/1 Ml Kit, 1,000 MCG IJ MONTHLY, (Rep orted) Digoxin 250 Mcg Tablet, 0.25 MG PO DAILY Prescribed by: ANDREE FREGOSO on 11/25/19 0841 Diltiazem HCl 120 Mg Tablet, 120 MG PO DAILY, (Reported) Bedrock 3 Polyunsat Fatty Acids 1,000 Mg Cap, 3,000 MG PO HS, (Reported) Patient Home Medication List Home Medication List Reviewed: Yes Physical Exam-Cardiology Physical Exam Vital Signs/I&O 02/10/20 02/10/20 02/10/20 09:15 10:53 11:25 Temp 35.3 Pulse 147 138 Resp 24 B/P (MAP) 127/104 (112) 99/84 Pulse Ox 100 O2 Delivery Room Air Nasal Cannula Capillary Refill : Less Than 3 Seconds Constitutional: well-developed, well-nourished HEENT: No xanthelasmas are seen Neck: carotid pulses are 2 + bilaterally Respiratory: No accessory muscle use; other (good bilat air entry) Cardiovascular: regular rate-rhythm, S1 and S2, systolic murmur (soft IZABEL at card base) Gastrointestinal: No tender; soft; No guarding, No rebound; audible bowel sounds Extremities: No clubbing, No cyanosis, No significant edema Neurologic/Psychiatric: other (moves all limbs equally) Skin: No rash on exposed areas, No ulcerations on exposed areas Data Review Labs Laboratory Tests 02/10/20 09:23: White Blood Count 8.4, Red Blood Count 4.64, Hemoglobin 12.2L, Hematocrit 39L, Mean Corpuscular Volume 84, Mean Corpuscular Hemoglobin 26, Mean Corpuscular H emoglobin Concent 31L, Red Cell Distribution Width 15.3H, Platelet Count 303, Mean Platelet Volume 9.3, Immature Granulocyte % (Auto) 0, Neutrophils (%) (Auto) 76H, Lymphocytes (%) (Auto) 15, Monocytes (%) (Auto) 8, Eosinophils (%) (Auto) 0, Basophils (%) (Auto) 1, Neutrophils # (Auto) 6.4, Lymphocytes # (Auto) 1.3, Monocytes # (Auto) 0.7, Eosinophils # (Auto) 0.0, Basophils # (Auto) 0.0, Immature Granulocyte # (Auto) 0.0, Prothrombin Time 24.3H, INR Comment 2.1H, Activated Partial Thromboplast Time 38H, Sodium Level 138, Potassium Level 3.9, Chloride Level 106, Carbon Dioxide Level 20L, Anion Gap 12, Blood Urea Nitrogen 27H, Creatinine 1.95H, Estimat Glomerular Filtration Rate 34, BUN/Creatinine Ratio 14, Glucose Level 138H, Calcium Level 9.1, Corrected Calcium 9.1, Magnesium Level 1.9, Total Bilirubin 2.0H, Aspartate Amino Transf (AST/SGOT) 54H , Alanine Aminotransferase (ALT/SGPT) 46, Alkaline Phosphatase 76, Myoglobin 194.2H, Troponin I 0.062H, Total Protein 8.1, Albumin 4.0 A/P-Cardiology Assessment/Admission Diagnosis This presentation with sustained VT, treated with iv lidocaine and external electrical cardioversion by the ER physician 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 Episode on the evening of 11/22/19 required cardioversion; episode on the evening of 11/23/19 responded to iv dig and iv dilt S/p dual-chamber pacemaker-defib placement by Dr Peter in September 2019 MARIANA 3 on CKD 2. 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 Echo of 09/28/19: LVEF 40-45%, grade 2 diastolic dysfunction, biatrial enlargement, mod (valve area approx 1 sq cm), mild MR, mod TR, PASP 45-50 mmHg Inability to tolerate beta gabrielle Elevated liver enzymes and bilirubin, evaluated by Dr Ervin during this hospitalization who opined that they were related to CHF Coronary artery disease, mild, on card cath of 09/27/19 HUMBLE, not fully compliant with CPAP, managed by Dr Martinez Surgical history: cholecystectomy, rotator cuff surgery, knee replacement surgery and cataract surgery. Discussion and Recomendations * Continue iv lidocaine at 2 mg/min * Continue medications that he has been on, including Multaq * Will try to contact EP in to see if he can be transferred for ablation, given very frequent recurrences despite meds SHERWIN DALEY MD [facility] CCDS Feb 10, 2020 11:19
--- NOTE | 2020-02-10 11:26 | ED Cardiac General ---
History of Present Illness General Chief Complaint: Conscious Sedation Stated Complaint: RAPID HEART BEAT Nursing Triage Note: PT ABM TO ROOM 05. REPORTS HIGH HEART RATE SINCE YESTERAY AT 1430. PT HAS HX OF WIDE COMPLEX TACHYCARDIA AND HAS BEEN CARDIOVERTED. Source: patient, old records Exam Limitations: no limitations History of Present Illness Date Seen by Provider: Feb 10, 2020 Time Seen by Provider: 09:16 Initial Comments This 79-year-old gentleman presents to the emergency room with complaints of tachycardia. He has a known history of atrial fibrillation and sustained ventricular tachycardia. He has required cardioversion in the past. He was scheduled to have ablation performed last week but that was canceled due to the COVID-19 surge. He presently takes Multaq and Cardizem. He does not tolerate amiodarone. He noticed tachycardia starting mid afternoon yesterday. He came to the emergency room this morning after consulting with Dr. Peter's office. Dr. Stephenson is his primary instrument technologist and Dr. Peter is his stereoplotter operator. He denies any chest pain. He has intermittent chronic shortness of breath but nothing unusual for him. He denies any fever. Telemetry rhythm shows ventricular tachycardia with a heart rate around 150. Patient additionally reports he experienced some swelling recently and restarted Lasix. He has an implanted pacemaker/defibrillator. Allergies and Home Medications Allergies Coded Allergies: Penicillins (Verified Allergy, Unknown, 11/19/16) Home Medications Amiodarone HCl 200 Mg Tablet, 200 MG PO DAILY, (Reported) Apixaban 5 Mg Tablet, 5 MG PO BID, (Reported) Cyanocobalamin (Vitamin B-12) 1,000 Mcg/1 Ml Kit, 1,000 MCG IJ MONTHLY, (Reported) Digoxin 250 Mcg Tablet, 0.25 MG PO DAILY Prescribed by: ANDREE FREGOSO on 11/25/19 0841 Diltiazem HCl 120 Mg Tablet, 120 MG PO DAILY, (Reported) [place] 3 Polyunsat Fatty Acids 1,000 Mg Cap, 3,000 MG PO HS, (Reported) Patient Home Medication List Home Medication List Reviewed: Yes Review of Systems Review of Systems Constitutional: no symptoms reported EENTM: No Symptoms Reported Respiratory: See HPI Cardiovascular: See HPI Gastrointestinal: No Symptoms Reported Genitourinary: No Symptoms Reported Musculoskeletal: no symptoms reported Skin: no symptoms reported Psychiatric/Neurological: No Symptoms Reported Endocrine: No Symptoms Reported Hematologic/Lymphatic: No Symptoms Reported Past Yzbggua-Gdnhij-Cnbzux Hx Patient Social History Alcohol Use: Occasionally Uses Number of Drinks Today: AA Alcohol Beverage of Choice: Beer Recreational Drug Use: No Smoking Status: Never a Smoker Recent Foreign Travel: No Contact w/Someone Who Travel: No Recent Infectious Disease Expo: No Recent Hopitalizations: No Immunizations Up To Date Tetanus Booster (TDap): Unknown PED Vaccines UTD: Yes Date of Pneumonia Vaccine: May 06, 2016 Date of Influenza Vaccine: Dec 28, 2018 Past Medical History Surgeries: Yes (SEE BELOW) Defibrillator, Eye Surgery, Gallbladder, Joint Replacement, Pacemaker Respiratory: No Cardiac: Yes (WIDE COMPLEX TACHYCARDIA; PACEMAKER/DEFIBRILLATOR 09/2019;CARDIOVERSIONS) Hypertension, Syncope Neurological: No Reproductive Disorders: No Sexually Transmitted Disease: No HIV/AIDS: No Genitourinary: No Gastrointestinal: Yes (OPEN CHOLECYSTECTOMY) Gastroesophageal Reflux, Gall Bladder Disease Musculoskeletal: Yes (BILAT ROTATOR CUFF; BILAT TKR) Arthritis Endocrine: No HEENT: Yes (BILAT CATARACT SURGERY) Cataract Cancer: No Psychosocial: No Integumentary: No Blood Disorders: No Family Medical History No Pertinent Family Hx PSH: -BILATERAL CATARACT SURGERY -BILATERAL ROTATOR CUFF SURGERY -BILATERAL TOTAL KNEE REPLACEMENTS -OPEN CHOLECYSTECTOMY 1969--LARGE MIDLINE SCAR -PACEMAKER/DEFIBRILLATOR 09/2019 -CARDIOVERSIONS FOR WIDE COMPLEX TACHYCARDIA Physical Exam Vital Signs Vital Signs - First Documented 02/10/20 09:15 Temp 35.3 Pulse 147 Resp 24 B/P (MAP) 127/104 (112) Pulse Ox 100 O2 Delivery Room Air Capillary Refill : Less Than 3 Seconds Height, Weight, BMI Height: 5'10.00" Weight: 190lbs. 0.0oz. 86.235718zt; 26.00 BMI Method: General Appearance: No Apparent Distress, WD/WN HEENT: PERRL/EOMI, Normal ENT Inspection Respiratory: Lungs Clear, Normal Breath Sounds, No Accessory Muscle Use, No Res piratory Distress Cardiovascular: No Edema, No Murmur, Normal Peripheral Pulses, Tachycardia Gastrointestinal: Normal Bowel Sounds, Non Tender, Soft Extremity: Normal Inspection, No Pedal Edema Neurologic/Psychiatric: Alert, Oriented x3, No Motor/Sensory Deficits, Normal Mood/Affect, licensing specialist II-XII Norm as Tested Skin: Normal Color, Warm/Dry Procedures/Interventions Patient Education: Explained Benefits, Explained Risks, Pt. Ack. Understanding Breath Sounds per Auscultation: Clear Heart Sounds per Auscultation: Regular Airway Exam: Mouth opens >2 fingers Sedation Adminstration Time: 1542 Sufficient conscious sedation achieved with Versed 5 mg and fentanyl 100 mcg. Patient did experience some minimal hypotension while still in V. tach and sedated. This was treated with IV fluids. He did require supplemental oxygen by oxygen mask. These issues resolved easily with treatment. Progress Cardioversion After discussion with patient as well as Dr. Huang patient consented to conscious sedation for cardioversion. Settings for cardioversion were discussed with Dr. Peter. He recommended synchronized cardioversion at 200 J. After achieving appropriate sedation, patient was cardioverted. The first attempt resulted in resolution of ventricular tachycardia for about 1 minute. Cardioversion was repeated at the same settings resulting in resolution of ventricular tachycardia for 15 to 30 seconds. This was discussed with Dr. Huang. He recommended giving a 100 mg lidocaine bolus followed by lidocaine drip and then attempting cardioversion again. The bolus was given and a slow push and the lidocaine drip was initiated. After a few minutes cardioversion was attempted again and was successful. Patient was maintained in a paced rhythm. Progress/Results/Core Measures Results/Orders Lab Results Laboratory Tests Test 02/10/20 09:23 Range/Units White Blood Count 8.4 4.3-11.0 10^3/uL Red Blood Count 4.64 4.30-5.52 10^6/uL Hemoglobin 12.2 L 13.3-17.7 g/dL Hematocrit 39 L 40-54 % Mean Corpuscular Volume 84 80-99 fL Mean Corpuscular Hemoglobin 26 25-34 pg Mean Corpuscular Hemoglobin Concent 31 L 32-36 g/dL Red Cell Distribution Width 15.3 H 10.0-14.5 % Platelet Count 303 130-400 10^3/uL Mean Platelet Volume 9.3 9.0-12.2 fL Immature Granulocyte % (Auto) 0 % Neutrophils (%) (Auto) 76 H 42-75 % Lymphocytes (%) (Auto) 15 12-44 % Monocytes (%) (Auto) 8 0-12 % Eosinophils (%) (Auto) 0 0-10 % Basophils (%) (Auto) 1 0-10 % Neutrophils # (Auto) 6.4 1.8-7.8 10^3/uL Lymphocytes # (Auto) 1.3 1.0-4.0 10^3/uL Monocytes # (Auto) 0.7 0.0-1.0 10^3/uL Eosinophils # (Auto) 0.0 0.0-0.3 10^3/uL Basophils # (Auto) 0.0 0.0-0.1 10^3/uL Immature Granulocyte # (Auto) 0.0 0.0-0.1 10^3/uL Prothrombin Time 24.3 H 12.2-14.7 SEC INR Comment 2.1 H 0.8-1.4 Activated Partial Thromboplast Time 38 H 24-35 SEC Sodium Level 138 135-145 MMOL/L Potassium Level 3.9 3.6-5.0 MMOL/L Chloride Level 106 98-107 MMOL/L Carbon Dioxide Level 20 L 21-32 MMOL/L Anion Gap 12 5-14 MMOL/L Blood Urea Nitrogen 27 H 7-18 MG/DL Creatinine 1.95 H 0.60-1.30 MG/DL Estimat Glomerular Filtration Rate 34 BUN/Creatinine Ratio 14 Glucose Level 138 H 70-105 MG/DL Calcium Level 9.1 8.5-10.1 MG/DL Corrected Calcium 9.1 8.5-10.1 MG/DL Magnesium Level 1.9 1.6-2.4 MG/DL Total Bilirubin 2.0 H 0.1-1.0 MG/DL Aspartate Amino Transf (AST/SGOT) 54 H 5-34 U/L Alanine Aminotransferase (ALT/SGPT) 46 0-55 U/L Alkaline Phosphatase 76 40-136 U/L Myoglobin 194.2 H 10.0-92.0 NG/ML Troponin I 0.062 H <0.028 NG/ML Total Protein 8.1 6.4-8.2 GM/DL Albumin 4.0 3.2-4.5 GM/DL My Orders Orders - CASANDRA RAY MD Cbc With Automated Diff (02/10/20:) Magnesium (02/10/20:) Chest 1 View, Ap/Pa Only (02/10/20:) Ekg Tracing (02/10/20:) Comprehensive Metabolic Panel (02/10/20) Myoglobin Serum (10/16/20 09:22) Protime With Inr (02/10/20 09:22) Partial Thromboplastin Time (02/10/20 09:22) O2 (02/10/20:22) Monitor-Rhythm Ecg Trace Only (02/10/20 09:22) Lipid Panel (02/11/20 06:00) Ed Iv/Invasive Line Start (02/10/20 09:22) Troponin I (02/10/20 09:22) Midazolam Injection (Versed Injection) (02/10/20 09:45) Fentanyl Injection (Sublimaze Injection (02/10/20 09:45) Midazolam Injection (Versed Injection) (02/10/20 10:01) Midazolam Injection (Versed Injection) (02/10/20 10:15) Lactated Ringers (Lr 1000 Ml Iv Solution (02/10/20 10:09) Lidocaine Drip (Xylocaine Drip) (02/10/20 10:45) Ekg Tracing (02/10/20 11:22) Ekg Tracing (02/10/20 11:22) Ekg Tracing (02/10/20 11:22) Magnesium 1 Gm/100 Ml Ivpb (Magnesium Felix (02/10/20 11:30) Magnesium 1 Gm/100 Ml Ivpb (Magnesium Felix (02/10/20 11:30) Ns Iv 1000 Ml (Sodium Chloride 0.9%) (02/10/20 10:50) Medications Given in ED Current Medications Medications Dose Ordered Sig/Billy Route Start Time Stop Time Status Last Admin Dose Admin Fentanyl Citrate 100 mcg ONCE ONCE IVP 02/10/20 09:45 02/10/20 09:46 DC 02/10/20 10:29 100 MCG Lactated Ringer's 1,000 ml @ 0 mls/hr Q0M ONCE IV 02/10/20 10:09 02/10/20 10:10 DC 02/10/20 10:15 0 MLS/HR Magnesium Sulfate/ Dextrose 100 ml @ 100 mls/hr ONCE ONCE IV 02/10/20 11:30 02/10/20 12:29 DC 02/10/20 12:34 100 MLS/HR Magnesium Sulfate/ Dextrose 100 ml @ 100 mls/hr ONCE ONCE IV 02/10/20 11:30 02/10/20 12:29 DC 02/10/20 11:43 100 MLS/HR Midazolam HCl 5 mg ONCE ONCE IVP 02/10/20 10:15 02/10/20 10:16 DC 02/10/20 10:28 5 MG Vital Signs/I&O 02/10/20 02/10/20 02/10/20 09:15 10:53 11:25 Temp 35.3 Pulse 147 138 Resp 24 B/P (MAP) 127/104 (112) 99/84 Pulse Ox 100 O2 Delivery Room Air Nasal Cannula Blood Pressure Mean: 89 Progress Progress Note #1: Time: 11:45 Progress Note Patient was immediately seen and evaluated. He was found to have sustained ventricular tachycardia. Blood pressure was stable and he remained alert and in no distress. Case was discussed with Dr. Stephenson is his primary instrument technologist. He recommended cardioversion. This was discussed with Dr. Peter as his stereoplotter operator who recommended synchronized cardioversion at [address] Huang was consulted as instrument technologist on-call. Conscious sedation was performed with patient's consent and patient was cardioverted x2. Neither of these cardioversions lasted more than about [address] Huang was then contacted and he recommended administering a lidocaine bolus followed by lidocaine drip and then attempting cardioversion again. This approach was successful. Patient remains in paced rhythm at this time. Ventricular tachycardia has not returned. He remains on a lidocaine drip at 2 mg/min. Dr. Huang indicated transfer is probably the best approach for this patient. He is working on those arrangements now. Progress Note #2: Time: 14:22 Progress Note Patient remains in a paced rhythm at a heart rate in the 40s to 60s. Dr. Huang was able to make arrangements with Dr. Briseno at [facility] for transfer. I spoke with Dr. Briseno and am awaiting a call back from the hospital for bed assignment. Patient is agreeable to transfer to [facility]. Progress Note #3: Time: 15:21 Progress Note The [employer] scheduling representative presented to the ER and interrogated the pace maker/defibrillator. Some settings were adjusted to help correct the bradycardia. He was changed from atrial paced to ventricular paced. This increased his heart rate to the 60s. Room assignment was given from [facility]. EMS has been dispatched. EKG #1: EKG Time: 09:15 Rate: 147 Rhythm: V.Tach Comment Ventricular tachycardia (wide-complex regular tachycardia) EKG #2: EKG Time: 10:52 Rate: 88 Comment Atrial ventricular dual paced complexes. Ventricular tachycardia resolved. This is a post cardioversion EKG. EKG #3: EKG Time: 10:57 Rate: 60 Comment Atrial-ventricular dual paced rhythm. No overt ischemia. EKG #4: EKG Time: 10:58 Rate: 47 Comment Atrial-ventricular dual paced complexes. No overt ischemia. Prolonged VT interval. Diagnostic Imaging Diagonstic Imaging: Xray Plain Films/CT/US/NM/MRI: chest Comments Chest x-ray viewed by me and report reviewed. See report below: NAME: HOA AHMADI [facility] REC#: [id number] PT STATUS: REG ER : 1940 PHYSICIAN: CASANDRA RAY MD ADMIT DATE: 02/10/20/ER Draft Date of Exam:02/10/20 CHEST 1 VIEW, AP/PA ONLY INDICATION: Tachycardia. TIME OF EXAM: 9:49 AM Correlation is made with prior chest from 11/24/2019. FINDINGS: The heart is enlarged but stable. Cardiac defibrillator remains in place. Lungs are clear. There is no infiltrate or failure. No effusion or pneumothorax is identified. IMPRESSION: Cardiomegaly. No acute feature is detected. Dictated on workstation # [id number] Dict: 02/10/20 0949 Trans: 02/10/20 0951 [id number] Interpreted by: MARIANA SNYDER MD Departure Impression Primary Impression: Sustained ventricular tachycardia Disposition: XF T-TRM HOSP Condition: Improved Transfer Transfer Reason: Exceeds level of care Time Spoke to Accepting Phy: 13:50 Transfer Progress Notes Transfer accepted by Dr. Briseno at [facility]. Transfer Time: 15:47 Transfer Facility: [facility] Method of Transfer: EMS Departure-Patient Inst. Referrals: CAROLANN ROMAN DO (PCP/Family) Primary Care Physician Patient Instructions: Moderate Sedation in Adults (DC), Moderate Sedation in Children (DC) Copy Copies To 1: ROMINA STEPHENSON MD Copies To 2: CAROLANN ROMAN JOSHUA T MD Feb 10, 2020 11:26
[2020-02-10] MEDS ORDERED: MAGNESIUM 1 GM/100 ML IVPB 100 ML IV ONE ×2 (11:30)
--- NOTE | 2020-02-10 11:39 | Consultation-Cardiology ---
HPI-Cardiology Cardiology Consultation: Date of Consultation 02/10/20 Time Seen by a Provider: 10:55 Date of Admission Attending Physician Admitting Physician Shaji Gil DO Consulting Physician SHERWIN DALEY MD, MA, FACP, FACC, FSCAI, CCDS HPI: Chief Complaint: CC: Rapid heart beat HPI 79 yo man with known h/o recurrent arrhythmia (PAF and intermittent sustained VT) presented to ER when he noted his heart rate to be persistently high at home. Did not report any cp or shortness of breath or palp or syncope to the ER physician, Dr Alvarenga. ECG showed sustained VT at rate approx [address] Alvarenga proceed with elec cardioversion. This was done twice but he would sustain sinus only for a few seconds. 100 mg iv lidocaine given and an infusion of 1mg/min. Cardioversion again, currently maintaining sinus or dual chamber paced rhythm. Currently, under influence of sedatives given for elec cardioversion and not able to provide history Review of Systems-Cardiology Review of Systems Constitutional: other (under influence of sedatives at time of this exam and not able to provide ROS. To the extent a ROS could be obtained by the ER physician is given under HPI) QYM-Romvmp-Fdznum Hx Patient Social History Alcohol Use: Occasionally Uses Recreational Drug Use: No Smoking Status: Never a Smoker Recent Foreign Travel: No Recent Infectious Disease Expo: No Hospitalization with Isolation: Denies Immunizations Up To Date Tetanus Booster (TDap): Unknown Date of Pneumonia Vaccine: May 06, 2016 Date of Influenza Vaccine: Dec 28, 2018 Past Medical History PMH As described under Assessment. Family Medical History Family Medical History: Does not report fam h/o early CAD Allergies and Home Medications Allergies Coded Allergies: Penicillins (Verified Allergy, Unknown, 11/19/16) Home Medications Amiodarone HCl 200 Mg Tablet, 200 MG PO DAILY, (Reported) Apixaban 5 Mg Tablet, 5 MG PO BID, (Reported) Cyanocobalamin (Vitamin B-12) 1,000 Mcg/1 Ml Kit, 1,000 MCG IJ MONTHLY, (Rep orted) Digoxin 250 Mcg Tablet, 0.25 MG PO DAILY Prescribed by: ANDREE FREGOSO on 11/25/19 0841 Diltiazem HCl 120 Mg Tablet, 120 MG PO DAILY, (Reported) [place] 3 Polyunsat Fatty Acids 1,000 Mg Cap, 3,000 MG PO HS, (Reported) Patient Home Medication List Home Medication List Reviewed: Yes Physical Exam-Cardiology Physical Exam Vital Signs/I&O 02/10/20 02/10/20 02/10/20 09:15 10:53 11:25 Temp 35.3 Pulse 147 138 Resp 24 B/P (MAP) 127/104 (112) 99/84 Pulse Ox 100 O2 Delivery Room Air Nasal Cannula Capillary Refill : Less Than 3 Seconds Constitutional: well-developed, well-nourished HEENT: No xanthelasmas are seen Neck: carotid pulses are 2 + bilaterally Respiratory: No accessory muscle use; other (good bilat air entry) Cardiovascular: regular rate-rhythm, S1 and S2, systolic murmur (soft IZABEL at card base) Gastrointestinal: No tender; soft; No guarding, No rebound; audible bowel sounds Extremities: No clubbing, No cyanosis, No significant edema Neurologic/Psychiatric: other (moves all limbs equally) Skin: No rash on exposed areas, No ulcerations on exposed areas Data Review Labs Laboratory Tests 02/10/20 09:23: White Blood Count 8.4, Red Blood Count 4.64, Hemoglobin 12.2L, Hematocrit 39L, Mean Corpuscular Volume 84, Mean Corpuscular Hemoglobin 26, Mean Corpuscular H emoglobin Concent 31L, Red Cell Distribution Width 15.3H, Platelet Count 303, Mean Platelet Volume 9.3, Immature Granulocyte % (Auto) 0, Neutrophils (%) (Auto) 76H, Lymphocytes (%) (Auto) 15, Monocytes (%) (Auto) 8, Eosinophils (%) (Auto) 0, Basophils (%) (Auto) 1, Neutrophils # (Auto) 6.4, Lymphocytes # (Auto) 1.3, Monocytes # (Auto) 0.7, Eosinophils # (Auto) 0.0, Basophils # (Auto) 0.0, Immature Granulocyte # (Auto) 0.0, Prothrombin Time 24.3H, INR Comment 2.1H, Activated Partial Thromboplast Time 38H, Sodium Level 138, Potassium Level 3.9, Chloride Level 106, Carbon Dioxide Level 20L, Anion Gap 12, Blood Urea Nitrogen 27H, Creatinine 1.95H, Estimat Glomerular Filtration Rate 34, BUN/Creatinine Ratio 14, Glucose Level 138H, Calcium Level 9.1, Corrected Calcium 9.1, Magnesium Level 1.9, Total Bilirubin 2.0H, Aspartate Amino Transf (AST/SGOT) 54H , Alanine Aminotransferase (ALT/SGPT) 46, Alkaline Phosphatase 76, Myoglobin 194.2H, Troponin I 0.062H, Total Protein 8.1, Albumin 4.0 A/P-Cardiology Assessment/Admission Diagnosis This presentation with sustained VT, treated with iv lidocaine and external electrical cardioversion by the ER physician 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 Episode on the evening of 11/22/19 required cardioversion; episode on the evening of 11/23/19 responded to iv dig and iv dilt S/p dual-chamber pacemaker-defib placement by Dr Peter in September 2019 MARIANA 3 on CKD 2 Chronic systolic and diastolic CHF Mild troponin elevation, likely due to sustained tachycardia for several hours Non-ischemic cardiomyopathy and valvular heart disease. Echo of 09/28/19: LVEF 40-45%, grade 2 diastolic dysfunction, biatrial enlargement, mod (valve area approx 1 sq cm), mild MR, mod TR, PASP 45-50 mmHg Inability to tolerate beta gabrielle Elevated liver enzymes and bilirubin, evaluated by Dr Ervin during this hospitalization who opined that they were related to CHF Coronary artery disease, mild, on card cath of 09/27/19 HUMBLE, not fully compliant with CPAP, managed by Dr Martinez Surgical history: cholecystectomy, rotator cuff surgery, knee replacement surgery and cataract surgery. Discussion and Recomendations * Continue iv lidocaine at 2 mg/min * Continue medications that he has been on, including Multaq * Will try to contact EP in to see if he can be transferred for ablation, given very frequent recurrences despite meds SHERWIN DALEY MD [facility] CCDS Feb 10, 2020 11:39
--- NOTE | 2020-02-10 11:50 | NUR ---
PT IS AROUSABLE AND ALERT. RESTING COMFORTABLY. PTS OXYGEN DECREASED TO 2LNC. PTS CALLED AT THIS TIME AND UPDATED.
[2020-02-10 15:55] VITALS: BP 118/93
== END 2020-02-10 15:55 | disposition short-term general hospital (02) ==
LOC: EDUNIT# 09:12 → ER 09:14
DX: I47.2 Ventricular tachycardia (principal); I10 Essential (primary) hypertension; Z95.810 Presence of automatic (implantable) cardiac defibrillator; Z88.0 Allergy status to penicillin; Z79.01 Long term (current) use of anticoagulants
CPT/HCPCS: 36415; 71045; 80053; 83735; 83874; 84484; 85025; 85610; 85730; 93041

== ENCOUNTER 2020-02-29 14:49 | Emergency (ER) | payer MEDICARE ==
[~2020-02-29] VITALS: Ht 177.8 cm; Wt 91.6 kg
[~2020-02-29 14:49] MED LIST changes: -AMIO200T4 PO; +AMIO200T6 PO; +AMLO-250 PO; +AMLO-251 PO; -AMLO10TA7 PO; -AMLO5TAB9 PO
[2020-02-29] MEDS ORDERED: NS IV 500 ML 500 ML IV ONE (15:04)
--- NOTE | 2020-02-29 15:04 | ED Cardiac General ---
History of Present Illness General Chief Complaint: Cardiac/General Problems Stated Complaint: HTN Nursing Triage Note: PT AMBULATE TO ROOM [address] TRUJILLO'S OFFICE WITH C/O HYPOTENSION. PT REPORTS RECENTLY PRESCRIBED X2 NEW MEDICATIONS. History of Present Illness Date Seen by Provider: Feb 29, 2020 Time Seen by Provider: 15:04 Initial Comments 79-year-old female sent in with concerns for low blood pressure. Patient reports that about a week ago he was that [place] where he had ablations 2. He did start him on 2 medications. Reports that since starting the 2 new medications he seemed to have some increasing shortness of breath with exertion, no appetite and generalized malaise feeling. Patient had labs checked by Dr. Goff's office today and his creatinine was slightly more elevated around 2.2. Chart review shows patients normally around 1.5 and 1.9. Patient reports that since being released at home for the last week his blood pressures of been starlike in the 90s to low 100s. Patient reports that he gets a little lightheaded when he stands up and with some ambulation. He denies any chest pain, fevers, chills, cough, nausea vomiting or diarrhea. Allergies and Home Medications Allergies Coded Allergies: Penicillins (Verified Allergy, Unknown, 11/19/16) Home Medications Amiodarone HCl 200 Mg Tablet, 200 MG PO DAILY, (Reported) Apixaban 5 Mg Tablet, 5 MG PO BID, (Reported) Cyanocobalamin (Vitamin B-12) 1,000 Mcg/1 Ml Kit, 1,000 MCG IJ MONTHLY, (Reported) Digoxin 250 Mcg Tablet, 0.25 MG PO DAILY Prescribed by: ANDREE FREGOSO on 11/25/19 0841 Diltiazem HCl 120 Mg Tablet, 120 MG PO DAILY, (Reported) [place] 3 Polyunsat Fatty Acids 1,000 Mg Cap, 3,000 MG PO HS, (Reported) Patient Home Medication List Home Medication List Reviewed: Yes Review of Systems Review of Systems Constitutional: No chills; dizziness; No fever Respiratory: Denies Cough; SOA With Exertion Cardiovascular: Denies Chest Pain Gastrointestinal: Denies Abdominal Pain, Denies Diarrhea, Denies Nausea, Denies Vomiting Musculoskeletal: no symptoms reported Skin: no symptoms reported Psychiatric/Neurological: No Symptoms Reported Endocrine: No Symptoms Reported Hematologic/Lymphatic: No Symptoms Reported Past Wsmcxio-Wcubia-Jnxbeo Hx Past Med/Social Hx: Reviewed Nursing Past Med/Soc Hx Patient Social History Alcohol Beverage of Choice: Beer Recent Foreign Travel: No Contact w/Someone Who Travel: No Recent Infectious Disease Expo: No Recent Hopitalizations: No Immunizations Up To Date Tetanus Booster (TDap): Unknown PED Vaccines UTD: Yes Date of Pneumonia Vaccine: May 06, 2016 Date of Influenza Vaccine: Dec 28, 2018 Past Medical History Surgeries: Yes (SEE BELOW) Defibrillator, Eye Surgery, Gallbladder, Joint Replacement, Pacemaker Respiratory: No Cardiac: Yes (WIDE COMPLEX TACHYCARDIA; PACEMAKER/DEFIBRILLATOR 09/2019; CARDIOVERSIONS) Hypertension, Syncope Neurological: No Reproductive Disorders: No Sexually Transmitted Disease: No HIV/AIDS: No Genitourinary: No Gastrointestinal: Yes (OPEN CHOLECYSTECTOMY) Gastroesophageal Reflux, Gall Bladder Disease Musculoskeletal: Yes (BILAT ROTATOR CUFF; BILAT TKR) Arthritis Endocrine: No HEENT: Yes (BILAT CATARACT SURGERY) Cataract Cancer: No Psychosocial: No Integumentary: No Blood Disorders: No Family Medical History No Pertinent Family Hx PSH: -BILATERAL CATARACT SURGERY -BILATERAL ROTATOR CUFF SURGERY -BILATERAL TOTAL KNEE REPLACEMENTS -OPEN CHOLECYSTECTOMY 1969--LARGE MIDLINE SCAR -PACEMAKER/DEFIBRILLATOR 09/2019 -CARDIOVERSIONS FOR WIDE COMPLEX TACHYCARDIA Physical Exam Vital Signs Vital Signs - First Documented 02/29/20 14:58 Temp 35.1 Pulse 90 Resp 18 B/P (MAP) 98/78 (85) O2 Delivery Room Air Capillary Refill : Less Than 3 Seconds Height, Weight, BMI Height: 5'10.00" Weight: 190lbs. 0.0oz. 86.128282zn; 28.00 BMI Method: General Appearance: No Apparent Distress, WD/WN HEENT: PERRL/EOMI Neck: Non Tender Respiratory: Lungs Clear, Normal Breath Sounds Cardiovascular: Regular Rate, Rhythm Gastrointestinal: Non Tender, Soft Extremity: Normal Capillary Refill, Normal Inspection, Pedal Edema Neurologic/Psychiatric: Alert, Oriented x3, regrader II-XII Norm as Tested Skin: Normal Color, Warm/Dry Lymphatic: No Adenopathy Procedures/Interventions Patient Education: Explained Benefits, Explained Risks, Pt. Ack. Understanding Breath Sounds per Auscultation: Clear Heart Sounds per Auscultation: Regular Airway Exam: Mouth opens >2 fingers Sedation Adminstration Time: 1542 Progress/Results/Core Measures Results/Orders Lab Results Laboratory Tests Test 02/29/20 15:12 Range/Units Sodium Level 136 135-145 MMOL/L Potassium Level 4.6 3.6-5.0 MMOL/L Chloride Level 100 98-107 MMOL/L Carbon Dioxide Level 24 21-32 MMOL/L Anion Gap 12 5-14 MMOL/L Blood Urea Nitrogen 49 H 7-18 MG/DL Creatinine 2.85 H 0.60-1.30 MG/DL Estimat Glomerular Filtration Rate 22 BUN/Creatinine Ratio 17 Glucose Level 105 70-105 MG/DL Calcium Level 8.7 8.5-10.1 MG/DL My Orders Orders - LUIS E NOBLES DO Ed Iv/Invasive Line Start (02/29/20 15:04) Ns Iv 500 Ml (Sodium Chloride 0.9%) (02/29/20 15:04) Chest Pa/Lat (2 View) (02/29/20 15:04) Ekg Tracing (02/29/20 15:04) Basic Metabolic Panel (02/29/20 16:03) Medications Given in ED Current Medications Medications Dose Ordered Sig/Billy Route Start Time Stop Time Status Last Admin Dose Admin Sodium Chloride 500 ml @ 500 mls/hr Q1H ONCE IV 02/29/20 15:04 02/29/20 16:03 DC 02/29/20 15:20 500 MLS/HR Vital Signs/I&O 02/29/20 14:58 Temp 35.1 Pulse 90 Resp 18 B/P (MAP) 98/78 (85) O2 Delivery Room Air Blood Pressure Mean: 85 Progress Progress Note : Time: 16:38 Progress Note 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 Patient and Dr. Saravia had concerns with low blood pressure. Patient's blood pressure was in the mid 90s systolic the mid 100s while he was here. This is similar to what it was in the hospital when he was at [place]. Discussed with Dr. Saravia. Patient would like to go home and Dr. Saravia is in agreement. We'll have him stop his Coreg and follow-up with her clinic next week or sooner if needed. Patient to be discharged home in stable condition Initial ECG Impression Date: Feb 29, 2020 Initial ECG Impression Time: 15:09 Initial ECG Rate: 80 Initial ECG Intervals LBBB Comment Paced, LBBB Diagnostic Imaging Diagonstic Imaging: Xray Plain Films/CT/US/NM/MRI: chest Comments [facility]. [place], [place] NAME: HOA [facility]HM[facility] REC#: [id number] PT STATUS: REG ER : 1940 PHYSICIAN: LUIS E NOBLES DO ADMIT DATE: 02/29/20/ER Draft Date of Exam:02/29/20 CHEST PA/LAT (2 VIEW) INDICATION: Hypertension. EXAMINATION: PA and lateral chest. FINDINGS: Heart size and pulmonary vascularity are within normal limits. There is a dual-chamber pacemaker. There are small bilateral pleural effusions with some basilar atelectasis. IMPRESSION: Basilar atelectasis and effusions appear to be new since 02/10/2020. Dictated on workstation # [id number] Dict: 02/29/20 1547 Trans: 02/29/20 1549 [facility] [id number] Interpreted by: KADE WRIGHT MD Electronically signed by: Departure Impression Primary Impression: Right-sided congestive heart failure Qualified Codes: I50.810 - Right heart failure, unspecified Additional Impression: Hypotension due to medication Disposition: HOME, SELF-CARE Condition: Stable Departure-Patient Inst. Referrals: CAROLANN ROMAN DO (PCP/Family) Primary Care Physician Patient Instructions: Low Blood Pressure, Dealing with Low Blood Pressure from the Drugs You Take Add. Discharge Instructions: Please stop your Coreg Follow-up with Dr. Saravia's office next week, sooner if needed All discharge instructions reviewed with patient and/or family. Voiced u nderstanding. LUIS E NOBLES DO Feb 29, 2020 15:04
--- NOTE | 2020-02-29 15:50 | Diagnostic Imaging Report ---
INDICATION: Hypertension. EXAMINATION: PA and lateral chest. FINDINGS: Heart size and pulmonary vascularity are within normal limits. There is a dual-chamber pacemaker. There are small bilateral pleural effusions with some basilar atelectasis. IMPRESSION: Basilar atelectasis and effusions appear to be new since 02/10/2020. Dictated by: Dictated on workstation # [id number]
[2020-02-29 16:12] LABS: POTASSIUM 4.6 MMOL/L (3.6-5.0)
[2020-02-29 16:13] LABS: CALCIUM 8.7 MG/DL (8.5-10.1)
[2020-02-29 16:17] LABS: CREATININE SERUM 2.85 MG/DL (0.60-1.30)
[2020-02-29 16:56] VITALS: BP 98/73
== END 2020-02-29 16:56 | disposition home or self-care (01) ==
LOC: EDUNIT# 14:49 → ER 14:51
DX: I11.0 Hypertensive heart disease with heart failure (principal); I50.810 Right heart failure, unspecified; I95.2 Hypotension due to drugs; Z88.0 Allergy status to penicillin; Z95.810 Presence of automatic (implantable) cardiac defibrillator; Z79.01 Long term (current) use of anticoagulants
CPT/HCPCS: 36415; 71046; 80048; 93005

== ENCOUNTER → 2020-03-08 | Day surgery (SDC) | payer MEDICARE ==
[~2020-03-08] VITALS: Ht 177.8 cm; Wt 90.0 kg
[2020-03-08] VITALS (9 sets, daily range): BP systolic 70–104; BP diastolic 50–84
[~2020-03-08] MED LIST changes: +BACITRACIN INJECTION 50,000 UNIT, SODIUM CHLORIDE 0.9% IRRIGATIO 500 ML IR ONE; +ENOXAPARIN 100 MG/1 ML (LOVENOX) SYR ONE; +ENOXAPARIN 100 MG/1 ML (LOVENOX) SYR SC ONE; +FLU QUAD HIGH DOSE 240 MCG/0.7 ML 2020-21 (FLUZONE) IM ONE; +FURO40TA4 PO; +HEParin (CATH LAB) 0 ML IV ONE; +LIDOCAINE 1% INJ 20 ML 20 ML VIAL ONE; +LIDOCAINE 2% VISCOUS 15 ML UDC ONE; +LIDOCAINE 2% VISCOUS 15 ML UDC PO ONE; +LISI2.5T PO; +METO2.5T PO; +MIDAZOLAM 2 MG/2 ML (VERSED) VIAL ONE; +NF-MEXI150 PO; +NS IV 1000 ML 1,000 ML IV ONE; +NS IV 1000 ML 1,000 ML ONE; +SOTA80TA22 PO; +VANCOMYCIN INJECTION 1,000 MG in NS (IVPB) 250 ML IV ONE; +proPOfol 200 MG/20 ML (DIPRIVAN) VIAL IV ONE
[2020-03-08 07:44] LABS: HEMOGLOBIN 12.5 g/dL (13.3-17.7); MEAN PLATELET VOLUME 9.5 fL (9.0-12.2)
[2020-03-08 07:55] LABS: ALBUMIN 3.8 GM/DL (3.2-4.5); POTASSIUM 3.8 MMOL/L (3.6-5.0)
[2020-03-08 07:56] LABS: CALCIUM 9.4 MG/DL (8.5-10.1)
[2020-03-08 07:57] LABS: TOTAL PROTEIN 7.7 GM/DL (6.4-8.2)
[2020-03-08 07:59] LABS: BILIRUBIN,TOTAL 2.7 MG/DL (0.1-1.0)
[2020-03-08 08:01] LABS: CREATININE SERUM 2.43 MG/DL (0.60-1.30); INR 1.3 (0.8-1.4); PROTHROMBIN TIME PATIENT 16.8 SEC (12.2-14.7)
--- NOTE | 2020-03-08 08:35 | NUR ---
AND HAS BEEN TO SEE PT, PLAN HAS CHANGED TO AWAIT BI-V DEVICE DUE TO SIGNIFICANT IMPROVEMENT IN SYMPTOMS AND PHYSICAL ASSESSMENT. CHANGING TO FARIDA CARDIOVERSION BASED OFF OF DEVICE INTERROGATION.
--- NOTE | 2020-03-08 10:32 | Anesthesia-General Post-Op ---
MAC Patient Condition Mental Status/LOC: Same as Preop Cardiovascular: Satisfactory Nausea/Vomiting: Absent Respiratory: Satisfactory Pain: Controlled Complications: Absent Post Op Complications Complications None Follow Up Care/Instructions Patient Instructions None needed. Anesthesiology Discharge Order Discharge Order Patient is doing well, no complaints, stable vital signs, no apparent adverse anesthesia problems. No complications reported per nursing. MAURICE GEIGER CRNA Mar 08, 2020 10:32
--- NOTE | 2020-03-08 11:35 | Cardioversion ---
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 He also has history of atrial fibrillation. He had VT ablation done in [place]. Poor LV function with ventricular pacing over 90 percent and congestive heart failure which improved with medications therefore we postponed upgrade to bi-V ICD which was scheduled for today. However patient is in persistent atrial fibrillation and we recommended cardioversion. Patient had paced rhythm therefore we did ICD interrogation before and after the cardioversion. Also transesophageal echocardiogram was performed since the patient was off Eliquis in anticipation of bi-V ICD upgrade. Informed consent was taken including risk of stroke as well as damage to the food pipe. The patient and family understood all the risks and would like to proceed with transesophageal echocardiogram assisted cardioversion. Procedures: 1. Transesophageal echocardiogram. 2. Cardioversion. 3. ICD interrogation before cardioversion. 4. ICD interrogation after the cardioversion. Anesthesia: By Anesthesia services Complications: None Specimen: None Contrast: 0 Flouroscopy: none Procedure Details: The patient was brought the color laboratory technician after informed consent was taken, all the risks and complications were explained including the risk of stroke. Transesophageal echocardiogram did not show any left atrial or left atrial appendage thrombus. ICD interrogation showed the patient to be in persistent atrial fibrillation with ventricular paced rhythm. Electrical cardioversion was carried out with anesthesia support with propofol. 200 joules of synchronized shock was delivered through external patches which promptly restored atrial paced, ventricular paced rhythm. ICD interrogation post cardioversion showed underlying rhythm to very slow atrial sensed, ventricular sensed rhythm, atrial paced ventricular paced rhythm when device was not inhibited. The patient tolerated the procedure well. Conclusions: 1.Successful Cardioversion. 2.Continue oral anticoagulation and rate controlling agent. 3.Follow up in office in [address] Stephenson. Luna Peter MD, [facility] Cardiac Electrophysiology Colleen PETER MD Mar 08, 2020 11:35
== END ==
LOC: CATH 08:00
PROVIDERS: ATTEND Internal Medicine Interventional Cardiology
DX: I48.11 Longstanding persistent atrial fibrillation (principal); I11.0 Hypertensive heart disease with heart failure; I50.9 Heart failure, unspecified; I49.3 Ventricular premature depolarization; I25.10 Atherosclerotic heart disease of native coronary artery without angina pectoris; G47.33 Obstructive sleep apnea (adult) (pediatric); Z95.0 Presence of cardiac pacemaker; Z79.01 Long term (current) use of anticoagulants; Z79.899 Other long term (current) drug therapy; Z88.0 Allergy status to penicillin; Z20.828 Contact with and (suspected) exposure to other viral communicable diseases; Z90.49 Acquired absence of other specified parts of digestive tract; Z80.9 Family history of malignant neoplasm, unspecified
CPT/HCPCS: 80053; 85027; 85610; 85730; 87081; 92960; 93005; 93312 ×2; 93320; 93325; U0002; 36415; 87635

== ENCOUNTER → 2020-03-19 | Outpatient (CLI) | payer MEDICARE ==
[~2020-03-19] MED LIST changes: -BACITRACIN INJECTION 50,000 UNIT, SODIUM CHLORIDE 0.9% IRRIGATIO 500 ML IR ONE; +BARIUM for suspension 96% w/w (Vanilla Silq Medium Density) PO ONE; +BARIUM for suspension 98% w/w (Vanilla Silq High Density) PO ONE; -ENOXAPARIN 100 MG/1 ML (LOVENOX) SYR ONE; -ENOXAPARIN 100 MG/1 ML (LOVENOX) SYR SC ONE; -FLU QUAD HIGH DOSE 240 MCG/0.7 ML 2020-21 (FLUZONE) IM ONE; -HEParin (CATH LAB) 0 ML IV ONE; -LIDOCAINE 1% INJ 20 ML 20 ML VIAL ONE; -LIDOCAINE 2% VISCOUS 15 ML UDC ONE; -LIDOCAINE 2% VISCOUS 15 ML UDC PO ONE; -MIDAZOLAM 2 MG/2 ML (VERSED) VIAL ONE; -NS IV 1000 ML 1,000 ML IV ONE; -NS IV 1000 ML 1,000 ML ONE; -VANCOMYCIN INJECTION 1,000 MG in NS (IVPB) 250 ML IV ONE; -proPOfol 200 MG/20 ML (DIPRIVAN) VIAL IV ONE
--- NOTE | 2020-03-19 10:59 | Diagnostic Imaging Report ---
INDICATION: Dysphagia. FINDINGS: Esophageal motility was assessed fluoroscopically. Satisfactory efficacy of peristaltic wave. There are no esophageal masses. Esophageal mucosa is unremarkable. There is a small hiatal hernia. There is no significant gastroesophageal reflux appreciated despite maneuvers IMPRESSION: Small hiatal hernia otherwise unremarkable. Dictated by: Dictated on workstation # [id number]
== END ==
LOC: RAD 09:16
PROVIDERS: ATTEND Otolaryngology Otolaryngology/Facial Plastic Surgery
DX: R13.10 Dysphagia, unspecified (principal); K44.9 Diaphragmatic hernia without obstruction or gangrene
CPT/HCPCS: 74220

== ENCOUNTER → 2020-05-08 | Outpatient (CLI) | payer MEDICARE ==
[~2020-05-08] MED LIST changes: -BARIUM for suspension 96% w/w (Vanilla Silq Medium Density) PO ONE; -BARIUM for suspension 98% w/w (Vanilla Silq High Density) PO ONE; -CLIN300C11 PO; +CLIN300C12 PO
== END ==
LOC: LABNPT 06:10
PROVIDERS: ATTEND Internal Medicine
DX: Z01.818 Encounter for other preprocedural examination (principal)

== ENCOUNTER → 2020-05-09 | Outpatient (CLI) | payer MEDICARE | LOC: LABNPT 07:03 | PROVIDERS: ATTEND Internal Medicine | DX: Z01.812 Encounter for preprocedural laboratory examination (principal); Z20.822 Contact with and (suspected) exposure to COVID-19 | CPT/HCPCS: 87635 ==

== ENCOUNTER → 2020-07-05 | Outpatient (CLI) | payer MEDICARE ==
[~2020-07-05] MED LIST changes: -LISI40TA PO; +LISI40TA9 PO
== END ==
LOC: CARD 13:00
PROVIDERS: ATTEND Internal Medicine Cardiovascular Disease
DX: I50.9 Heart failure, unspecified (principal); I08.3 Combined rheumatic disorders of mitral, aortic and tricuspid valves
CPT/HCPCS: 93306

== ENCOUNTER → 2021-08-19 | Outpatient (CLI) | payer MEDICARE ==
[~2021-08-19] MED LIST changes: -AMIO200T6 PO; +AMIO200T65 PO; +CATHETER FLUSH 10 ML SYR IV PRN; +CLIN-144 PO; -CLIN300C12 PO; +HOLD METFORMIN - RECEIVED CONTRAST 20 ML VIAL IV SCH; +IOHEXOL 350 MG/ML 100 ML (OMNIPAQUE 350) VIAL IV ONE; -LISI1TAB29 PO; +LISI1TAB44 PO; -LISI2.5T PO; +LISI2.5T13 PO; +NS 100 ML (IVPB) BAG IV ONE
--- NOTE | 2021-08-19 11:26 | Diagnostic Imaging Report ---
EXAMINATION: CT abdomen with intravenous contrast. TECHNIQUE: Multiple contiguous axial images were obtained through the abdomen after the administration of intravenous contrast. All CT scans use one or more of the following dose optimizing techniques: automated exposure control, MA and/or KvP adjustment based on patient size and exam type or iterative reconstruction. HISTORY: Jaundice COMPARISON: None available. FINDINGS: Limited views of the lower thorax show an enlarged heart and pacemaker leads. There is a small right pleural effusion. Liver surface is nodular consistent with cirrhosis. No focal liver lesions are seen. There is no biliary ductal dilation. Gallbladder is absent. Pancreas is normal. Spleen is normal. Adrenal glands are normal. Left kidney is atrophic. No suspicious renal lesions are seen. There is no hydronephrosis. Visualized bowel is normal in caliber without obstruction or inflammation. There is a small amount of ascites. No free air. There are calcified fascial sutures in the anterior abdominal wall. No abdominal lymphadenopathy. Aorta is normal in caliber without aneurysm. There are no suspicious osseus lesions. IMPRESSION: 1. Cirrhotic liver with small amount of ascites. 2. Small right pleural effusion. Dictated by: Dictated on workstation # [id number]
== END ==
LOC: RAD 10:15
PROVIDERS: ATTEND Nurse Practitioner Family
DX: K74.60 Unspecified cirrhosis of liver (principal); L29.8 Other pruritus; J90 Pleural effusion, not elsewhere classified
CPT/HCPCS: 74160

== ENCOUNTER → 2021-10-30 | Outpatient (CLI) | payer MEDICARE ==
[~2021-10-30] MED LIST changes: -CATHETER FLUSH 10 ML SYR IV PRN; -HOLD METFORMIN - RECEIVED CONTRAST 20 ML VIAL IV SCH; -IOHEXOL 350 MG/ML 100 ML (OMNIPAQUE 350) VIAL IV ONE; -NS 100 ML (IVPB) BAG IV ONE
--- NOTE | 2021-10-30 13:59 | Diagnostic Imaging Report ---
PROCEDURE: US carotid duplex bilateral. TECHNIQUE: Multiple Real-time grayscale images were obtained over the carotid arteries in various projections, bilaterally. Additional spectral analysis and color Doppler duplex images were also obtained. INDICATION: Preop. FINDINGS: There is mild plaquing throughout both carotid systems. The velocities are normal bilaterally. No velocity elevation or stenosis is identified. The right vertebral artery was not visualized. The left vertebral artery is antegrade. IMPRESSION: Nonvisualized right vertebral artery. The study is otherwise unremarkable. There is no evidence of a hemodynamically significant stenosis. Parameters based on the consensus panel Abdi-Scale and Doppler ultrasound criteria published February 2003, Radiology, Volume 229. DOPPLER (peak systolic velocity M/S Right Left CCA .44 .47 ICA Proximal .36 .51 ICA Mid .43 .49 ICA Distal .47 .52 RATIO 1.05 1.11 ECA .49 .34 VERT NOT SEEN .17 Dictated by: Dictated on workstation # [id number]
== END ==
LOC: RAD 12:30
DX: Z01.810 Encounter for preprocedural cardiovascular examination (principal); I35.0 Nonrheumatic aortic (valve) stenosis
CPT/HCPCS: 93880